=== PATIENT | female | born 1995 | race Hispanic/Latino ===

== ENCOUNTER 2018-01-05 21:54 | Emergency (ER) | payer BC, OTHER ==
--- NOTE | 2018-01-05 23:44 | EDPHYS ---
Physician Documentation [facility] Name: Zacarias Thomson Age: 22 yrs Sex: Female : 1995 Arrival Date: 01/05/2018 Time: 21:58 Bed 14 Private MD: Esequiel Boyd T ED Physician Josesito Woods HPI: 01/05 23:35 This 22 yrs old Female presents to ER via Ambulatory with complaints of snw Headache, Nausea. 23:35 The patient complains of pain to the forehead. The patient describes the headache as snw waxing and waning. Onset: The symptoms/episode began/occurred suddenly. Associated signs and symptoms: Pertinent positives: weakness, nausea. Severity of symptoms: At its worst the pain was moderate. Headache History: Denies prior headaches. It is unknown whether or not the patient has had similar symptoms in the past. The patient has not recently seen a physician. 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 - Social history:: Smoking status: Patient uses tobacco products, smokes one-half pack cigarettes per day, Patient/guardian denies using alcohol, street drugs. ROS: 23:34 Eyes: Negative for injury, pain, redness, and discharge, ENT: Negative for injury, snw pain, and discharge, Neck: Negative for injury, pain, and swelling, Cardiovascular: Negative for chest pain, palpitations, and edema, Respiratory: Negative for shortness of breath, cough, wheezing, and pleuritic chest pain. 23:34 Back: Negative for injury and pain, : Negative for injury, bleeding, discharge, and swelling, MS/Extremity: Negative for injury and deformity, Skin: Negative for injury, rash, and discoloration. 23:34 Constitutional: Positive for body aches, malaise. 23:34 Abdomen/GI: Positive for nausea. 23:34 Neuro: Positive for headache, lightheadedness. Exam: 23:34 Constitutional: This is a well developed, well nourished patient who is awake, alert, snw and in no acute distress. Head/Face: Normocephalic, atraumatic. Eyes: Pupils equal round and reactive to light, extra-ocular motions intact. Lids and lashes normal. Conjunctiva and sclera are non-icteric and not injected. Cornea within normal limits. Periorbital areas with no swelling, redness, or edema. ENT: Nares patent. No nasal discharge, no septal abnormalities noted. Tympanic membranes are normal and external auditory canals are clear. Oropharynx with no redness, swelling, or masses, exudates, or evidence of obstruction, uvula midline. Mucous membranes moist. Neck: Trachea midline, no thyromegaly or masses palpated, and no cervical lymphadenopathy. Supple, full range of motion without nuchal rigidity, or vertebral point tenderness. No Meningismus. Chest/axilla: Normal chest wall appearance and motion. Nontender with no deformity. No lesions are appreciated. Cardiovascular: Regular rate and rhythm with a normal S1 and S2. No gallops, murmurs, or rubs. Normal PMI, no JVD. No pulse deficits. Respiratory: Lungs have equal breath sounds bilaterally, clear to auscultation and percussion. No rales, rhonchi or wheezes noted. No increased work of breathing, no retractions or nasal flaring. Abdomen/GI: Soft, non-tender, with normal bowel sounds. No distension or tympany. No guarding or rebound. No evidence of tenderness throughout. Back: No spinal tenderness. No costovertebral tenderness. Full range of motion. Skin: Warm, dry with normal turgor. Normal color with no rashes, no lesions, and no evidence of cellulitis. MS/ Extremity: Pulses equal, no cyanosis. Neurovascular intact. Full, normal range of motion. Neuro: Awake and alert, GCS 15, oriented to person, place, time, and situation. Cranial nerves II-XII grossly intact. Motor strength 5/5 in all extremities. Sensory grossly intact. Cerebellar exam normal. Normal gait. Psych: Awake, alert, with orientation to person, place and time. Behavior, mood, and affect are within normal limits. Vital Signs: 22:23 BP 112 / 79; Pulse 63; Resp 18; Temp 98.1(O); Pulse Ox 99% on R/A; Weight 111.13 kg fc (R); Height 5 ft. 4 in. (162.56 cm) (R); Pain 3/10; 22:23 Body Mass Index 42.05 (111.13 kg, 162.56 cm) [place] Coma Score: 23:50 Eye Response: spontaneous(4). Verbal Response: oriented(5). Motor Response: obeys snw commands(6). Total: 15. MDM: 22:56 Patient medically screened. [facility] 23:50 Data reviewed: vital signs, nurses notes. Data interpreted: Pulse oximetry: on room air snw is 99 %. Counseling: I had a detailed discussion with the patient and/or guardian regarding: the historical points, exam findings, and any diagnostic results supporting the discharge/admit diagnosis, lab results, the need for outpatient follow up, to return to the emergency department if symptoms worsen or persist or if there are any questions or concerns that arise at home. Special discussion: Based on the history and exam findings, there is no indication for further emergent testing or inpatient evaluation. I discussed with the patient/guardian the need to see the primary care provider for further evaluation of the symptoms. 01/05 23:46 Order name: Urine Dipstick--Ancillary (enter results) [facility] 01/05 23:46 Order name: Urine --Ancillary (enter results) [facility] 01/06 00:04 Order name: Urine Microscopic Only [facility] 01/05 23:34 Order name: Urine Test (obtain specimen); Complete Time: 23:44 snw 01/05 23:34 Order name: Urine Dipstick-Ancillary (obtain specimen); Complete Time: 23:44 snw 01/06 00:06 Order name: Urine Culture EDIL 01/06 00:06 Order name: Group A Streptococcus Rapid Sc EDIL Administered Medications: 01/06 00:00 Drug: Rocephin (cefTRIAXone) 1 grams Route: IM; Site: left gluteus; 00:00 Follow up: Response: No adverse reaction fc Disposition: 09:16 Co-signature as Attending Physician, Josesito Woods MD I agree with the assessment and [facility] plan of care. Disposition: 01/05/18 23:44 Discharged to Home. Impression: Urinary tract infection, site not specified, Headache. - Condition is Stable. - Discharge Instructions: Urinary Tract Infection, Rehydration, Adult. - Prescriptions for Macrobid 100 mg Oral Capsule - take 1 capsule by ORAL route every 12 hours for 10 days; 20 capsule. Diclofenac Sodium 75 mg Oral Tablet Sustained Release - take 1 tablet by ORAL route 2 times per day; 30 tablet. - Work release form, Medication Reconciliation Form, Thank You Letter, Antibiotic Education, Prescription Opioid Use form. - Follow up: Esequiel Boyd MD; When: 2 - 3 days; Reason: Recheck today's complaints, Continuance of care, Re-evaluation by your physician. Follow up: Emergency Department; When: As needed; Reason: Worsening of condition. Signatures: Dispatcher [employer] EDMS Shagufta Rico RN RN mw Anderson, Corey, MD MD cha Therrien, Shelly, SUPERVISOR-C SUPERVISOR-Csnw Leilani Mello, RN RN fc
--- NOTE | 2018-01-05 23:44 | ER ---
Nurse's Notes [facility] Name: Zacarias Thomson Age: 22 yrs Sex: Female : 1995 Arrival Date: 01/05/2018 Time: 21:58 Bed 14 Private MD: Esequiel Boyd T Diagnosis: Urinary tract infection, site not specified;Headache Presentation: 01/05 22:17 Presenting complaint: Patient states: for the past few hrs she has been having fc headache, nausea and felt as if she was going to faint. Transition of care: patient was not received from another setting of care. Onset of symptoms was January 05, 2018 at 19:00. Care prior to arrival: Medication(s) given: Motrin, 600 mg, last at 2100. 22:17 Method Of Arrival: Ambulatory fc 22:17 Acuity: ADALBERTO 3 Triage Assessment: 22:24 Headache History: Denies prior headaches. General: Appears comfortable, Behavior is fc calm, cooperative, appropriate for age. Pain: Complains of pain in head Pain currently is 3 out of 10 on a pain scale. Quality of pain is described as aching, throbbing, Pain began 3 hours ago. Is continuous, Also complains of nausea. EENT: No deficits noted. Neuro: Level of Consciousness is awake, alert, obeys commands, Oriented to person, place, time, situation, Biological Engineer are equal bilaterally Moves all extremities. Full function Gait is steady, Speech is normal, Facial symmetry appears normal, Reports headache in left frontal area. Cardiovascular: No deficits noted. Respiratory: No deficits noted. GI: Reports nausea. : No deficits noted. Derm: Skin is pink, warm \T\ dry. Musculoskeletal: Circulation, motion, and sensation intact. Capillary refill < 3 seconds, Range of motion: intact in all extremities. 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 - Social history:: Smoking status: Patient uses tobacco products, smokes one-half pack cigarettes per day, Patient/guardian denies using alcohol, street drugs. Screenin:45 Abuse screen: Denies threats or abuse. Denies injuries from another. Nutritional aa1 screening: No deficits noted. Tuberculosis screening: No symptoms or risk factors identified. Fall Risk None identified. Assessment: 22:45 General: Appears in no apparent distress. comfortable, Behavior is calm, cooperative, aa1 appropriate for age. Pain: Denies pain. Neuro: Level of Consciousness is awake, alert, obeys commands, Oriented to person, place, time, situation, Moves all extremities. Full function Gait is steady, Speech is normal. Respiratory: Airway is patent Respiratory effort is even, unlabored, Respiratory pattern is regular, symmetrical. GI: Abdomen is non-distended, Abd is soft and non tender X 4 quads. Reports nausea. : No signs and/or symptoms were reported regarding the genitourinary system. EENT: No signs and/or symptoms were reported regarding the EENT system. Derm: Skin is intact, is healthy with good turgor, Skin is pink, warm \T\ dry. Musculoskeletal: Circulation, motion, and sensation intact. Capillary refill < 3 seconds. Vital Signs: 22:23 BP 112 / 79; Pulse 63; Resp 18; Temp 98.1(O); Pulse Ox 99% on R/A; Weight 111.13 kg fc (R); Height 5 ft. 4 in. (162.56 cm) (R); Pain 3/10; 22:23 Body Mass Index 42.05 (111.13 kg, 162.56 cm) fc [place] Coma Score: 23:50 Eye Response: spontaneous(4). Verbal Response: oriented(5). Motor Response: obeys snw commands(6). Total: 15. ED Course: 21:58 Patient arrived in ED. do 21:58 Esequiel Boyd MD is Private Physician. do 22:18 Triage completed. fc 22:19 Arm band placed on Patient placed in waiting room, Patient notified of wait time. fc 22:45 Patient has correct armband on for positive identification. Bed in low position. Call aa1 light in reach. Pulse ox on. NIBP on. 22:55 Cristiana Potter FNP-C is PHCP. snw 22:55 Josesito Woods MD is Attending Physician. snw 23:05 Jenn Rivera RN is Primary Nurse. aa1 23:44 Esequiel Boyd MD is Referral Physician. [facility] 01/06 00:18 No provider procedures requiring assistance completed. Patient did not have IV access mw during this emergency room visit. Administered Medications: 00:00 Drug: Rocephin (cefTRIAXone) 1 grams Route: IM; Site: left gluteus; 00:00 Follow up: Response: No adverse reaction fc Outcome: 01/05 23:44 Discharge ordered by . snw 01/06 00:18 Discharged to home ambulatory. mw Condition: good Discharge instructions given to patient, Instructed on discharge instructions, follow up and referral plans. no drinking with medication, medication usage, Prescriptions given X 2. 00:19 Patient left the ED. mw Addendum: 01/09/2018 16:41 Addendum: Culture Results: Positive urine culture. Phone call Attempt #1 called patient s s at 1627, Left VM. Signatures: Shagufta Rico RN RN Jenn Rivera RN RN aa1 Cristiana Potter, DISTRICT SUPERINTENDENT-C DISTRICT SUPERINTENDENT-Csnw Leilani Mello RN RN Maddie Simpson RN RN Anjana Wilson do
[2018-01-05] MEDS ORDERED: CEFTRIAXONE 1000 MG/VIAL ONE (23:53)
[2018-01-05] MEDS ORDERED: WATER FOR INJ,STERILE 10 ML ONE (23:54)
[2018-01-06 00:46] VITALS: BP 112/79; TEMP 98.1; O2SAT 99
[2018-01-06 00:50] LABS: Urine Blood TRACE (NEG); Urine Glucose NEGATIVE (NEG); Urine Protein NEGATIVE (NEG); Urine Specific Gravity 1.025 (1.005-1.030)
[2018-01-06 01:07] LABS: Urine RBC <5 /HPF (NONE SEEN)
[2018-01-06 01:08] LABS: Urine Bacteria LOADED /HPF (<20); Urine Culture Reflex Order NOT NEEDED
== END 2018-01-06 00:19 | disposition home or self-care (01) ==
LOC: ER 21:54
DX: N39.0 Urinary tract infection, site not specified (principal); F17.210 Nicotine dependence, cigarettes, uncomplicated; Z88.2 Allergy status to sulfonamides
CPT/HCPCS: 81003; 81015; 81025; 87070; 87077; 87081; 87086; 87088; 87186; 96372; 99283

== ENCOUNTER 2018-01-14 18:52 | Emergency (ER) | payer BC, OTHER ==
[2018-01-14] MEDS ORDERED: FAMOTIDINE 20 MG/2 ML VIAL IV ONE (20:47)
[2018-01-14] MEDS ORDERED: ONDANSETRON 4 MG/2 ML VIAL ONE (20:47)
[2018-01-14] MEDS ORDERED: NA CHLORIDE 0.9% 1,000 ML ONE (20:47)
[2018-01-14] MEDS ORDERED: PROMETHAZINE 25 MG/ML VIAL ONE (20:47)
[2018-01-14 21:26] LABS: Absolute Lymphocytes (CBC) 0.6 K/uL (0.7-4.9); Absolute Monocytes 0.5 K/uL (0.1-1.3); Basophils % 0.2 % (0-1.3); Lymphocytes % 3.9 % (15.3-44.8); MCH 27.6 pg (27.0-35.0); MCV 82.6 fL (80-100); MPV 8.6 fL (7.6-11.3); Monocytes % 3.2 % (3.3-12.3); RBC Red Blood Cell Count 5.82 M/uL (3.86-4.86)
--- NOTE | 2018-01-14 21:41 | RAD REPORT ---
EXAM DESCRIPTION: Seth Single View01/14/2018 9:30 pm CLINICAL HISTORY: Abdominal pain COMPARISON: 2014 FINDINGS: The lungs appear clear of acute infiltrate. The heart is normal size IMPRESSION: No acute abnormalities displayed
[2018-01-14 21:46] LABS: Blood Morphology Comment NOT SEEN (NOT SEEN); Platelet Estimate ADEQ; Urine White Blood Cell Casts OK
[2018-01-14 21:47] LABS: Urine Bacteria 20-50 /HPF (<20); Urine Culture Reflex Order REFLEXED; Urine Mucus 2+ /HPF (NONE SEEN); Urine RBC <5 /HPF (NONE SEEN)
[2018-01-14 22:12] LABS: Bicarbonate 27 mEq/L (21-31); Glucose Level 97 mg/dL (65-120); Lipase 15 U/L (22-51); Potassium 3.6 mEq/L (3.6-5.0); Sodium Level 135 mEq/L (135-145)
[2018-01-14 22:19] LABS: ALT/SGPT 14 IU/L (10-60); AST/SGOT 17 IU/L (10-42); Albumin 3.2 g/dL (3.2-5.5); Alkaline Phosphatase 64 IU/L (42-121); Amylase Level 48 U/L (28-100); BUN Blood Urea Nitrogen 11 mg/dL (6-20); Bilirubin Direct 0.2 mg/dL (0-0.2); Protein, Total 7.1 g/dL (6.0-8.3)
[2018-01-14 23:45] LABS: Urine Blood NEGATIVE (NEG); Urine Glucose NEGATIVE (NEG); Urine Protein 1+ (NEG)
[2018-01-15] MEDS ORDERED: ONDANSETRON 4 MG/2 ML VIAL ONE (00:07)
[2018-01-15] MEDS ORDERED: NA CHLORIDE 0.9% 1,000 ML ONE (00:07)
[2018-01-15] MEDS ORDERED: FENTANYL CITR 100 MCG/2 ML ONE (00:07)
--- NOTE | 2018-01-15 01:28 | ER ---
Nurse's Notes [facility] Name: Zacarias Thomson Age: 22 yrs Sex: Female : 1995 Arrival Date: 01/14/2018 Time: 18:53 Bed 20 Private MD: Diagnosis: Gastroenteritis Presentation: 01/14 19:49 Presenting complaint: Patient states: Vomiting x 10 episodes today. Reports vomiting aj undigested subway sandwich this AM, that she ate for dinner last night. Reports she is unable to tolerate food or liquids today. Transition of care: patient was not received from another setting of care. Onset of symptoms was January 14, 2018. Initial Sepsis Screen: Does the patient meet any 2 criteria? No. Patient's initial sepsis screen is negative. Does the patient have a suspected source of infection? No. Patient's initial sepsis screen is negative. Care prior to arrival: None. 19:49 Method Of Arrival: Ambulatory aj 19:49 Acuity: ADALBERTO 3 aj Triage Assessment: 19:51 General: Appears in no apparent distress. comfortable, Behavior is calm, cooperative, aj appropriate for age. Pain: Complains of pain in right upper quadrant and left upper quadrant. Neuro: Level of Consciousness is awake, alert, obeys commands, Oriented to person, place, time, situation, Appropriate for age. Respiratory: Airway is patent Trachea midline Respiratory effort is even, unlabored, Respiratory pattern is regular, symmetrical. GI: Reports upper abdominal pain, nausea, vomiting. Derm: Skin is intact, is healthy with good turgor, Skin is pink, warm \\T\\ dry. normal. 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 - Social history:: Smoking status: Patient/guardian denies using tobacco. Screenin:02 Abuse screen: Denies threats or abuse. Denies injuries from another. Nutritional bs1 screening: No deficits noted. Tuberculosis screening: No symptoms or risk factors identified. Fall Risk None identified. Assessment: 20:03 General: Appears in no apparent distress. uncomfortable, Behavior is calm, cooperative, bs1 appropriate for age. Pain: Complains of pain in left upper quadrant and right upper quadrant Pain does not radiate. Neuro: Level of Consciousness is awake, alert, obeys commands, Oriented to person, place, time, situation, Appropriate for age Log Deck Tender are equal bilaterally Moves all extremities. Gait is steady, Speech is normal. Cardiovascular: Denies chest pain, palpitations, shortness of breath, Heart tones S1 S2 present Capillary refill < 3 seconds Patient's skin is warm and dry. Respiratory: Airway is patent Trachea midline Respiratory effort is even, unlabored, Respiratory pattern is regular, symmetrical, Breath sounds are clear bilaterally. GI: Abdomen is round Bowel sounds present X 4 quads. Abdomen is tender to palpation in right upper quadrant and left upper quadrant Reports upper abdominal pain, diarrhea, intolerance of food, nausea, vomiting. : No deficits noted. No signs and/or symptoms were reported regarding the genitourinary system. EENT: No deficits noted. No signs and/or symptoms were reported regarding the EENT system. Derm: Skin is intact. Musculoskeletal: Circulation, motion, and sensation intact. Capillary refill < 3 seconds, Range of motion: intact in all extremities. 21:03 Reassessment: Patient appears in no apparent distress at this time. No changes from bs1 previously documented assessment. Patient and/or family updated on plan of care and expected duration. Pain level reassessed. Patient is alert, oriented x 3, equal unlabored respirations, skin warm/dry/pink. 22:03 Reassessment: Patient and/or family updated on plan of care and expected duration. Pain bs1 level reassessed. Patient is alert, oriented x 3, equal unlabored respirations, skin warm/dry/pink. Pending lab results. Reassessment: Informed CT that patient finished oral contrast at 2245. Patient states "I am feeling relief from the medication.". 23:30 Reassessment: Patient appears in no apparent distress at this time. No changes from bs1 previously documented assessment. Patient and/or family updated on plan of care and expected duration. Pain level reassessed. Patient is alert, oriented x 3, equal unlabored respirations, skin warm/dry/pink. 01/15 00:10 Reassessment: Patient in CT. bs1 Vital Signs: 01/14 19:51 BP 133 / 71; Pulse 97; Resp 16; Temp 98.8; Pulse Ox 98% on R/A; Weight 111.13 kg; aj Height 5 ft. 4 in. (162.56 cm); 21:00 BP 111 / 66; Pulse 92; Resp 18; Pulse Ox 99% on R/A; oe 22:00 BP 110 / 58; Pulse 90; Resp 16; Pulse Ox 100% on R/A; bs1 23:00 BP 109 / 51; Pulse 85; Resp 17; Pulse Ox 98% on R/A; bs1 01/15 00:42 BP 108 / 51; Pulse 81; Resp 16; Pulse Ox 98% ; Pain 0/10; bs1 01:42 BP 110 / 60; Pulse 85; Resp 18; Temp 98.0; Pulse Ox 100% ; Pain 0/10; bs1 01/14 19:51 Body Mass Index 42.05 (111.13 kg, 162.56 cm) aj ED Course: 01/14 18:53 Patient arrived in ED. al2 19:50 Triage completed. aj 19:51 Arm band placed on left wrist. Patient placed in an exam room. aj 19:53 Josesito Collier PA is PHCP. cp 19:53 Josesito Woods MD is Attending Physician. cp 19:57 Nettie Haynes RN is Primary Nurse. bs1 20:02 Patient has correct armband on for positive identification. Bed in low position. Call bs1 light in reach. Side rails up X 1. Pulse ox on. NIBP on. 21:00 Inserted saline lock: 20 gauge in right antecubital area, using aseptic technique. bs1 Inserted By PILI Choudhary. 21:28 X-ray completed. Portable x-ray completed in exam room. Patient tolerated procedure kp1 well. 21:30 XRAY Chest (1 view) In Process Unspecified. EDMS 23:37 PHCP role handed off by Josesito Collier PA pm1 23:37 Leonardo Ryan NP is PHCP. pm1 01/15 00:35 CT Abd/Pelvis - W/Contrast: give oral contrast In Process Unspecified. EDMS 02:11 No provider procedures requiring assistance completed. IV discontinued, bleeding bs1 controlled, No redness/swelling at site. Pressure dressing applied. Administered Medications: 01/14 21:01 Drug: Phenergan 25 mg Route: IVP; Site: right antecubital; bs1 01/15 00:21 Follow up: Response: No adverse reaction bs1 01/14 21:01 Drug: Pepcid 20 mg Route: IVP; Site: right antecubital; bs1 01/15 00:22 Follow up: Response: No adverse reaction bs1 01/14 21:01 Drug: Zofran 4 mg Route: IVP; Site: right antecubital; bs1 01/15 00:22 Follow up: Response: No adverse reaction bs1 01/14 21:20 Drug: NS 0.9% 1000 ml Route: IV; Rate: 1 bolus; Site: right antecubital; bs1 01/15 02:12 Follow up: IV Status: Completed infusion bs1 Outcome: 01:27 Discharge ordered by . pm1 02:11 Discharged to home ambulatory. bs1 02:11 Condition: stable 02:11 Discharge instructions given to patient, Instructed on discharge instructions, follow up and referral plans. medication usage, Demonstrated understanding of instructions, follow-up care, medications, Prescriptions given X 3. 02:12 Patient left the ED. bs1 Addendum: 01/20/2018 10:09 Addendum: Culture Results: Positive urine culture. Phone call Attempt #1 no answer, s s left VM. Signatures: Dispatcher [employer] EDShelly Barkley RN RN aj Smirch, Shelby, RN RN Josesito Heart PA PA Leonardo Onofre, RECYCLING DIRECTOR RECYCLING DIRECTOR pm1 Blake Ceballos Kathy kp1 Nettie Haynes RN RN bs1 Christine Ponce Corrections: (The following items were deleted from the chart) 01/14 21:48 21:00 Inserted saline lock: 20 gauge in right antecubital area, using aseptic bs1 technique. bs1
--- NOTE | 2018-01-15 01:28 | EDPHYS ---
Physician Documentation [facility] Name: Zacarias Thomson Age: 22 yrs Sex: Female : 1995 Arrival Date: 01/14/2018 Time: 18:53 Bed 20 Private MD: ED Physician Josesito Woods HPI: 01/14 20:20 This 22 yrs old Female presents to ER via Ambulatory with complaints of cp Nausea/Vomiting/Diarrhea, Headache. 20:20 The patient presents to the emergency department with nausea, with "dry heaves", cp vomiting, that is continuous, 10 times today, diarrhea, 2 times today, abdominal pain, of the epigastric area. Onset: The symptoms/episode began/occurred this morning. Possible causes: unknown. Associated signs and symptoms: Pertinent negatives: constipation, dysuria, fever, GI bleeding. Severity of symptoms: in the emergency department the symptoms are unchanged despite home interventions, took 2 tablets of Zofran w/o relief today. 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 - Social history:: Smoking status: Patient/guardian denies using tobacco. ROS: 20:25 Constitutional: Positive for poor PO intake, Negative for body aches, chills, fever. cp 20:25 Eyes: Negative for injury, pain, redness, and discharge. cp 20:25 ENT: Negative for drainage from ear(s), ear pain, sore throat, difficulty swallowing, difficulty handling secretions. 20:25 Cardiovascular: Negative for chest pain, edema, palpitations. 20:25 Respiratory: Negative for cough, shortness of breath, wheezing. 20:25 Abdomen/GI: Positive for abdominal pain, nausea, vomiting, diarrhea, Negative for constipation, hematemesis, black/tarry stool, rectal bleeding. 20:25 Back: Negative for pain at rest, pain with movement, radiated pain. 20:25 : Negative for urinary symptoms. 20:25 Skin: Negative for cellulitis, rash. 20:25 Neuro: Negative for altered mental status, dizziness, headache, syncope, near syncope, weakness. 20:25 All other systems are negative. Exam: 20:30 Constitutional: The patient appears in no acute distress, alert, awake, non-toxic, well cp developed, well nourished, obese. 20:30 Head/Face: Normocephalic, atraumatic. Eyes: Pupils equal round and reactive to light, cp extra-ocular motions intact. Lids and lashes normal. Conjunctiva and sclera are non-icteric and not injected. Cornea within normal limits. Periorbital areas with no swelling, redness, or edema. ENT: Nares patent. No nasal discharge, no septal abnormalities noted. Tympanic membranes are normal and external auditory canals are clear. Oropharynx with no redness, swelling, or masses, exudates, or evidence of obstruction, uvula midline. Mucous membranes moist. Neck: Trachea midline, no thyromegaly or masses palpated, and no cervical lymphadenopathy. Supple, full range of motion without nuchal rigidity, or vertebral point tenderness. No Meningismus. Chest/axilla: Normal chest wall appearance and motion. Nontender with no deformity. No lesions are appreciated. 20:30 Cardiovascular: Rate: normal, Rhythm: regular, Edema: is not appreciated, JVD: is not appreciated. 20:30 Respiratory: the patient does not display signs of respiratory distress, Respirations: normal, no use of accessory muscles, no retractions, no splinting, no tachypnea, labored breathing, is not present, Breath sounds: are clear throughout, no decreased breath sounds, no stridor, no wheezing. 20:30 Abdomen/GI: Inspection: obese Bowel sounds: active, all quadrants, Palpation: soft, in all quadrants, moderate abdominal tenderness, in the epigastric area, rebound tenderness, is not appreciated, voluntary guarding, is elicited in the epigastric area, involuntary guarding, is not appreciated. 20:30 Back: pain, is absent, ROM is normal, CVA tenderness, is absent. 20:30 Skin: cellulitis, is not appreciated, no rash present. 20:30 Neuro: Orientation: to person, place \\T\\ time. Mentation: is normal, Cerebellar function: is grossly normal, Motor: moves all fours, strength is normal, Sensation: no obvious gross deficits. Vital Signs: 19:51 BP 133 / 71; Pulse 97; Resp 16; Temp 98.8; Pulse Ox 98% on R/A; Weight 111.13 kg; aj Height 5 ft. 4 in. (162.56 cm); 21:00 BP 111 / 66; Pulse 92; Resp 18; Pulse Ox 99% on R/A; oe 22:00 BP 110 / 58; Pulse 90; Resp 16; Pulse Ox 100% on R/A; bs1 23:00 BP 109 / 51; Pulse 85; Resp 17; Pulse Ox 98% on R/A; bs1 01/15 00:42 BP 108 / 51; Pulse 81; Resp 16; Pulse Ox 98% ; Pain 0/10; bs1 01:42 BP 110 / 60; Pulse 85; Resp 18; Temp 98.0; Pulse Ox 100% ; Pain 0/10; bs1 01/14 19:51 Body Mass Index 42.05 (111.13 kg, 162.56 cm) aj MDM: 01/14 19:53 Patient medically screened. cp 21:00 Differential diagnosis: gastritis, pancreatitis, appendicitis, diverticulitis, viral cp gastroenteritis, gastroenteritis. 01/15 01:24 Data reviewed: vital signs. Data interpreted: Pulse oximetry: on room air is 98 %. pm1 Interpretation: normal. Counseling: I had a detailed discussion with the patient and/or guardian regarding: the historical points, exam findings, and any diagnostic results supporting the discharge/admit diagnosis, lab results, radiology results, the need for outpatient follow up, to return to the emergency department if symptoms worsen or persist or if there are any questions or concerns that arise at home. 01/14 20:24 Order name: Amylase, Serum; Complete Time: 23:11 cp 01/14 20:24 Order name: Basic Metabolic Panel; Complete Time: 23:11 cp 01/14 23:11 Interpretation: Reviewed. cp 01/14 20:24 Order name: CBC with Diff; Complete Time: 22:12 cp 01/14 23:11 Interpretation: Normal except: WBC 16.2; RBC 5.82; HGB 16.1; HCT 48.0; KYARA% 92.7; LYM% cp 3.9; MN% 3.2; NEUT A 15.0; LYMA 0.6. 01/14 20:24 Order name: Creatinine for Radiology; Complete Time: 23:11 cp 01/14 23:12 Interpretation: Reviewed. cp 01/14 20:24 Order name: Hepatic Function; Complete Time: 23:11 cp 01/14 23:11 Interpretation: Normal except: GLOB 3.9; A/G 0.8. cp 01/14 20:24 Order name: Lipase; Complete Time: 23:11 cp 01/14 23:11 Interpretation: Reviewed. cp 01/14 20:24 Order name: Urine Microscopic Only; Complete Time: 22:12 cp 01/14 23:12 Interpretation: Normal except: UBACT 20-50; SQEPI 10-20. cp 01/14 21:04 Order name: Urine Dipstick--Ancillary (enter results); Complete Time: 01:20 em1 01/14 21:04 Order name: Urine --Ancillary (enter results); Complete Time: 01:20 em1 01/14 21:20 Order name: XRAY Chest (1 view); Complete Time: 22:12 cp 01/14 21:28 Order name: CBC Smear Scan; Complete Time: 22:12 EDMS 01/14 21:48 Order name: Urine Culture EDMA 01/14 22:13 Order name: CT Abd/Pelvis - W/Contrast: give oral contrast; Complete Time: 22:44 cp 01/14 20:16 Order name: PO challenge; Complete Time: 22:23 cp 01/14 20:24 Order name: Urine Test (obtain specimen); Complete Time: 21:02 cp 01/14 20:24 Order name: IV Saline Lock; Complete Time: 21:21 cp 01/14 20:24 Order name: Labs collected and sent; Complete Time: 21:21 cp 01/14 20:24 Order name: Urine Dipstick-Ancillary (obtain specimen); Complete Time: 21:02 cp Administered Medications: 01/14 21:01 Drug: Phenergan 25 mg Route: IVP; Site: right antecubital; bs1 01/15 00:21 Follow up: Response: No adverse reaction bs1 01/14 21:01 Drug: Pepcid 20 mg Route: IVP; Site: right antecubital; bs1 01/15 00:22 Follow up: Response: No adverse reaction bs1 01/14 21:01 Drug: Zofran 4 mg Route: IVP; Site: right antecubital; bs1 01/15 00:22 Follow up: Response: No adverse reaction bs1 01/14 21:20 Drug: NS 0.9% 1000 ml Route: IV; Rate: 1 bolus; Site: right antecubital; bs1 01/15 02:12 Follow up: IV Status: Completed infusion bs1 Disposition: 01/15/18 01:27 Discharged to Home. Impression: Gastroenteritis . - Condition is Stable. - Discharge Instructions: Diarrhea, Nausea and Vomiting. - Prescriptions for Flagyl 500 mg Oral Tablet - take 1 tablet by ORAL route every 8 hours for 7 days; 21 tablet. Cipro 500 mg Oral Tablet - take 1 tablet by ORAL route every 12 hours for 7 days; 14 tablet. promethazine 25 mg Oral Tablet - take 1 tablet by ORAL route every 6 hours As needed; 20 tablet. - Medication Reconciliation Form, Thank You Letter, Antibiotic Education, Prescription Opioid Use, Work release form form. - Follow up: Emergency Department; When: As needed; Reason: Worsening of condition. Follow up: Private Physician; When: 2 - 3 days; Reason: Recheck today's complaints, Continuance of care, Re-evaluation by your physician. - Problem is new. - Symptoms have improved. Addendum: 01/16/2018 07:27 Co-signature as Attending Physician, Josesito Woods MD I agree with the assessment and c reddy plan of care. Signatures: Dispatcher [employer] Shelly Daniel, RN Josesito De Santiago MD MD cha Page, Corey, PA PA cp Marinas, Patrick, SIMRAN CALCULUS TEACHER pm1 Nettie Haynes RN RN bs1
[2018-01-15 02:41] VITALS: BP 110/60; TEMP 98; O2SAT 100
--- NOTE | 2018-01-15 10:26 | RAD REPORT ---
EXAM DESCRIPTION: CT - Abdomen Pelvis W Contrast - 01/15/2018 9:01 am CLINICAL HISTORY: Abdominal pain. Epigastric pain COMPARISON: 2014 TECHNIQUE: Computed axial tomography of the abdomen and pelvis was obtained. 100 cc Isovue-300 is ad ministered intravenously. Oral contrast was given. All CT scans are performed using dose optimization technique as appropriate and may include automated exposure control or mA/KV adjustment according to patient size. FINDINGS: The gallbladder has been removed. A tiny umbilical hernia is present. The liver, spleen, pancreas, adrenals and kidneys appear unremarkable. The appendix is normal caliber. There is no evidence of diverticulitis An IUD lies within uterine body. Mucosal folds of several loops of jejunum appear mildly thickened IMPRESSION: An IUD lies within the uterine body Mild thickening of the mucosal folds of several loops of jejunum may indicate an enteritis hernia
== END 2018-01-15 02:12 | disposition home or self-care (01) ==
LOC: ER 18:52
DX: K52.9 Noninfective gastroenteritis and colitis, unspecified (principal); Z88.2 Allergy status to sulfonamides
CPT/HCPCS: 36415; 71045; 74177; 80048; 80076; 81003; 81015; 81025; 82150; 83690; 85025; 87077; 87086; 87088; 87186; 96361; 96374; 96375; 99284; J2405; J2550; J3010; J7030; Q9967

== ENCOUNTER 2019-03-05 22:52 | Emergency (ER) | payer BC, OTHER ==
--- OUTSIDE RECORDS SUMMARY | 2019-03-05 22:55 | XMS REPORT ---
:1995 Author Organization [facility] Address [address] [place] [address] Dr. Jimenez [address] [place] [id number] Care Team Providers Name Role Phone Unavailable Unavailable Unavailable Problems This patient has no known problems. Allergies, Adverse Reactions, Alerts This patient has no known allergies or adverse reactions. Medications This patient has no known medications.
--- NOTE | 2019-03-05 23:24 | ER ---
Nurse's Notes [facility] Name: Zacarias Thomson Age: 23 yrs Sex: Female : 1995 Arrival Date: 03/05/2019 Time: 22:56 Bed 5 Private MD: Diagnosis: Nausea with vomiting, unspecified;Diarrhea, unspecified;Upper abdominal pain, unspecified;Urinary tract infection, site not specified Presentation: 03/05 23:07 Presenting complaint: Patient states: N/V/D x 3 days. Transition of care: patient was aa1 not received from another setting of care. Onset of symptoms was March 03, 2019. Risk Assessment: Do you want to hurt yourself or someone else? Patient reports no desire to harm self or others. Initial Sepsis Screen: Does the patient meet any 2 criteria? No. Patient's initial sepsis screen is negative. Does the patient have a suspected source of infection? No. Patient's initial sepsis screen is negative. Care prior to arrival: None. 23:07 Method Of Arrival: Ambulatory aa1 23:07 Acuity: ADALBERTO 3 aa1 Triage Assessment: 23:08 General: Appears in no apparent distress. comfortable, Behavior is calm, cooperative, aa1 appropriate for age. 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 - Social history:: Smoking status: Patient uses tobacco products, denies chronic smoking, but will smoke occasionally. - Ebola Screening: : No symptoms or risks identified at this time. Screenin:15 Abuse screen: Denies threats or abuse. Nutritional screening: No deficits noted. ea Tuberculosis screening: No symptoms or risk factors identified. Fall Risk None identified. Assessment: 23:15 General: Appears uncomfortable, Behavior is calm, cooperative, appropriate for age. ea Pain: Complains of pain in epigastric area. Neuro: Level of Consciousness is awake, alert, obeys commands, Oriented to person, place, time, situation. Cardiovascular: Patient's skin is warm and dry. Respiratory: Airway is patent Respiratory effort is even, unlabored, Respiratory pattern is regular, symmetrical. GI: Abdomen is non-distended, obese. Derm: Skin is pink, warm \T\ dry. 03/06 00:01 Reassessment: Patient and/or family updated on plan of care and expected duration. Pain ea level reassessed. Patient is alert, oriented x 3, equal unlabored respirations, skin warm/dry/pink. Discharge instruction given to patient verbalized the understanding of instruction. Pt left ED ambulatory tolerating well. Vital Signs: 03/05 23:08 BP 124 / 79; Pulse 90; Resp 18; Temp 99.8(O); Pulse Ox 100% on R/A; Weight 111.13 kg; aa1 Height 5 ft. 4 in. (162.56 cm); Pain 9/10; 03/06 00:00 BP 107 / 64; Pulse 80; Resp 18; Temp 98; Pulse Ox 100% ; ea 03/05 23:08 Body Mass Index 42.05 (111.13 kg, 162.56 cm) aa1 ED Course: 03/05 22:56 Patient arrived in ED. ag3 23:02 Cristiana Potter FNP-C [facility]. snw 23:02 Fortunato Cat MD is Attending Physician. snw 23:07 Funmi Mane, PILI is Primary Nurse. ea 23:08 Triage completed. aa1 23:08 Arm band placed on right wrist. Patient placed in an exam room, on a stretcher. aa1 23:15 Patient has correct armband on for positive identification. Bed in low position. Call ea light in reach. 23:59 No provider procedures requiring assistance completed. Patient did not have IV access ea during this emergency room visit. Administered Medications: 23:28 Drug: Zofran 4 mg Route: PO; ea 23:58 Follow up: Response: No adverse reaction ea 23:35 Drug: Rocephin (cefTRIAXone) 1 grams Route: IM; Site: right gluteus; ea 23:58 Follow up: Response: No adverse reaction ea 23:56 Drug: CarafATE 1 grams Route: PO; ea 23:58 Follow up: Response: Medication administered at discharge. ea 23:56 Drug: Phenergan 25 mg Route: IM; Site: right deltoid; ea 23:58 Follow up: Response: Medication administered at discharge. bladimir Outcome: 23:24 Discharge ordered by MD. calderon 03/06 00:04 Discharged to home ambulatory. bladimir Condition: improved Discharge instructions given to patient, Instructed on discharge instructions, follow up and referral plans. medication usage, Demonstrated understanding of instructions, follow-up care, medications, Prescriptions given X 2. 00:04 Patient left the ED. ea Addendum: 03/09/2019 09:49 Addendum: Culture Results: Positive urine culture. No further action required. Bacteria s s sensitive to prescribed antibiotic. Signatures: Jenn Veliz, RN RN aa1 Cristiana Potter, RHIT-C RHIT-Csnw Maddie Simpson RN RN ss Antunez, Elena, RN Glroia Mack ea3
--- NOTE | 2019-03-05 23:24 | EDPHYS ---
Physician Documentation [facility] Name: Zacarias Thomson Age: 23 yrs Sex: Female : 1995 Arrival Date: 03/05/2019 Time: 22:56 Bed 5 Private MD: ED Physician Fortunato Cat HPI: 03/05 23:07 This 23 yrs old Female presents to ER via Unassigned with complaints of snw Vomiting. 23:07 The patient presents to the emergency department with nausea, vomiting, diarrhea, snw abdominal pain, of the epigastric area, described as burning. Onset: The symptoms/episode began/occurred suddenly, today. Associated signs and symptoms: Pertinent positives: abdominal pain, diarrhea, nausea, vomiting. Severity of symptoms: At their worst the symptoms were moderate. The patient has experienced similar episodes in the past. It is unknown whether or not the patient has recently seen a physician. 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 - Social history:: Smoking status: Patient uses tobacco products, denies chronic smoking, but will smoke occasionally. - Ebola Screening: : No symptoms or risks identified at this time. ROS: 23:06 Constitutional: Negative for fever, chills, and weight loss, Eyes: Negative for injury, snw pain, redness, and discharge, ENT: Negative for injury, pain, and discharge, Neck: Negative for injury, pain, and swelling, Cardiovascular: Negative for chest pain, palpitations, and edema, Respiratory: Negative for shortness of breath, cough, wheezing, and pleuritic chest pain, Back: Negative for injury and pain, : Negative for injury, bleeding, discharge, and swelling, MS/Extremity: Negative for injury and deformity, Skin: Negative for injury, rash, and discoloration, Neuro: Negative for headache, weakness, numbness, tingling, and seizure. 23:06 Abdomen/GI: Positive for abdominal pain, nausea, vomiting, and diarrhea, of the epigastric area. Exam: 23:06 Constitutional: This is a well developed, well nourished patient who is awake, alert, snw and in no acute distress. Head/Face: Normocephalic, atraumatic. Eyes: Pupils equal round and reactive to light, extra-ocular motions intact. Lids and lashes normal. Conjunctiva and sclera are non-icteric and not injected. Cornea within normal limits. Periorbital areas with no swelling, redness, or edema. ENT: Nares patent. No nasal discharge, no septal abnormalities noted. Tympanic membranes are normal and external auditory canals are clear. Oropharynx with no redness, swelling, or masses, exudates, or evidence of obstruction, uvula midline. Mucous membranes moist. Neck: Trachea midline, no thyromegaly or masses palpated, and no cervical lymphadenopathy. Supple, full range of motion without nuchal rigidity, or vertebral point tenderness. No Meningismus. Chest/axilla: Normal chest wall appearance and motion. Nontender with no deformity. No lesions are appreciated. Cardiovascular: Regular rate and rhythm with a normal S1 and S2. No gallops, murmurs, or rubs. Normal PMI, no JVD. No pulse deficits. Respiratory: Lungs have equal breath sounds bilaterally, clear to auscultation and percussion. No rales, rhonchi or wheezes noted. No increased work of breathing, no retractions or nasal flaring. Abdomen/GI: Soft, non-tender, with normal bowel sounds. No distension or tympany. No guarding or rebound. No evidence of tenderness throughout. Back: No spinal tenderness. No costovertebral tenderness. Full range of motion. Skin: Warm, dry with normal turgor. Normal color with no rashes, no lesions, and no evidence of cellulitis. MS/ Extremity: Pulses equal, no cyanosis. Neurovascular intact. Full, normal range of motion. Neuro: Awake and alert, GCS 15, oriented to person, place, time, and situation. Cranial nerves II-XII grossly intact. Motor strength 5/5 in all extremities. Sensory grossly intact. Cerebellar exam normal. Normal gait. Psych: Awake, alert, with orientation to person, place and time. Behavior, mood, and affect are within normal limits. Vital Signs: 23:08 BP 124 / 79; Pulse 90; Resp 18; Temp 99.8(O); Pulse Ox 100% on R/A; Weight 111.13 kg; aa1 Height 5 ft. 4 in. (162.56 cm); Pain 9/10; 03/06 00:00 BP 107 / 64; Pulse 80; Resp 18; Temp 98; Pulse Ox 100% ; ea 03/05 23:08 Body Mass Index 42.05 (111.13 kg, 162.56 cm) aa1 MDM: 03/05 23:08 Patient medically screened. snw 23:25 Data reviewed: vital signs, nurses notes. Data interpreted: Pulse oximetry: on room air snw is 100 %. Interpretation: normal. Counseling: I had a detailed discussion with the patient and/or guardian regarding: the historical points, exam findings, and any diagnostic results supporting the discharge/admit diagnosis, lab results, the need for outpatient follow up, to return to the emergency department if symptoms worsen or persist or if there are any questions or concerns that arise at home. Special discussion: Based on the history and exam findings, there is no indication for further emergent testing or inpatient evaluation. I discussed with the patient/guardian the need to see the primary care provider for further evaluation of the symptoms. 03/05 22:57 Order name: Urine Microscopic Only; Complete Time: 23:50 snw 03/05 23:22 Order name: Urine Dipstick--Ancillary (enter results); Complete Time: 23:50 cm6 03/05 23:22 Order name: Urine --Ancillary (enter results); Complete Time: 23:50 cm6 03/05 23:23 Order name: Urine Culture [facility] 03/05 22:57 Order name: Urine Test (obtain specimen); Complete Time: 23:35 snw 03/05 22:57 Order name: Urine Dipstick-Ancillary (obtain specimen); Complete Time: 23:35 snw Administered Medications: 23:28 Drug: Zofran 4 mg Route: PO; ea 23:58 Follow up: Response: No adverse reaction ea 23:35 Drug: Rocephin (cefTRIAXone) 1 grams Route: IM; Site: right gluteus; ea 23:58 Follow up: Response: No adverse reaction ea 23:56 Drug: CarafATE 1 grams Route: PO; ea 23:58 Follow up: Response: Medication administered at discharge. ea 23:56 Drug: Phenergan 25 mg Route: IM; Site: right deltoid; ea 23:58 Follow up: Response: Medication administered at discharge. ea Disposition: 03/05/19 23:24 Discharged to Home. Impression: Nausea with vomiting, unspecified, Diarrhea, unspecified, Upper abdominal pain, unspecified, Urinary tract infection, site not specified. - Condition is Stable. - Discharge Instructions: Abdominal Pain, Adult, Food Choices to Help Relieve Diarrhea, Adult, Diarrhea, Adult, Nausea and Vomiting, Adult, Urinary Tract Infection, Adult, Rehydration, Adult. - Prescriptions for Bentyl 20 mg Oral Tablet - take 1 tablet by ORAL route every 6 hours As needed; 20 tablet. Macrobid 100 mg Oral Capsule - take 1 capsule by ORAL route every 12 hours for 10 days; 20 capsule. - Work release form, Medication Reconciliation Form, Thank You Letter, Antibiotic Education, Prescription Opioid Use form. - Follow up: Private Physician; When: 1 - 2 days; Reason: Recheck today's complaints, Continuance of care, Re-evaluation by your physician. Follow up: Emergency Department; When: As needed; Reason: Worsening of condition. Signatures: Dispatcher [employer] EDJenn Whittaker RN RN aa1 Cristiana Potter, NITROGLYCERIN NITRATOR OPERATOR BATCH-C NITROGLYCERIN NITRATOR OPERATOR BATCH-Csnw Funmi aMne RN RN ea Corrections: (The following items were deleted from the chart) 03/06 00:04 03/05 23:24 03/05/2019 23:24 Discharged to Home. Impression: Nausea with vomiting, ea unspecified; Diarrhea, unspecified; Upper abdominal pain, unspecified; Urinary tract infection, site not specified. Condition is Stable. Forms are Medication Reconciliation Form, Thank You Letter, Antibiotic Education, Prescription Opioid Use. Follow up: Private Physician; When: 1 - 2 days; Reason: Recheck today's complaints, Continuance of care, Re-evaluation by your physician. Follow up: Emergency Department; When: As needed; Reason: Worsening of condition. snw
[2019-03-05] MEDS ORDERED: ONDANSETRON 4 MG (ODT) TAB ONE (23:29)
[2019-03-05] MEDS ORDERED: SUCRALFATE 1 GM TABLET ONE (23:29)
[2019-03-05 23:34] LABS: Urine Blood 3+ (NEG); Urine Glucose NEGATIVE (NEG); Urine Protein NEGATIVE (NEG)
[2019-03-05 23:35] LABS: Urine Bacteria LOADED /HPF (<20)
[2019-03-05 23:36] LABS: Urine Culture Reflex Order REFLEXED; Urine RBC <5 /HPF (NONE SEEN)
[2019-03-05] MEDS ORDERED: CEFTRIAXONE 1000 MG/VIAL ONE (23:46)
[2019-03-06] MEDS ORDERED: PROMETHAZINE 25 MG/ML VIAL ONE (00:07)
[2019-03-06 00:48] VITALS: O2SAT 100
[2019-03-06 00:56] VITALS: BP 107/64; TEMP 98
== END 2019-03-06 00:04 | disposition home or self-care (01) ==
LOC: ER 22:52
DX: N39.0 Urinary tract infection, site not specified (principal); R19.7 Diarrhea, unspecified; R10.10 Upper abdominal pain, unspecified; Z88.2 Allergy status to sulfonamides
CPT/HCPCS: 81003; 81015; 81025; 87077; 87086; 87088; 87186; 96372; 99283; J2550

== ENCOUNTER 2020-11-30 18:50 | Inpatient (IN) | payer BC, OTHER, SELFPAY ==
--- OUTSIDE RECORDS SUMMARY | 2020-11-30 18:51 | XMS REPORT | Continuity of Care Document ---
:1995 Author Organization [facility] t Address [address] [place] [address] Care Team Providers Name Role Phone Singer LANDRY Attending Clinician Doctor Unassigned, Name Attending Clinician Unavailable Braden DOUGLAS Attending Clinician Carmelo SOUZA Attending Clinician April DOUGLAS, L Attending Clinician Manolo DOUGLAS, Bridger Attending Clinician Bridger French MD Admitting Clinician Problems This patient has no known problems. Allergies, Adverse Reactions, Alerts This patient has no known allergies or adverse reactions. Medications This patient has no known medications. Procedures This patient has no known procedures. Encounters Start End Encounter Admission Attending Care Care Encounter Source Date/Time Date/Time Type Type Clinicians Facility Department ID 2020-11-28 2020-11-28 Emergency MITZY Gunderson [id number] 11:52:00 14:05:00 Jozef Grigsby [id number] [place] [id number] [place] [id number] 2020-11-28 2020-11-28 Orders Doctor CHRISTENSEN [id number] 00:00:00 00:00:00 Only Unassigned, MARIAH [id number] [facility] [id number] 2020-08-06 2020-08-06 Emergency [facility] [id number] 21:07:00 22:02:00 Dread Grigsby [id number] [place] [id number] [place] [id number] 2020-08-06 2020-08-06 Orders Doctor FERMIN [id number] 00:00:00 00:00:00 Only Unassigned, MARIAH [id number] [facility] .[id number] 2019-12-27 2019-12-27 Telemedici Carmelo [facility] [id number] 08:34:05 08:49:05 ne Visit Rimma Grigsby [id number] [place] [id number] [facility] [id number] [facility] 134 Building 2019-11-28 2019-11-29 Hospital Vanessa Chen [facility] [id number] 07:13:02 16:05:00 Encounter Johanna French [id number] [place] [id number] [place] [id number] 2019-11-22 2019-11-22 Routine Carmelo [facility] [id number] 12:56:24 16:32:07 Rimma Grigsby [id number] Visit [place] [id number] [facility] [id number] [facility] 134 [facility] Results This patient has no known results.
[2020-11-30 19:52] LABS: Basophils % 0.1 % (0-1.3); Hematocrit 40.7 % (36.0-45.0); Lymphocytes % 11.3 % (15.3-44.8); MPV 9.3 fL (7.6-11.3); RBC Red Blood Cell Count 5.46 M/uL (3.86-4.86)
[2020-11-30] MEDS ORDERED: ACETAMINOPHEN 500 MG TAB ONE (20:11)
[2020-11-30] MEDS ORDERED: METHYLPREDNISOLONE 125 MG INJ ONE (20:11)
[2020-11-30] MEDS ORDERED: ONDANSETRON 4 MG/2 ML VIAL ONE (20:11)
[2020-11-30 20:22] LABS: ALT/SGPT 46 U/L (12-78); AST/SGOT 40 U/L (15-37); Albumin 3.1 g/dL (3.4-5.0); Alkaline Phosphatase 73 U/L (45-117); BUN Blood Urea Nitrogen 9 mg/dL (7-18); Bicarbonate 24 mmol/L (21-32); Bilirubin Direct 0.1 mg/dL (0-0.2); Bilirubin Total 0.4 mg/dL (0.2-1.0); Glucose Level 97 mg/dL (74-106); Lipase 158 U/L (73-393); Potassium 3.6 mmol/L (3.5-5.1); Protein, Total 7.7 g/dL (6.4-8.2); Sodium Level 140 mmol/L (136-145); Troponin (Emerg Dept Use Only) < 0.02 ng/mL (0.0-0.045)
--- NOTE | 2020-11-30 20:29 | RAD REPORT ---
EXAM DESCRIPTION: RAD - Chest Single View - 11/30/2020 7:58 pm CLINICAL HISTORY: DYSPNEA, COVID positive COMPARISON: Portable December 2017 TECHNIQUE: AP portable chest image was obtained 11/30/2020 7:58 pm . FINDINGS: Lung volumes are very low. Bilateral lung base opacification is present with right upper l obe focal opacification present. Lung parenchymal pattern is nonspecific but likely bilateral COVID p neumonia given the clinical history. Influenza pneumonia and organizing pneumonia can have this appea cedric. Heart and vasculature are normal. No measurable pleural effusion and no pneumothorax. No acute bony a bnormality seen. No acute aortic findings suspected. IMPRESSION: Limited portable study showing bilateral pneumonia findings most likely COVID-19 pneumon ia.
--- NOTE | 2020-11-30 20:31 | ER ---
Nurse's Notes [facility] Name: Zacarias Thomson Age: 25 yrs Sex: Female : 1995 Arrival Date: 11/30/2020 Time: 18:55 Bed 26 Private MD: Diagnosis: Coronavirus infection, unspecified;Viral pneumonia, unspecified;Hypoxia Presentation: 11/30 18:56 Chief complaint: EMS states: COVID+ 11/26/2020, S/S 11/22/2020, Covid Pneumonia 11/29/2020. ca1 C/O SOB today, O2 sats at 93-94% RA but goes down to 70% for a minute then goes back up. O2 2LPM via NC given sats at 95%. Coronavirus screen: Client denies travel out of the [place] in the last 14 days. Client reports previous positive COVID test result. Date of collection: November 26, 2020 Staff notified of need for isolation. Ebola Screen: Patient negative for fever greater than or equal to 101.5 degrees Fahrenheit, and additional compatible Ebola Virus Disease symptoms Patient denies exposure to infectious person. Patient denies travel to an Ebola-affected area in the 21 days before illness onset. No symptoms or risks identified at this time. Initial Sepsis Screen: Does the patient meet any 2 criteria? RR > 20 per min. Temp <36.0*C (96.8*F)) or > 38.3*C (100.9*F). HR > 90 bpm. Yes Does the patient have a suspected source of infection? Yes: Productive cough/pneumonia. Risk Assessment: Do you want to hurt yourself or someone else? Patient reports no desire to harm self or others. Onset of symptoms was November 30, 2020. 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 - Social history:: Smoking status: Patient/guardian denies using tobacco, the patient reports quitting approximately 2 years ago. Screenin:10 Abuse screen: Denies threats or abuse. Denies injuries from another. Nutritional iw screening: No deficits noted. Tuberculosis screening: Never had TB. Possible symptoms: recent fever, Risk factors: None. Fall Risk None identified. No fall in past 12 months (0 pts). No secondary diagnosis (0 pts). IV access (20 points). Ambulatory Aid- None/Bed Rest/Nurse Assist (0 pts). Gait- Normal/Bed Rest/Wheelchair (0 pts) Mental Status- Oriented to own ability (0 pts). Total Prabhakar Fall Scale indicates No Risk (0-24 pts). Assessment: 19:10 General: Appears ill, obese, Behavior is calm, cooperative, appropriate for age, iw Reports fever for feeling ill for fatigue for. Pain: Denies pain. Neuro: No deficits noted. Level of Consciousness is awake, alert, Oriented to person, place, time, situation, Appropriate for age. Cardiovascular: Reports shortness of breath, Denies chest pain, Patient's skin is warm and dry. Rhythm is sinus tachycardia. Respiratory: Reports shortness of breath cough that is labored breathing Airway is patent Respiratory effort is even, unlabored, Respiratory pattern is symmetrical, Breath sounds are diminished Denies pain with respiration, pain with cough, pain with movement. GI: Reports nausea. : No signs and/or symptoms were reported regarding the genitourinary system. 20:14 Reassessment: Lab reports Lactate 3.4. sf 20:33 Reassessment: D dimer 1108 candy from laboratory called, ED provider aware. rr5 Vital Signs: 18:56 BP 127 / 56; Pulse 123; Resp 22; Temp 102.9(O); Pulse Ox 93% on R/A; Weight 154.22 kg ca1 (R); Height 5 ft. 4 in. (162.56 cm) (R); Pain 8/10; 19:00 BP 128 / 76; Pulse 118; Resp 20; Pulse Ox 95% on 2 lpm NC; sf 19:45 BP 123 / 73; Pulse 102; Resp 20; Pulse Ox 99% ; sf 20:00 BP 96 / 62; Pulse 91; Resp 20; Pulse Ox 97% ; sf 20:30 BP 122 / 82; Pulse 102; Resp 18; Pulse Ox 97% ; sf 21:00 BP 105 / 52; Pulse 89; Resp 18; Pulse Ox 93% ; sf 21:14 Temp 101.4(O); sf 21:39 BP 101 / 56; Pulse 104; Resp 16; Pulse Ox 90% ; sf 22:00 BP 100 / 44; Pulse 81; Resp 18; Pulse Ox 93% ; sf 22:30 BP 99 / 50; Pulse 81; Resp 18; Pulse Ox 93% ; sf 23:00 Temp 99.2(O); sf 23:00 BP 96 / 50; Pulse 77; Resp 18; Pulse Ox 92% ; sf 18:56 Body Mass Index 58.36 (154.22 kg, 162.56 cm) ca1 Vitals: 20:30 Cardiac Rhythm Assessment Sinus rhythm. sf ED Course: 18:55 Patient arrived in ED. ca1 18:58 Winifred Olivares FNP-C is [facility]. kb 18:58 Wilfrid Hall MD is Attending Physician. kb 19:02 Triage completed. ca1 19:02 Arm band placed on right wrist. ca1 19:10 Patient has correct armband on for positive identification. Placed in gown. Bed in low iw position. Call light in reach. Side rails up X2. clinical research monitor on. Pulse ox on. NIBP on. Door closed. Noise minimized. Visitors limited. Verbal reassurance given. 19:15 Initial lab(s) drawn, by me, sent to lab. First set of blood cultures drawn by me. iw Inserted saline lock: 20 gauge in right antecubital area, using aseptic technique. Blood collected. 19:21 Dilia Snowden, RN is Primary Nurse. iw 19:50 CXR XRAY Sent. iw 19:58 CXR XRAY In Process Unspecified. EDMS 20:03 EKG done, by ED staff, reviewed by Winifred BOWEN. sf 20:29 Luis Alberto Crawford DO is Hospitalizing Provider. kb 21:26 CT Chest For PE Angio Sent. sf 22:54 Primary Nurse role handed off by Dilia Snowden RN sf 22:54 Aden Bentley, RN is Primary Nurse. sf 23:00 Repeat lab(s) drawn. by me, sent to lab. Second set of blood cultures drawn by me. sf 23:26 No provider procedures requiring assistance completed. Patient admitted, IV remains in sf place. Administered Medications: 19:53 Drug: Zofran (Ondansetron) 4 mg Route: IVP; Site: right antecubital; sf 21:09 Follow up: Response: No adverse reaction; Nausea is decreased sf 19:55 Drug: SOLU-Medrol 125 mg Route: IVP; Site: right antecubital; sf 21:10 Follow up: Response: No adverse reaction sf 20:04 Drug: Tylenol 1000 mg Route: PO; sf 21:09 Follow up: Response: No adverse reaction sf 21:00 Drug: NS 0.9% 1000 ml Route: IV; Rate: 1000 ml; Site: right antecubital; sf 22:54 Follow up: IV Status: Completed infusion; IV Intake: 1000ml sf 21:02 Drug: Lovenox 1 mg/kg {Note: 150 mg.} Route: Sub-Q; Site: left upper abdomen; sf 22:54 Follow up: Response: No adverse reaction sf Intake: 22:54 IV: 1000ml; Total: 1000ml. sf Outcome: 20:30 Decision to Hospitalize by Provider. kb 23:25 Admitted to Tele accompanied by tech, via wheelchair, room 407, with oxygen, Report sf called to PILI Asher 23:25 Condition: stable 23:25 Instructed on the need for admit. 23:51 Patient left the ED. sg Signatures: Dispatcher [employer] EDMS Winifred Olivares, RADHA-Shoshana GARCIA-Aden Goetz RN RN Dilia Snowden, PILI ALEJANDRE Arden Carmen RN RN rr5 Stefani Zaidi RN RN [facility] Aden Bentley, PILI RN sf Corrections: (The following items were deleted from the chart) 21:26 21:00 BP 105 / 52; Pulse 18bpm; Resp 89bpm; Pulse Ox 93%; sf sf
--- NOTE | 2020-11-30 20:31 | EDPHYS ---
Physician Documentation [facility] Name: Zacarias Thomson Age: 25 yrs Sex: Female : 1995 Arrival Date: 11/30/2020 Time: 18:55 Bed 26 Private MD: ED Physician Wilfrid Hall HPI: 11/30 20:25 This 25 yrs old Female presents to ER via EMS with complaints of Shortness Of kb Breath. 20:25 The patient has shortness of breath at rest. Onset: The symptoms/episode began/occurred kb 8 day(s) ago, and became worse today. Duration: The symptoms are continuous. The patient's shortness of breath is aggravated by coughing, exertion, light activity, talking, walking. Associated signs and symptoms: Pertinent positives: non-productive cough, fever. Severity of symptoms: At their worst the symptoms were moderate in the emergency department the symptoms have improved mildly. The patient has not experienced similar symptoms in the past. The patient has been recently seen by a physician:. Pt reports she started having flu like symptoms approx 8 days ago, then lost her taste a few days later so she went to [email or web address] for a COVID test. Came back positive. Went to [place] last night and was given medications. was told to come here if symptoms worsened. Today shortness of breath was so bad she couldn't stand without becoming winded. States she couldn't make it to the car so her mom called 911. EMS reports o2 sat 70 on room air.. 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 - Social history:: Smoking status: Patient/guardian denies using tobacco, the patient reports quitting approximately 2 years ago. ROS: 20:23 Cardiovascular: Negative for chest pain, palpitations, and edema, Abdomen/GI: Negative kb for abdominal pain, nausea, vomiting, diarrhea, and constipation, Back: Negative for injury and pain, MS/Extremity: Negative for injury and deformity, Skin: Negative for injury, rash, and discoloration, Neuro: Negative for headache, weakness, numbness, tingling, and seizure. 20:23 Constitutional: Positive for body aches, chills, fever, malaise. kb 20:23 Respiratory: Positive for cough, dyspnea on exertion, shortness of breath. Exam: 20:20 ECG was reviewed by the Attending Physician. kb 20:23 Constitutional: This is a well developed, well nourished patient who is awake, alert, kb and in no acute distress. Head/Face: Normocephalic, atraumatic. Cardiovascular: Regular rate and rhythm with a normal S1 and S2. No gallops, murmurs, or rubs. No pulse deficits. Skin: Warm, dry with normal turgor. Normal color with no rashes, no lesions, and no evidence of cellulitis. MS/ Extremity: Pulses equal, no cyanosis. Neurovascular intact. Full, normal range of motion. Neuro: Awake and alert, GCS 15, oriented to person, place, time, and situation. Cranial nerves II-XII grossly intact. Moves all extremities. Sensory grossly intact. Cerebellar exam normal. Normal gait. 20:23 Respiratory: mild respiratory distress is noted, Respirations: labored breathing, that is mild. Vital Signs: 18:56 BP 127 / 56; Pulse 123; Resp 22; Temp 102.9(O); Pulse Ox 93% on R/A; Weight 154.22 kg ca1 (R); Height 5 ft. 4 in. (162.56 cm) (R); Pain 8/10; 19:00 BP 128 / 76; Pulse 118; Resp 20; Pulse Ox 95% on 2 lpm NC; sf 19:45 BP 123 / 73; Pulse 102; Resp 20; Pulse Ox 99% ; sf 20:00 BP 96 / 62; Pulse 91; Resp 20; Pulse Ox 97% ; sf 20:30 BP 122 / 82; Pulse 102; Resp 18; Pulse Ox 97% ; sf 21:00 BP 105 / 52; Pulse 89; Resp 18; Pulse Ox 93% ; sf 21:14 Temp 101.4(O); sf 21:39 BP 101 / 56; Pulse 104; Resp 16; Pulse Ox 90% ; sf 22:00 BP 100 / 44; Pulse 81; Resp 18; Pulse Ox 93% ; sf 22:30 BP 99 / 50; Pulse 81; Resp 18; Pulse Ox 93% ; sf 23:00 Temp 99.2(O); sf 23:00 BP 96 / 50; Pulse 77; Resp 18; Pulse Ox 92% ; sf 18:56 Body Mass Index 58.36 (154.22 kg, 162.56 cm) ca1 MDM: 18:58 Patient medically screened. kb 20:11 Data reviewed: vital signs, nurses notes. kb 20:14 Data interpreted: Pulse oximetry: on 2L(s) per nasal canula, is 95 %. Interpretation: kb acceptable. 20:24 Counseling: I had a detailed discussion with the patient and/or guardian regarding: the kb historical points, exam findings, and any diagnostic results supporting the discharge/admit diagnosis, lab results, radiology results, the need for further work-up and treatment in the hospital. Physician consultation: Abdi BOWEN was contacted at 20:24, regarding admission, to the medical/surgical unit. patient's condition, and will see patient. 11/30 19:06 Order name: Blood Culture Adult (2) kb 11/30 19:06 Order name: BMP; Complete Time: 20:22 kb 11/30 19:06 Order name: C-Reactive Protein; Complete Time: 20:23 kb 11/30 19:06 Order name: CBC with Diff; Complete Time: 20:03 kb 11/30 19:06 Order name: D-Dimer; Complete Time: 20:36 kb 11/30 19:06 Order name: Ferritin; Complete Time: 20:23 kb 11/30 19:06 Order name: Lactate; Complete Time: 20:16 kb 11/30 19:06 Order name: LFT's; Complete Time: 20:22 kb 11/30 19:06 Order name: Lipase; Complete Time: 20:23 kb 11/30 19:06 Order name: Procalcitonin; Complete Time: 20:21 kb 11/30 19:06 Order name: PT-INR; Complete Time: 20:36 kb 11/30 19:06 Order name: Ptt, Activated; Complete Time: 20:36 kb 11/30 19:06 Order name: Troponin (emerg Dept Use Only); Complete Time: 20:23 kb 11/30 20:32 Order name: COVID-19 : Document "Date of Symptom Onset" if Symptomatic. kb 03 19:06 Order name: CXR XRAY; Complete Time: 20:30 kb 11/30 19:06 Order name: EKG; Complete Time: 19:08 kb 11/30 19:06 Order name: Cardiac monitoring; Complete Time: 19:27 kb 11/30 19:06 Order name: Droplet/Contact Precautions; Complete Time: 19:27 kb 11/30 19:06 Order name: EKG - Nurse/Tech; Complete Time: 20:13 kb 11/30 19:06 Order name: IV Start; Complete Time: 19:27 kb 11/30 19:06 Order name: Labs collected and sent; Complete Time: 19:27 kb 11/30 19:06 Order name: O2 Per Protocol; Complete Time: 19:27 kb 11/30 19:06 Order name: O2 Sat Monitoring; Complete Time: 19:27 kb 11/30 20:35 Order name: CT Chest For PE Angio; Complete Time: 21:46 kb 11/30 23:00 Order name: SARS-COV-2 RT PCR; Complete Time: 23:13 EDMS EC:20 Rate is 100 beats/min. Rhythm is regular. QRS [place] is Normal. MD interval is normal at kb 140 msec. QRS interval is normal at 84 msec. QT interval is normal at 324 msec. Administered Medications: 19:53 Drug: Zofran (Ondansetron) 4 mg Route: IVP; Site: right antecubital; sf 21:09 Follow up: Response: No adverse reaction; Nausea is decreased sf 19:55 Drug: SOLU-Medrol 125 mg Route: IVP; Site: right antecubital; sf 21:10 Follow up: Response: No adverse reaction sf 20:04 Drug: Tylenol 1000 mg Route: PO; sf 21:09 Follow up: Response: No adverse reaction sf 21:00 Drug: NS 0.9% 1000 ml Route: IV; Rate: 1000 ml; Site: right antecubital; sf 22:54 Follow up: IV Status: Completed infusion; IV Intake: 1000ml sf 21:02 Drug: Lovenox 1 mg/kg {Note: 150 mg.} Route: Sub-Q; Site: left upper abdomen; sf 22:54 Follow up: Response: No adverse reaction Disposition: 12/01 20:10 Co-signature as Attending Physician, Wilfrid Hall MD. [email or web address] Disposition: 11/30/20 20:30 Hospitalization ordered by Luis Alberto Crawford for Inpatient Admission. Preliminary diagnosis are Coronavirus infection, unspecified, Viral pneumonia, unspecified, Hypoxia. - Bed requested for Telemetry/MedSurg (Inpatient). - Status is Inpatient Admission. sg - Condition is Fair. - Problem is new. - Symptoms are unchanged. Signatures: Dispatcher [employer] EDMS Winifred Olivares, RADHA-C INTAKE MANAGER-Aden Goetz RN RN sg Garcia, Cindy, RN RN Stefani Zaidi RN RN [facility] Wilfrid Hall MD MD [facility] Aden Bentley RN RN Corrections: (The following items were deleted from the chart) 11/30 20:14 20:14 Data interpreted: Pulse oximetry: on room air is 70 %. Interpretation: hypoxia. kb Plan: O2 by [place] applied. kb 20:24 20:23 Constitutional: Negative for fever, chills, and weight loss, Cardiovascular: kb Negative for chest pain, palpitations, and edema, Abdomen/GI: Negative for abdominal pain, nausea, vomiting, diarrhea, and constipation, Back: Negative for injury and pain, kb 22:59 20:30 Hospitalization Ordered by Luis Alberto Crawford DO for Inpatient Admission. Preliminary cg diagnosis is Coronavirus infection, unspecified; Viral pneumonia, unspecified; Hypoxia. Bed requested for Telemetry/MedSurg (Inpatient). Status is Inpatient Admission. Condition is Fair. Problem is new. Symptoms are unchanged. kb 23:51 22:59 11/30/2020 20:30 Hospitalization Ordered by Luis Alberto Crawford DO for Inpatient sg Admission. Preliminary diagnosis is Coronavirus infection, unspecified; Viral pneumonia, unspecified; Hypoxia. Bed requested for Telemetry/MedSurg (Inpatient). Status is Inpatient Admission. Condition is Fair. Problem is new. Symptoms are unchanged. cg
[2020-11-30] MEDS ORDERED: ENOXAPARIN 60 MG/0.6 ML SQ ONE (21:17)
[2020-11-30] MEDS ORDERED: NA CHLORIDE 0.9% 1,000 ML ONE (21:17)
[2020-11-30] MEDS ORDERED: ENOXAPARIN 100 MG/ML SYR SQ ONE (21:17)
--- NOTE | 2020-11-30 22:48 | P.HP ---
Certification for Inpatient Patient admitted to: Inpatient With expected LOS: >2 Midnights Patient will require the following post-hospital care: None Practitioner: I am a practitioner with admitting privileges, knowledge of patient current condition, hospital course, and medical plan of care. Services: Services provided to patient in accordance with Admission requirements found in Title 42 Section 412.3 of the Code of Federal Regulations Patient History Date of Service: 11/30/20 Primary Care Provider: none Reason for admission: COVID-19 pneumonia History of Present Illness: 25-year-old otherwise healthy female presents emergency department for shortness of breath. Patient was diagnosed with magana virus on 11/28/2020 has had progressive shortness of breath since then. Patient was found to be setting in the 70s at home on room air, requiring nasal cannula at 4 L in the emergency department. Labs significant for elevated D-dimer 1108 C-reactive protein 33.[address] PE protocol pending. As patient having oxygen requirement ED provider wishes to admit for further evaluation and management. 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 moist/pink Neck: Supple, 2+ carotid pulse no bruit, No LAD Respiratory: Normal air movement, Diminished (Bilaterally) Cardiovascular: Regular rate/rhythm, Normal S1 S2 Gastrointestinal: Normal bowel sounds, No tenderness Musculoskeletal: No tenderness Integumentary: No rashes Neurological: Normal speech, Normal strength at 5/5 x4 extr, Normal tone, Normal affect - Studies Laboratory Data (last 24 hrs) 11/30/20 19:15: PT 11.5, INR 1.00, APTT 23.5 L 11/30/20 19:15: WBC 9.10, Hgb 13.7, Hct 40.7, Plt Count 101 L 11/30/20 19:15: Sodium 140, Potassium 3.6, BUN 9, Creatinine 0.90, Glucose 97, Total Bilirubin 0.4, AST 40 H, ALT 46, Alkaline Phosphatase 73, Lipase 158 Assessment and Plan - Plan Assessment Hypoxia secondary to COVID-19 pneumonia Plan Hypoxia secondary to COVID-19 pneumonia: Trend CRP, throat levels, continue with IV steroids, oral supplementation. Daily room air saturations on room air saturations for home oxygen. The patient continues to do well could possibly go home with home oxygen tomorrow this can be obtained. DVT prophylaxis Lovenox 40 mg subcutaneous once daily. Pulmonology consult in place. Discharge Plan: Home Plan to discharge in: 24 Hours - Advance Directives Does patient have a Living Will: No Does patient have a Durable POA for Healthcare: No - Code Status/Comfort Care Code Status Assessed: Yes (Full code) Critical Care: No Time Spent Managing Pts Care (In Minutes): 55
[2020-12-01 00:48] VITALS: BMI 57.5
[2020-12-01 05:04] LABS: Absolute Lymphocytes (CBC) 1.2 K/uL (0.7-4.9); Basophils % 0.1 % (0-1.3); Hematocrit 40.3 % (36.0-45.0); Lymphocytes % 21.3 % (15.3-44.8); MPV 10.1 fL (7.6-11.3)
[2020-12-01 05:50] LABS: ALT/SGPT 42 U/L (12-78); AST/SGOT 29 U/L (15-37); Albumin 2.8 g/dL (3.4-5.0); Alkaline Phosphatase 66 U/L (45-117); BUN Blood Urea Nitrogen 9 mg/dL (7-18); Bicarbonate 25 mmol/L (21-32); Bilirubin Total 0.3 mg/dL (0.2-1.0); Glucose Level 163 mg/dL (74-106); HDL Cholesterol 34 mg/dL (40-60); LDL Cholesterol, Calculated 80 (<130); Magnesium 2.1 mg/dL (1.8-2.4); Sodium Level 142 mmol/L (136-145); Thyroid Stimulating Hormone 0.849 uIU/mL (0.360-3.740)
[2020-12-01] MEDS: VITAMIN D 1000 UNIT TAB PO SCH (08:01)
[2020-12-01] MEDS: ASCORBIC ACID 500 MG TABLET PO SCH ×4 (08:02→21:00)
[2020-12-01] MEDS: ASPIRIN EC 81 MG TAB PO SCH (08:02)
[2020-12-01] MEDS: THIAMINE HCL 100 MG TABLET PO SCH (08:02)
[2020-12-01] MEDS: ZINC SULFATE 220 MG CAP PO SCH (08:03)
[2020-12-01] MEDS ORDERED: ENOXAPARIN 40 MG/0.4 ML SQ SCH (09:00)
[2020-12-01] MEDS ORDERED: METHYLPREDNISOLONE 40 MG INJ IV SCH (09:00)
[2020-12-01] MEDS: ONDANSETRON 4 MG/2 ML VIAL IV PRN (12:03)
[2020-12-01] MEDS ORDERED: Remdesivir 200 MG in NA CHLORIDE 0.9% 250 ML IV ONE (12:44)
--- NOTE | 2020-12-01 12:52 | P.PN ---
Subjective Date of Service: 12/01/20 Primary Care Provider: none Chief Complaint: COVID-19 pneumonia Subjective: Other (Slow improvment noted. Still with fatigue, some cough.) Physical Examination - Vital Signs Temperature: 97.8 F Blood Pressure: 107/59 Pulse: 79 Respirations: 18 Pulse Ox (%): 92 - Studies Laboratory Data (last 24 hrs) 11/30/20 19:15: PT 11.5, INR 1.00, APTT 23.5 L 11/30/20 19:15: WBC 9.10, Hgb 13.7, Hct 40.7, Plt Count 101 L 11/30/20 19:15: Sodium 140, Potassium 3.6, BUN 9, Creatinine 0.90, Glucose 97, Total Bilirubin 0.4, AST 40 H, ALT 46, Alkaline Phosphatase 73, Lipase 158 Assessment & Plan Discharge Plan: Home Plan to discharge in: 48 Hours Physician Review Additional Text: Initial chief complaint: Shortness of breath, positive COVID 19 Physical exam: Patient alert, cooperative. Some fatigue noted. Patient requiring more oxygen from this morning. At 4 L per nasal cannula. Heart: Regular rate and rhythm Lungs: More oxygen requirement noted at 4 L. no significant distress noted. Nurses report some tachypnea with ambulation. GI: Soft nontender nondistended Extremities: Good range of motion. No focal deficits. Impression: Dyspnea with hypoxia secondary to bilateral COVID-19 pneumonia Thrombocytopenia likely related to above Hyperglycemia suspect pre diabetes Obesity, BMI 57.6 Plan: Dyspnea with hypoxia secondary to bilateral COVID-19 pneumonia: Plan was to discharge patient today but patient required more oxygen. Previously on 2 L per nasal cannula. Now up to 4 L. Still short of breath with exertion. Will keep the patient in the hospital until her condition improves. Continue with IV supplementation, ivermectin and oral supplementation. Encourage incentive spirometer. Encourage protein. Encourage ambulation. Will provide medication for cough, congestion. Continue DVT prophylaxis-Lovenox. May need to hold if platelet count less than 100. Anticipate improvement over the next 24-48 hr. Anticipate discharge once able the tolerate 4 L per less. Patient will require oxygen at discharge. Will discuss with health social work professor to help arrange. I will turn the service over to the hospitalist team tomorrow. I will go plan of care with him. Obesity, BMI 57.6: Address lifestyle modification education. Thrombocytopenia likely related to above: Continue to monitor closely. Hold Lovenox if less than 100. Hyperglycemia suspect pre diabetes: Will check A1c tomorrow. Will monitor this closely. Time Spent Managing Pts Care (In Minutes): 55
[2020-12-01] MEDS: METHYLPREDNISOLONE 40 MG INJ IV SCH ×2 (14:15→21:05)
[2020-12-01] MEDS ORDERED: IVERMECTIN 3 MG TABLET PO SCH (15:00)
[2020-12-01] MEDS: ENOXAPARIN 40 MG/0.4 ML SQ SCH (16:33)
[2020-12-01] MEDS: BENZONATATE 100 MG CAP PO PRN (16:40)
[2020-12-01] MEDS: ACETAMINOPHEN 500 MG TAB PO PRN (21:02)
[2020-12-01] MEDS: HYDROCODONE/CHLORPHEN 5 ML/OSYR PO PRN (21:36)
[2020-12-01] MEDS: MELATONIN 5 MG TABLET PO PRN (22:48)
[2020-12-02] MEDS: BENZONATATE 100 MG CAP PO PRN ×2 (03:00→10:43)
[2020-12-02 04:18] LABS: Absolute Lymphocytes (CBC) 1.3 K/uL (0.7-4.9); Basophils % 0.1 % (0-1.3); Hematocrit 38.6 % (36.0-45.0); Lymphocytes % 14.2 % (15.3-44.8); MPV 9.3 fL (7.6-11.3); RBC Red Blood Cell Count 5.17 M/uL (3.86-4.86)
[2020-12-02] MEDS: ACETAMINOPHEN 500 MG TAB PO PRN ×3 (04:30→21:21)
[2020-12-02 04:50] LABS: ALT/SGPT 34 U/L (12-78); AST/SGOT 22 U/L (15-37); Albumin 2.8 g/dL (3.4-5.0); Alkaline Phosphatase 60 U/L (45-117); BUN Blood Urea Nitrogen 11 mg/dL (7-18); Bicarbonate 28 mmol/L (21-32); Bilirubin Total 0.4 mg/dL (0.2-1.0); Ferritin 85.4 ng/mL (8-388); Glucose Level 128 mg/dL (74-106); Magnesium 2.5 mg/dL (1.8-2.4); Potassium 4.1 mmol/L (3.5-5.1); Protein, Total 7.4 g/dL (6.4-8.2); Sodium Level 142 mmol/L (136-145)
[2020-12-02] MEDS: ZINC SULFATE 220 MG CAP PO SCH (07:26)
[2020-12-02] MEDS: ASPIRIN EC 81 MG TAB PO SCH (07:26)
[2020-12-02] MEDS: THIAMINE HCL 100 MG TABLET PO SCH (07:26)
[2020-12-02] MEDS: METHYLPREDNISOLONE 40 MG INJ IV SCH ×3 (07:26→21:19)
[2020-12-02] MEDS: VITAMIN D 1000 UNIT TAB PO SCH (07:26)
[2020-12-02] MEDS: ASCORBIC ACID 500 MG TABLET PO SCH ×4 (07:26→21:19)
[2020-12-02] MEDS: HYDROCODONE/CHLORPHEN 5 ML/OSYR PO PRN ×2 (07:38→21:18)
[2020-12-02] MEDS: ONDANSETRON 4 MG/2 ML VIAL IV PRN (08:50)
[2020-12-02] MEDS: ENOXAPARIN 40 MG/0.4 ML SQ SCH (16:59)
--- NOTE | 2020-12-02 18:15 | RAD REPORT ---
EXAM DESCRIPTION: Chest For Pe Angio CLINICAL HISTORY: 25 years Female DYSPNEA COMPARISON: 11/29/2020. TECHNIQUE: Contiguous axial images obtained through the chest during the infusion of IV contrast. Re formatted images obtained. MIP reformatted images obtained. This exam was performed according to our department optimization program which includes automated exp osure control, adjustment of the mA and/or kv according to patient size and/or use of iterative recon struction technique. FINDINGS: The visualized upper abdominal organs appear unremarkable. No pericardial effusion. The mediastinum appears unremarkable. No evidence for thoracic aortic dissection. No pulmonary emboli are identified. There are bilateral patchy areas of consolidation which have increased in severity compared to the pr evious study. The findings are consistent with multifocal pneumonia. Changes from covid pneumonia not completely excluded. No pleural effusions. No pneumothorax. IMPRESSION: No pulmonary emboli are identified. There are bilateral patchy areas of consolidation which have increased in severity compared to the pr evious study. The findings are consistent with multifocal pneumonia. Changes from covid pneumonia not completely excluded. Electronically signed by: Blake Buck MD 11/30/2020 10:18 PM [employer] Due to temporary technical issues with the PACS/Fluency reporting system, reports are being signed by the in house radiologists without review as a courtesy to insure prompt reporting. The interpreting radiologist is fully responsible for the content of the report.
[2020-12-03] MEDS: BENZONATATE 100 MG CAP PO PRN ×2 (04:23→20:12)
[2020-12-03 05:27] LABS: C-Reactive Protein 13.7 mg/L (<3.00); Ferritin 75.3 ng/mL (8-388)
[2020-12-03] MEDS: ZINC SULFATE 220 MG CAP PO SCH (08:37)
[2020-12-03] MEDS: ASPIRIN EC 81 MG TAB PO SCH (08:37)
[2020-12-03] MEDS: VITAMIN D 1000 UNIT TAB PO SCH (08:37)
[2020-12-03] MEDS: ACETAMINOPHEN 500 MG TAB PO PRN ×3 (08:38→18:04)
[2020-12-03] MEDS: THIAMINE HCL 100 MG TABLET PO SCH (08:38)
[2020-12-03] MEDS: ASCORBIC ACID 500 MG TABLET PO SCH ×4 (08:38→20:12)
[2020-12-03] MEDS: METHYLPREDNISOLONE 40 MG INJ IV SCH ×3 (09:00→20:12)
--- NOTE | 2020-12-03 09:29 | P.PN ---
Subjective Date of Service: 12/02/20 Subjective: No new changes, No C/O voiced, Improving Patient's respiratory status is worsening. Patient is tachypneic. Patient with persistent coughing & congestion. Review of Systems 10-point ROS is otherwise unremarkable Physical Examination - Vital Signs Temperature: 97.5 F Blood Pressure: 141/74 Pulse: 65 Respirations: 30 Pulse Ox (%): 89 - Physical Exam General: Alert, In no apparent distress, Oriented x3 Respiratory: Diminished, Expiratory wheezes Cardiovascular: Regular rate/rhythm, Normal S1 S2, No murmurs Gastrointestinal: Normal bowel sounds, Soft and benign, Non-distended, No tenderness Musculoskeletal: No clubbing, No swelling, No tenderness Neurological: Normal strength at 5/5 x4 extr, Sensation intact, Cranial nerves 3-12 intact - Studies Medications List Reviewed: Yes Assessment & Plan - Problems (Diagnosis) (1) Pneumonia due to COVID-19 virus Current Visit: Yes Status: Acute - Plan 1. Continue with IV steroids 2. Albuterol inhaler therapy 3. Repeat chest x-ray is symptoms are progressively worsening 4. BiPAP support 5. Pulmonary consultation appreciated 6. Repeat labs including ferritin, CRP 7. GI and DVT prophylaxis Discharge Plan: Home Plan to discharge in: Greater than 2 days - Advance Directives Does patient have a Living Will: No Does patient have a Durable POA for Healthcare: No - Code Status/Comfort Care Code Status Assessed: Yes Code Status: Full Code Critical Care: No Time Spent Managing PTS Care (In Minutes): 35
--- NOTE | 2020-12-03 09:30 | P.PN ---
Subjective Date of Service: 12/03/20 Patient's respiratory status is still not improved. Still hypoxic. Oxygenation has not improved. Review of Systems 10-point ROS is otherwise unremarkable Physical Examination - Vital Signs Temperature: 97.5 F Blood Pressure: 141/74 Pulse: 65 Respirations: 30 Pulse Ox (%): 89 - Physical Exam General: Alert, In no apparent distress, Oriented x3 Respiratory: Diminished, Expiratory wheezes Cardiovascular: Regular rate/rhythm, Normal S1 S2, No murmurs Gastrointestinal: Normal bowel sounds, Soft and benign, Non-distended, No tenderness Musculoskeletal: No clubbing, No swelling, No tenderness Neurological: Sensation intact, Cranial nerves 3-12 intact - Studies Medications List Reviewed: Yes Assessment & Plan - Problems (Diagnosis) (1) Pneumonia due to COVID-19 virus Current Visit: Yes Status: Acute - Plan Continue with plan of care as mentioned below 1. Continue with IV steroids 2. Albuterol inhaler therapy 3. Repeat chest x-ray is symptoms are progressively worsening 4. BiPAP support 5. Pulmonary consultation appreciated 6. Repeat labs including ferritin, CRP 7. GI and DVT prophylaxis - Advance Directives Does patient have a Living Will: No Does patient have a Durable POA for Healthcare: No - Code Status/Comfort Care Code Status: Full Code Critical Care: No Time Spent Managing PTS Care (In Minutes): 30
[2020-12-03] MEDS: HYDROCODONE/CHLORPHEN 5 ML/OSYR PO PRN (13:00)
[2020-12-03] MEDS: ENOXAPARIN 40 MG/0.4 ML SQ SCH (18:04)
[2020-12-03] MEDS: MELATONIN 5 MG TABLET PO PRN (20:12)
[2020-12-03] MEDS ORDERED: NAPROXEN 250 MG TAB PO ONE (20:15)
[2020-12-04 04:24] LABS: Absolute Lymphocytes (CBC) 1.4 K/uL (0.7-4.9); Basophils % 0.1 % (0-1.3); Hematocrit 37.9 % (36.0-45.0); Lymphocytes % 18.3 % (15.3-44.8); MPV 8.8 fL (7.6-11.3); RBC Red Blood Cell Count 5.06 M/uL (3.86-4.86)
[2020-12-04 04:42] LABS: BUN Blood Urea Nitrogen 22 mg/dL (7-18); Bicarbonate 29 mmol/L (21-32); Ferritin 61.2 ng/mL (8-388); Glucose Level 135 mg/dL (74-106); Potassium 4.4 mmol/L (3.5-5.1); Sodium Level 143 mmol/L (136-145)
[2020-12-04] MEDS: HYDROCODONE/CHLORPHEN 5 ML/OSYR PO PRN ×2 (05:24→19:42)
[2020-12-04 05:25] LABS: Blood Morphology Comment NOT SEEN (NOT SEEN); Platelet Estimate ADEQ
[2020-12-04] MEDS ORDERED: NAPROXEN 250 MG TAB PO ONE (06:00)
[2020-12-04] MEDS: THIAMINE HCL 100 MG TABLET PO SCH (08:08)
[2020-12-04] MEDS: ASCORBIC ACID 500 MG TABLET PO SCH ×4 (08:09→19:42)
[2020-12-04] MEDS: ASPIRIN EC 81 MG TAB PO SCH (08:09)
[2020-12-04] MEDS: VITAMIN D 1000 UNIT TAB PO SCH (08:09)
[2020-12-04] MEDS: ZINC SULFATE 220 MG CAP PO SCH (08:12)
[2020-12-04] MEDS: ACETAMINOPHEN 500 MG TAB PO PRN (09:29)
[2020-12-04] MEDS: METHYLPREDNISOLONE 40 MG INJ IV SCH ×3 (10:02→19:42)
[2020-12-04] MEDS: ENOXAPARIN 40 MG/0.4 ML SQ SCH (16:14)
[2020-12-04] MEDS: MELATONIN 5 MG TABLET PO PRN (19:42)
[2020-12-05 05:24] LABS: Absolute Lymphocytes (CBC) 1.9 K/uL (0.7-4.9); Basophils % 0.4 % (0-1.3); MPV 8.9 fL (7.6-11.3); RBC Red Blood Cell Count 5.16 M/uL (3.86-4.86)
[2020-12-05 05:40] LABS: BUN Blood Urea Nitrogen 18 mg/dL (7-18); Bicarbonate 26 mmol/L (21-32); Glucose Level 124 mg/dL (74-106); Potassium 4.6 mmol/L (3.5-5.1); Sodium Level 141 mmol/L (136-145)
[2020-12-05] MEDS: HYDROCODONE/CHLORPHEN 5 ML/OSYR PO PRN (05:45)
[2020-12-05] MEDS: ONDANSETRON 4 MG/2 ML VIAL IV PRN (06:00)
[2020-12-05] MEDS: ACETAMINOPHEN 500 MG TAB PO PRN ×3 (06:01→23:35)
--- NOTE | 2020-12-05 07:58 | P.PN ---
Date of Service: 12/04/20 Subjective Patient states whenever she moves around she gets more short of breath. Her has not been any significant changes or improvement in her clinical condition. She still feels like she is doing very poorly. I did try to encourage her entire that she was only on 10 L of oxygen. However, she is still very nervous about her clinical status and wants to go home and be with her child. Her child was recently tested positive for COVID-19. Review of Systems 10-point ROS is otherwise unremarkable Physical Examination - Vital Signs reviewed - Physical Exam General: Alert, In no apparent distress, Oriented x3 Respiratory: Diminished, Expiratory wheezes Cardiovascular: Regular rate/rhythm, Normal S1 S2, No murmurs Gastrointestinal: Normal bowel sounds, Soft and benign, Non-distended, No tenderness Musculoskeletal: No clubbing, No swelling, No tenderness Assessment & Plan - Problems (Diagnosis) (1) Pneumonia due to COVID-19 virus Current Visit: Yes Status: Acute - Plan Continue with plan of care as mentioned below 1. Continue with IV steroids 2. Albuterol inhaler therapy; cough suppressants as needed 3. Out of bed and ambulate as tolerated and she needs to try to get out of bed and into a chair as much as possible 4. BiPAP support during sleep alternating with wall oxygen 5. Pulmonary consultation appreciated 6. Repeat labs including ferritin, CRP 7. GI and DVT prophylaxis - Advance Directives Does patient have a Living Will: No Does patient have a Durable POA for Healthcare: No - Code Status/Comfort Care Code Status: Full Code Critical Care: No Time Spent Managing PTS Care (In Minutes): 30
--- NOTE | 2020-12-05 08:01 | P.PN ---
Date of Service: 12/05/20 Subjective Patient continues to gradually improve. She still is getting short of breath on ambulating. I have encouraged her to get out of bed and walk in place as much as possible. Review of Systems 10-point ROS is otherwise unremarkable Physical Examination - Vital Signs reviewed - Physical Exam General: Alert, In no apparent distress, Oriented x3; patient morbidly obese Respiratory: Diminished, Expiratory wheezes Cardiovascular: Regular rate/rhythm, Normal S1 S2, No murmurs Gastrointestinal: Normal bowel sounds, Soft and benign, Non-distended, No tenderness Musculoskeletal: No clubbing, No swelling, No tenderness Assessment & Plan - Problems (Diagnosis) (1) Pneumonia due to COVID-19 virus Current Visit: Yes Status: Acute - Plan No change in the plan of care as will continue with current treatment plan as mentioned below: 1. Continue with IV steroids along with neb treatments 2. Albuterol inhaler therapy; cough suppressants as needed 3. Out of bed and ambulate as tolerated and she needs to try to get out of bed and into a chair as much as possible 4. BiPAP support during sleep alternating with wall oxygen 5. Pulmonary consultation appreciated 6. Repeat labs including ferritin, CRP 7. GI and DVT prophylaxis - Advance Directives Does patient have a Living Will: No Does patient have a Durable POA for Healthcare: No - Code Status/Comfort Care Code Status: Full Code Critical Care: No Time Spent Managing PTS Care (In Minutes): 30
[2020-12-05] MEDS: ASCORBIC ACID 500 MG TABLET PO SCH ×4 (08:24→20:28)
[2020-12-05] MEDS: ZINC SULFATE 220 MG CAP PO SCH (08:25)
[2020-12-05] MEDS: VITAMIN D 1000 UNIT TAB PO SCH (08:25)
[2020-12-05] MEDS: THIAMINE HCL 100 MG TABLET PO SCH (08:25)
[2020-12-05] MEDS: ASPIRIN EC 81 MG TAB PO SCH (08:25)
[2020-12-05] MEDS: METHYLPREDNISOLONE 40 MG INJ IV SCH (08:26)
[2020-12-05] MEDS: METHYLPREDNISOLONE 125 MG INJ IV SCH ×2 (13:01→20:27)
[2020-12-05] MEDS: BENZONATATE 100 MG CAP PO PRN (16:03)
[2020-12-05] MEDS: ENOXAPARIN 40 MG/0.4 ML SQ SCH (16:04)
[2020-12-05] MEDS: BENZONATATE 100 MG CAP PO SCH (20:28)
[2020-12-06 07:03] LABS: Absolute Lymphocytes (CBC) 2.6 K/uL (0.7-4.9); Basophils % 0.5 % (0-1.3); Hematocrit 38.8 % (36.0-45.0); Lymphocytes % 18.5 % (15.3-44.8); MPV 8.4 fL (7.6-11.3); RBC Red Blood Cell Count 5.26 M/uL (3.86-4.86)
[2020-12-06 07:58] LABS: BUN Blood Urea Nitrogen 21 mg/dL (7-18); Bicarbonate 28 mmol/L (21-32); Glucose Level 122 mg/dL (74-106); Potassium 4.7 mmol/L (3.5-5.1); Sodium Level 140 mmol/L (136-145)
[2020-12-06] MEDS: ONDANSETRON 4 MG/2 ML VIAL IV PRN (08:02)
[2020-12-06] MEDS: VITAMIN D 1000 UNIT TAB PO SCH (08:26)
[2020-12-06] MEDS: ASPIRIN EC 81 MG TAB PO SCH (08:26)
[2020-12-06] MEDS: BENZONATATE 100 MG CAP PO SCH ×3 (08:26→20:13)
[2020-12-06] MEDS: ZINC SULFATE 220 MG CAP PO SCH (08:27)
[2020-12-06] MEDS: THIAMINE HCL 100 MG TABLET PO SCH (08:27)
[2020-12-06] MEDS: ASCORBIC ACID 500 MG TABLET PO SCH ×4 (08:27→20:13)
[2020-12-06] MEDS: METHYLPREDNISOLONE 125 MG INJ IV SCH ×3 (08:27→20:13)
[2020-12-06 09:24] LABS: Blood Morphology Comment NOT SEEN (NOT SEEN); Platelet Estimate ADEQ; White Blood Cell Scan OK (OK)
[2020-12-06] MEDS: ACETAMINOPHEN 500 MG TAB PO PRN ×2 (10:08→20:13)
[2020-12-07] MEDS: VITAMIN D 1000 UNIT TAB PO SCH (08:24)
[2020-12-07] MEDS: BENZONATATE 100 MG CAP PO SCH ×3 (08:25→21:00)
[2020-12-07] MEDS: ZINC SULFATE 220 MG CAP PO SCH (08:25)
[2020-12-07] MEDS: THIAMINE HCL 100 MG TABLET PO SCH (08:25)
[2020-12-07] MEDS: ASCORBIC ACID 500 MG TABLET PO SCH ×4 (08:25→21:00)
[2020-12-07] MEDS: ASPIRIN EC 81 MG TAB PO SCH (08:25)
[2020-12-07] MEDS: METHYLPREDNISOLONE 125 MG INJ IV SCH ×3 (08:25→21:00)
--- NOTE | 2020-12-07 11:35 | P.PN ---
Date of Service: 12/07/20 Subjective Oxygenation continues to improve quickly. O2 sats down to 4 L. Anticipate discharge home over the next 24 hr. Review of Systems 10-point ROS is otherwise unremarkable Physical Examination - Vital Signs reviewed - Physical Exam General: Alert, In no apparent distress, Oriented x3; patient morbidly obese Respiratory: Diminished, Expiratory wheezes Cardiovascular: Regular rate/rhythm, Normal S1 S2, No murmurs Gastrointestinal: Normal bowel sounds, Soft and benign, Non-distended, No tenderness Musculoskeletal: No clubbing, No swelling, No tenderness Assessment & Plan - Problems (Diagnosis) (1) Pneumonia due to COVID-19 virus Current Visit: Yes Status: Acute (2) Hypoxemia Current Visit: Yes Status: Acute - Plan No change in the plan of care as will continue with current treatment plan as mentioned below: 1. Continue with IV steroids along with neb treatments; can wean down the steroids 2. Albuterol inhaler therapy; cough suppressants as needed 3. Encourage ambulation 4. Arrange for home oxygen; anticipate discharge over the next 24-48 hr 5. Pulmonary consultation appreciated 6. Repeat labs including ferritin, CRP 7. GI and DVT prophylaxis
--- NOTE | 2020-12-07 11:35 | P.PN ---
Date of Service: 12/06/20 Subjective Patient improving gradually. Down the 6-7 L. respiratory status is stable. Patient continues to gradually improve. Review of Systems 10-point ROS is otherwise unremarkable Physical Examination - Vital Signs reviewed - Physical Exam General: Alert, In no apparent distress, Oriented x3; patient morbidly obese Respiratory: Diminished, Expiratory wheezes Cardiovascular: Regular rate/rhythm, Normal S1 S2, No murmurs Gastrointestinal: Normal bowel sounds, Soft and benign, Non-distended, No tenderness Musculoskeletal: No clubbing, No swelling, No tenderness Assessment & Plan - Problems (Diagnosis) (1) Pneumonia due to COVID-19 virus Current Visit: Yes Status: Acute (2) Hypoxemia Current Visit: Yes Status: Acute - Plan No change in the plan of care as will continue with current treatment plan as mentioned below: 1. Continue with IV steroids along with neb treatments; can wean down the steroids 2. Albuterol inhaler therapy; cough suppressants as needed 3. Encourage ambulation 4. Arrange for home oxygen; anticipate discharge over the next 24-48 hr 5. Pulmonary consultation appreciated 6. Repeat labs including ferritin, CRP 7. GI and DVT prophylaxis
[2020-12-07] MEDS: ENOXAPARIN 40 MG/0.4 ML SQ SCH (17:14)
[2020-12-08] MEDS: BENZONATATE 100 MG CAP PO SCH ×2 (08:45→13:24)
[2020-12-08] MEDS: ZINC SULFATE 220 MG CAP PO SCH (08:46)
[2020-12-08] MEDS: METHYLPREDNISOLONE 125 MG INJ IV SCH ×2 (08:46→13:24)
[2020-12-08] MEDS: ASCORBIC ACID 500 MG TABLET PO SCH ×2 (08:46→12:09)
[2020-12-08] MEDS: ASPIRIN EC 81 MG TAB PO SCH (08:46)
[2020-12-08] MEDS: THIAMINE HCL 100 MG TABLET PO SCH (08:46)
[2020-12-08] MEDS: VITAMIN D 1000 UNIT TAB PO SCH (08:46)
[2020-12-08 12:29] VITALS: O2SAT 93
[2020-12-08 13:06] VITALS: BP 108/67; TEMP 98.3
--- NOTE | 2020-12-10 05:27 | P.DS ---
Discharge Date: 12/08/20 Primary Care Provider: blu Disposition: ROUTINE DISCHARGE Discharge Condition: GOOD Reason for Admission: COVID-19 pneumonia Consultations: Pulmonary - Problems (1) Pneumonia due to COVID-19 virus Status: Acute Brief History of Present Illness: Patient is a 25-year-old female who came into the hospital with difficulty breathing. She was found of have COVID-19 Pneumonia. Patient was admitted to the hospital for further evaluation. Hospital Course: Patient has done well during hospital stay. Hypoxemia has improved. Plan to discharge patient home with outpatient followup. Vital Signs/Physical Exam: Temp Pulse Resp BP Pulse Ox 98.3 F 70 20 108/67 93 12/08/20 12:00 12/08/20 12:00 12/08/20 12:00 12/08/20 12:00 12/08/20 12:00 General: Alert, In no apparent distress, Oriented x3 Laboratory Data at Discharge: WBC 13.80 K/uL (4.3-10.9) H D 12/06/20 06:45 Hgb 13.1 g/dL (12.0-15.0) 12/06/20 06:45 Hct 38.8 % (36.0-45.0) 12/06/20 06:45 Plt Count 232 K/uL (152-406) 12/06/20 06:45 PT 11.5 SECONDS (9.5-12.5) 11/30/20 19:15 INR 1.00 11/30/20 19:15 APTT 23.5 SECONDS (24.3-36.9) L 11/30/20 19:15 Sodium 140 mmol/L (136-145) 12/06/20 06:45 Potassium 4.7 mmol/L (3.5-5.1) 12/06/20 06:45 BUN 21 mg/dL (7-18) H 12/06/20 06:45 Creatinine 0.57 mg/dL (0.55-1.3) 12/06/20 06:45 Glucose 122 mg/dL (74-106) H 12/06/20 06:45 Magnesium 2.5 mg/dL (1.8-2.4) H 12/02/20 03:27 Total Bilirubin 0.4 mg/dL (0.2-1.0) 12/02/20 03:27 AST 22 U/L (15-37) 12/02/20 03:27 ALT 34 U/L (12-78) 12/02/20 03:27 Alkaline Phosphatase 60 U/L (45-117) 12/02/20 03:27 Triglycerides 104 mg/dL (<150) 12/01/20 04:05 Cholesterol 135 mg/dL (<200) 12/01/20 04:05 HDL Cholesterol 34 mg/dL (40-60) L 12/01/20 04:05 Cholesterol/HDL Ratio 3.97 12/01/20 04:05 Lipase 158 U/L (73-393) 11/30/20 19:15 Home Medications: RX: Famotidine 20 mg PO Q12HR 12/01/20 RX: Ascorbic Acid [Vitamin C*] 500 mg PO QID #120 tablet 12/07/20 RX: Benzonatate [Tessalon Perle*] 200 mg PO TID #90 cap 12/07/20 RX: Cholecalciferol (Vitamin D3) [Vitamin D 1000 Iu Tab*] 4,000 unit PO DAILY #30 tab 12/07/20 RX: Hydrocodone/Chlorphen Polis [Tussionex Oral Susp*] 5 ml PO BID PRN #100 ml 12/07/20 RX: Melatonin 5 mg PO BEDTIME PRN PRN #30 tablet 12/07/20 RX: Thiamine HCl [Vitamin B-1*] 200 mg PO DAILY #30 tablet 12/07/20 RX: Zinc Sulfate [Zinc Sulfate*] 220 mg PO DAILY #30 cap 12/07/20 RX: predniSONE [Prednisone*] 20 mg PO BID #32 tab 12/07/20 RX: Albuterol Neb [Proventil 0.083% Neb Soln] 2.5 mg NEB Q6H PRN #60 amp 12/08/20 RX: Nebulizer Accessories [Aeroneb Go] 1 each MC DAILY #1 each 12/08/20 RX: Nebulizer [Aeroneb Go Nebulizer] 1 each MC DAILY #1 each 12/08/20 New Medications: RX: Nebulizer Accessories [Aeroneb Go] 1 each MC DAILY #1 each RX: Nebulizer [Aeroneb Go Nebulizer] 1 each MC DAILY #1 each RX: Melatonin 5 mg PO BEDTIME PRN PRN #30 tablet PRN Reason: Insomnia RX: predniSONE [Prednisone*] 20 mg PO BID #32 tab RX: Albuterol Neb [Proventil 0.083% Neb Soln] 2.5 mg NEB Q6H PRN #60 amp PRN Reason: dyspnea/cough/wheezing RX: Benzonatate [Tessalon Perle*] 200 mg PO TID #90 cap RX: Hydrocodone/Chlorphen Polis [Tussionex Oral Susp*] 5 ml PO BID PRN #100 ml PRN Reason: Cough RX: Thiamine HCl [Vitamin B-1*] 200 mg PO DAILY #30 tablet RX: Ascorbic Acid [Vitamin C*] 500 mg PO QID #120 tablet RX: Cholecalciferol (Vitamin D3) [Vitamin D 1000 Iu Tab*] 4,000 unit PO DAILY #30 tab RX: Zinc Sulfate [Zinc Sulfate*] 220 mg PO DAILY #30 cap Physician Discharge Instructions: OK TO DC IV AND DC HOME FOLLOW-UP WITH PRIMARY CARE PROVIDER IN 1-2 WEEKS FOLLOW-UP WITH PULMONARY. DR. COX IN 1-2 WEEKS RETURN TO THE ER IF symptoms worsen CALL or TEXT DR. ESCALONA AT [phone] IF ANY QUESTIONS REGARDING HOSPITAL STAY. PLEASE CALL THE FLOOR AT [phone] IF ANY MEDICATION OR NURSING QUESTIONS. Diet: Regular Activity: Fall precautions Followup: NONE,NONE [Primary Care Provider] - Time spent managing pt's care (in minutes): 35
== END 2020-12-08 15:01 | disposition home or self-care (01) | DRG 177 ==
LOC: ER 18:50 → ERHOLD 21:21 → 4TH 23:26
PROVIDERS: ADMIT Family Medicine; ATTEND Hospitalist
PROC: XW033E5 Introduction of Remdesivir Anti-infective into Peripheral Vein, Percutaneous Approach, New Technology Group 5 (ICD-10-PCS; principal; 2020-12-01)
PROC: 5A09557 Assistance with Respiratory Ventilation, Greater than 96 Consecutive Hours, Continuous Positive Airway Pressure (ICD-10-PCS; 2020-12-01)
DX: U07.1 COVID-19 (principal); J12.82 Pneumonia due to coronavirus disease 2019; Z68.43 Body mass index [BMI] 50.0-59.9, adult; E66.01 Morbid (severe) obesity due to excess calories; D69.6 Thrombocytopenia, unspecified; R73.9 Hyperglycemia, unspecified; R09.02 Hypoxemia; Z88.1 Allergy status to other antibiotic agents; Z79.899 Other long term (current) drug therapy; Z90.49 Acquired absence of other specified parts of digestive tract; Z87.891 Personal history of nicotine dependence; Z88.8 Allergy status to other drugs, medicaments and biological substances; Z79.52 Long term (current) use of systemic steroids
CPT/HCPCS: 36415; 71045; 71275; 80048; 80053; 80061; 80076; 82728; 83036; 83605; 83690; 83735; 84145; 84439; 84443; 84484; 85025; 85379; 85610; 85730; 86140; 87040; 87205; 93005; 94010; 96361; 96372; 96374; 96375; 99285; J1650; J2405; J2920; J2930; J7030; Q9967; U0003

== ENCOUNTER → 2021-10-11 | Emergency (ER) | payer OTHER, SELFPAY ==
[2012-06-20 04:42] VITALS: BP 108/62
[~2021-10-11] MED LIST: ACETAMINOPHEN 500 MG TAB ONE; LEVALBUTEROL 1.25 MG/3 ML NEB ONE
--- OUTSIDE RECORDS SUMMARY | 2021-10-11 19:59 | XMS REPORT | Continuity of Care Document ---
:1995 Author Organization [facility] t Address [address] [place] [address] Care Team Providers Name Role Phone MARKELL CASILLAS Primary Care Physician Unavailable DODIE GREY Attending Clinician Unavailable Nae ALEJANDRE Attending Clinician Unavailable Bharathi FLYING INSTRUCTOR Attending Clinician BHARATHI Attending Clinician Unavailable THEONE Attending Clinician Unavailable Singer LANDRY Attending Clinician Doctor Unassigned, Name Attending Clinician Unavailable Braden DOUGLAS Attending Clinician KAMRAN Attending Clinician Unavailable Kamran SOUZA Attending Clinician Jorge A Chen MD Attending Clinician Dodie Grey MD Attending Clinician Jorge A CHEN Admitting Clinician Unavailable Dodie Grey MD Admitting Clinician DODIE GREY Admitting Clinician Unavailable Payers Payer Name Policy Type Policy Number Effective Date Expiration Date Johanny DUMONT [id number] 2019 HEALTH 00:00:00 Problems Condition Condition Condition Status Onset Resolution Last Treating Co mments Source Name Details Category Date Date Treatment Clinician Date Tobacco Tobacco Disease Active 2017-09 Univers use use 2-11 ity of disorder disorder 00:00: [place] [address] Medical Branch BMI BMI Disease Active 2017-09 Univers 50.0-59.9, 50.0-59.9, 2-11 it y of adult adult 00:00: [place] 00 [facility] Branch Allergies, Adverse Reactions, Alerts Allergy Allergy Status Severity Reaction(s) Onset Inactive Treating Comm ents Source Name Type Date Date Clinician SULFA Drug Active Rash Univers (SULFONA Class 7-12 ity of MIDE 00:00: [place] ANTIBIOT 00 Medical ICS) Branch Sulfa Propensi Active Rash Univers (Sulfona ty to 7-12 ity of mide adverse 00:00: [place] Antibiot reaction 00 Medica l ics) s Branch Social History Social Habit Start Date Stop Date Quantity Comments Source History of tobacco Cigarette Smoker University of use [facility] Exposure to Not sure [place] of SARS-CoV-2 (event) [facility] Alcohol intake 2021-07-07 2021-07-07 Current University of 00:00:00 00:00:00 non-drinker of [facility] alcohol Branch (finding) Cigarettes smoked 2019-04-05 2019-04-05 Univers ity of current (pack per 00:00:00 00:00:00 ) - Reported Branch Cigarette 2019-04-05 2019-04-05 University of pack-years 00:00:00 00:00:00 [facility] Tobacco use and 2019-04-05 2019-04-05 Never used Universit y of exposure 00:00:00 00:00:00 [facility] Tobacco Comment 2019-04-05 2019-04-05 patient states Unive rsity of 00:00:00 00:00:00 she quit 2 [facility] months ago Branch Sex Ass[birth year] At [birth year] Universit y of 00:00:00 00:00:00 [facility] Smoking Status Start Date Stop Date Source Former smoker 2019-04-05 00:00:00 2019-04-05 00:00:00 Universi ty of [facility] Medications Ordered Filled Start Stop Current Ordering Indication Dosage Frequency Signature Comments Components Source Medication Medication Date Date Medication? Clinician (SIG) Name Name 2020-09 Yes Take by Unive rs vit 0-11 mouth. ity of calc,iron,f 17:22: [facility] [place] [facility] 09 Medical ( Branch VITAMIN ORAL) 2020-09 Yes Take by Unive rs vit 0-11 mouth. ity of calc,iron,f 17:22: [place] [facility] 09 Medical ( Branch VITAMIN ORAL) ondansetron Yes [id number] 4mg Take 1 Univers 4 mg 3-04 tablet by ity of disintegrat 00:00: mouth [place] ing tablet 00 every 8 Medica l (eight) Branch hours as needed for Nausea and Vomiting (N/V). ondansetron Yes [id number] 4mg Take 1 Univers 4 mg 3-04 tablet by ity of disintegrat 00:00: mouth [place] ing tablet 00 every 8 Medica l (eight) Branch hours as needed for Nausea and Vomiting (N/V). mupirocin 2 2019-09 Yes [id number] Apply to Univers % ointment 1-10 [id number] area(s) 3 it y of 00:00: (three) [place] 00 times Medical daily. Branch mupirocin 2 2019-09 Yes [id number] Apply to Univers % ointment 1-10 [id number] area(s) 3 it y of 00:00: (three) [place] 00 times Medical daily. Branch docusate Yes [id number] 240mg Take 1 Univers calcium 240 3-04 102 capsule by it y of mg capsule 00:00: mouth [place] 00 daily as Medical needed for Branch Constipati on. ferrous 2020- Yes [id number] 325mg Take 1 Univers sulfate 325 3-04 102 tablet by ity of mg (65 mg 00:00: mouth 2 [place] iron) 00 (two) Medical tablet times Branch daily. ibuprofen 2019- Yes [id number] 600mg Take 1 Univers 600 mg 3-04 102 tablet by ity of tablet 00:00: mouth [place] 00 every 6 Medical (six) Branch hours as needed (Pain). Take with food or milk. 2019- Yes [id number] 1{tbl} Take 1 Univers vitamin 3-04 102 tablet by ity of w/FA tablet 00:00: mouth [place] 00 daily. Medical Branch docusate 2019- Yes [id number] 240mg Take 1 Univers calcium 240 3-04 102 capsule by it y of mg capsule 00:00: mouth once [place] 00 daily as Medical needed for Branch Constipati on. ferrous 2020- Yes [id number] 325mg Take 1 Univers sulfate 325 3-04 102 tablet by ity of mg (65 mg 00:00: mouth 2 [place] iron) 00 (two) Medical tablet times Branch daily. ibuprofen Yes [id number] 600mg Take 1 Univers 600 mg 3-04 102 tablet by ity of tablet 00:00: mouth [place] 00 every 6 Medical (six) Branch hours as needed (Pain). Take with food or milk. Yes [id number] 1{tbl} Take 1 Univers vitamin 3-04 102 tablet by ity of w/FA tablet 00:00: mouth [place] 00 daily. Medical Branch FLUoxetine Yes [id number] 40mg Take 1 U nivers 40 mg 1-10 capsule by ity of capsule 00:00: mouth [place] 00 daily. Medical Branch FLUoxetine Yes [id number] 40mg Take 1 U nivers 40 mg 1-10 capsule by ity of capsule 00:00: mouth [place] 00 daily. [facility] Immunizations Ordered Filled Immunization Date Status Comments [facility] e Immunization Name Name TDAP (ADACEL) 2019-10-02 Completed [place] of VACCINE 00:00:00 [facility] TDAP (ADACEL) 2019-10-02 Completed University of VACCINE 00:00:00 [facility] Influenza Virus 2019-07-06 Completed Universit y of Vaccine Quad .5 mL 00:00:00 [facility] IM 6+ MO Branch Influenza Virus 2019-07-06 Completed Universit y of Vaccine Quad .5 mL 00:00:00 [facility] IM 6+ MO Branch Vital Signs Vital Name Observation Time Observation Value Comments Source Systolic blood 2021-07-07 22:21:00 128 mm[Hg] Univer sity of pressure [facility] Diastolic blood 2021-07-07 22:21:00 80 mm[Hg] [facility] 2021-07-07 22:21:00 98 /min [facility] Body temperature 2021-07-07 22:21:00 36.89 Marah [facility] Res[facility] rate 2021-07-07 22:21:00 16 /min [facility] Body weight 2021-07-07 22:21:00 159.213 kg [facility] BMI 2021-07-07 22:21:00 60.25 kg/m2 [facility] Oxygen saturation in 2021-07-07 22:21:00 96 /min University of Arterial blood by [facility] Pulse oximetry Branch Procedures Procedure Date / Time Performed Performing Clinician Sourc e POCT GRP A STREP 2021-07-07 22:33:00 Nettie Sun [facility] Encounters Start End Encounter Admission Attending Care Care Encounter Source Date/Time Date/Time Type Type Clinicians Facility Department ID 2021-07-27 Emergency [facility] [id number] Univers 03:12:16 ity [facility] 2021-07-26 Emergency [facility] [id number] Univers 04:35:53 ity of [facility] 2021-07-24 Emergency [facility] [id number] Univers 12:09:16 ity [facility] 2021-07-24 Outpatient P [facility] JENNI [id number] [facility]-10[facility] 2021-10-31 Outpatient ABDELRAHMAN HIGGINS [facility] [id number] Univers 10:30:00 10:30:00 [id number] [facility] 2021-07-08 2021-07-08 Telephone FERMIN Soni [id number] Univers 00:00:00 00:00:00 Gretel LEMUS [id number] it y [facility] [id number] Kp as [id number] [place] [address] Branch 2021-07-07 2021-07-07 Urgent [facility] [id number] Univers 17:09:41 18:04:40 Care [facility] [id number] i ty [facility] [id number] Kp as Bill?Blea [id number] Ut carlos manuel [address] Medical Office Building 2021-07-07 2021-07-07 Outpatient [facility] [id number] Univers 17:00:00 17:00:00 [id number] [facility] 2021-07-07 2021-07-07 Outpatient R BHARATHI [facility] [id number] Univers 17:00:00 17:00:00 NETTIE shukla f [facility] 2021-02-28 2021-02-28 Outpatient [facility] [id number] Univers 11:00:00 11:00:00 [id number] [facility] 2021-02-28 2021-02-28 Outpatient Anthony JOSELIN, [facility] [id number] Univers 11:00:00 11:00:00 JENNIE [facility] 2021-02-27 2021-02-27 Outpatient [facility] [id number] Univers 11:00:00 11:00:00 [id number] [facility] 2020-11-28 2020-11-28 [facility] [id number] 11:52:00 14:05:00 Jozef Grigsby 350.1.13.10 [place] 4.2.7.2.686 [place] [id number] 2020-11-28 2020-11-28 Orders Doctor CHRISTENSEN [id number] 00:00:00 00:00:00 Only UnassignedMARIAH 350.1.13.10 [facility] 4.2.7.2.686 [id number] 2020-08-06 2020-08-06 [facility] [id number] 21:07:00 22:02:00 Dread Grigsby [id number] [place] 4.2.7.2.686 [place] [id number] 2020-08-06 2020-08-06 Orders Doctor CHRISTENSEN [id number] 00:00:00 00:00:00 Only UnassignedMARIAH 350.1.13.10 [place] [id number] 2020-06-27 2020-06-27 Outpatient Anthony ANDREW, [facility] [id number] Univers 13:30:00 13:30:00 RIMMA [facility] 2020-06-27 2020-06-27 Outpatient Anthony ANDREW, [facility] [id number] Univers 13:30:00 13:30:00 RIMMA [facility] 2020-03-28 2020-03-28 Outpatient R ABDELRAHMAN GREY [facility] [id number] Univers 13:30:00 13:30:00 [facility] 2020-03-28 2020-03-28 Outpatient R ABDELRAHMAN GREY [facility] [id number] [facility] 13:30:00 13:30:00 [facility] 2019-12-27 2019-12-27 Outpatient R KAMRAN [facility] [id number] Univers 13:00:00 13:00:00 RIMMA [facility] 2019-12-27 2019-12-27 [facility]ici [facility] [id number] 08:34:05 08:49:05 ne Visit Rimma Grigsby [id number] [place] 4.2.7.2.686 Professio [id number] [address] 2019-11-28 2019-11-29 Hospital Vanessa Chen [facility] ..[id number] 07:13:02 16:05:00 Encounter Abdelrahman Grey Seb 350.1.13.10 [place] [id number] [place] [id number] 2019-11-29 2019-11-29 Outpatient R ABDELRAHMAN GREY [facility] [id number] Univers 13:30:00 13:30:00 [facility] 2019-11-29 2019-11-29 Outpatient R ABDELRAHMAN GREY [facility] [id number] Univers 13:30:00 13:30:00 [facility] 2019-11-22 2019-11-22 Routine Kamran [facility] [id number] 12:56:24 16:32:07 Rimma Grigsby 350.1.13.10 Visit [place] 4.2.7.2.686 Professio [id number] [address] 2019-11-22 2019-11-22 Outpatient R KAMRAN [facility] [id number] Univers 16:00:00 16:00:00 RIMMA [facility] 2019-11-16 2019-11-16 Outpatient P ABDELRAHMAN GREY [facility] JENNI [id number] Univers 15:08:00 19:25:00 [facility] Results Test Description Test Time Test Comments Results Result Comments Source POCT GRP A STREP (MOLECULAR) 2021-07-07 22:43:00 Test Item Value Reference Range Interpretation Comme nts POCT GP A STREP (test code = neg Negative - Negative 70046-7) KASSANDRA (test code = KASSANDRA) accurate development and interpretation of all internal controls Lab Interpretation (test code = Normal 60676-6) [facility]
== END ==
LOC: ER 19:55
DX: U07.1 COVID-19 (principal); Z88.2 Allergy status to sulfonamides
CPT/HCPCS: U0003

== ENCOUNTER 2021-10-12 07:51 | Emergency (ER) | payer OTHER ==
--- OUTSIDE RECORDS SUMMARY | 2021-10-12 07:57 | XMS REPORT | Continuity of Care Document ---
:1995 Author Organization [facility] t Address [address] [place] [address] Care Team Providers Name Role Phone MARKELL CASILLAS Primary Care Physician Unavailable DODIE GREY Attending Clinician Unavailable Nae ALEJANDRE Attending Clinician Unavailable Bharathi [employer] MANAGER Attending Clinician BHARATHI Attending Clinician Unavailable THEONE [...] Number Effective Date Expiration Date Johanny DUMONT [id number] 2019 HEALTH 00:00:00 Problems Condition Condition Condition Status Onset Resolution Last Treating Co mments Source Name Details Category Date Date Treatment Clinician Date Tobacco Tobacco Disease Active 2017-09 Univers use use 2-11 ity of disorder disorder 00:00: [place] [id number] Medical Branch BMI BMI Disease Active 2017-09 Univers 50.0-59.9, 50.0-59.9, 2-11 it y of adult adult 00:00: [place] [address] [facility] Branch Allergies, Adverse Reactions, Alerts Allergy Allergy [...] of tobacco Cigarette Smoker University of use [facility] Exposure to Not sure [place] of SARS-CoV-2 (event) [facility] Alcohol intake 2021-07-07 2021-07-07 Current University of 00:00:00 00:00:00 non-drinker of [facility] alcohol Branch (finding) Cigarettes smoked 2019-04-05 2019-04-05 Univers ity of current (pack per 00:00:00 00:00:00 ) - Reported Branch Cigarette 2019-04-05 2019-04-05 University of pack-years 00:00:00 00:00:00 [facility] Tobacco use and 2019-04-05 2019-04-05 Never used Universit y of exposure 00:00:00 00:00:00 [facility] Tobacco Comment 2019-04-05 2019-04-05 patient states Unive rsity of 00:00:00 00:00:00 she quit 2 [facility] months ago Branch Sex Ass[birth year] At [birth year] Universit y of 00:00:00 00:00:00 [facility] Smoking Status Start Date Stop Date Source Former smoker 2019-04-05 00:00:00 2019-04-05 00:00:[address] [facility] Medications Ordered Filled Start Stop Current Ordering Indication Dosage Frequency Signature Comments Components Source Medication Medication Date Date Medication? Clinician (SIG) Name Name 2020-09 Yes Take by Unive rs vit 0-11 mouth. ity of calc,iron,f 17:22: [facility] 09 Medical ( Branch VITAMIN ORAL) 2020-09 Yes Take by Unive rs vit 0-11 mouth. ity of calc,iron,f 17:22: [place] [facility] 09 Medical ( Branch VITAMIN ORAL) ondansetron Yes [id number] 4mg Take 1 Univers 4 mg 3-04 tablet by ity of disintegrat 00:00: mouth [place] ing tablet 00 every 8 Medica l (eight) Branch hours as needed for Nausea and Vomiting (N/V). ondansetron Yes [id number] 4mg Take 1 Univers 4 mg 3-04 tablet by ity of disintegrat 00:00: mouth [place] ing tablet 00 every 8 Medica l (eight) Branch hours as needed for Nausea and Vomiting (N/V). mupirocin 2 2019-09 Yes [id number] Apply to Univers % ointment 1-10 [id number] area(s) 3 it y of 00:00: (three) [place] 00 times Medical daily. Branch mupirocin 2 2019-09 Yes [id number] Apply to Univers % ointment 1-10 [id number] area(s) 3 it y of 00:00: (three) [place] 00 times Medical daily. Branch docusate Yes [id number] 240mg Take 1 Univers calcium 240 3-04 102 capsule by it y of mg capsule 00:00: mouth once [place] 00 daily as Medical needed for Branch Constipati on. ferrous 2020- Yes [id number] 325mg Take 1 Univers sulfate 325 3-04 102 tablet by ity of mg (65 mg 00:00: mouth 2 [place] iron) 00 (two) Medical tablet times Branch daily. ibuprofen 2019- Yes [id number] 600mg Take 1 Univers 600 mg 3-04 102 tablet by ity of tablet 00:00: mouth [place] 00 every 6 Medical (six) Branch hours as needed (Pain). Take with food or milk. 2019- Yes [id number] 1{tbl} Take 1 Univers vitamin 3-04 102 tablet by ity of w/FA tablet 00:00: mouth [place] 00 daily. Medical Branch docusate 2019- Yes [id number] 240mg Take 1 Univers calcium 240 3-04 102 capsule by it y of mg capsule 00:00: mouth once [place] 00 daily as Medical needed for Branch Constipati on. ferrous 2020- Yes [id number] 325mg Take 1 Univers sulfate 325 3-04 102 tablet by ity of mg (65 mg 00:00: mouth 2 [place] iron) 00 (two) Medical tablet times Branch daily. ibuprofen Yes [id number] 600mg Take 1 Univers 600 mg 3-04 102 tablet by ity of tablet 00:00: mouth [place] 00 every 6 Medical (six) Branch hours as needed (Pain). Take with food or milk. Yes [id number] 1{tbl} Take 1 Univers vitamin 3-04 102 tablet by ity of w/FA tablet 00:00: mouth [place] 00 daily. Medical Branch FLUoxetine Yes [id number] 40mg Take 1 U nivers 40 mg 1-10 capsule by ity of capsule 00:00: mouth [place] 00 daily. Medical Branch FLUoxetine Yes [id number] 40mg Take 1 U nivers 40 mg 1-10 capsule by ity of capsule 00:00: mouth [place] 00 daily. [facility] Immunizations Ordered Filled Immunization Date Status Comments [facility] e Immunization Name Name TDAP (ADACEL) 2019-10-02 Completed [place] of VACCINE 00:00:00 [facility] TDAP (ADACEL) 2019-10-02 Completed University of VACCINE 00:00:00 [facility] Influenza Virus 2019-07-06 Completed Universit y of Vaccine Quad .5 mL 00:00:00 [facility] IM 6+ MO Branch Influenza Virus 2019-07-06 Completed Universit y of Vaccine [place] .5 mL 00:00:00 [facility] IM 6+ MO Branch Vital Signs Vital Name Observation Time Observation Value Comments Source Systolic blood 2021-07-07 22:21:00 128 mm[Hg] Univer sity of pressure [facility] Diastolic blood 2021-07-07 22:21:00 80 [facility]Hg[facility] 2021-07-07 22:21:00 98 /min [facility] Body temperature 2021-07-07 22:21:00 36.89 Mar[facility] Respiratory rate 2021-07-07 22:21:00 16 /min [facility] Body weight 2021-07-07 22:21:00 159.213 kg [facility] BMI 2021-07-07 22:21:00 60.25 kg/m2 [facility] Oxygen saturation in 2021-07-07 22:21:00 96 /min University of Arterial blood by [facility] Pulse oximetry Branch Procedures Procedure Date / Time Performed Performing Clinician Sourc e POCT GRP A STREP 2021-07-07 22:33:00 Nettie Sun [facility] Encounters Start End Encounter Admission Attending Care Care Encounter Source Date/Time Date/Time Type Type Clinicians Facility Department ID 2021-07-27 Emergency [facility] [id number] Univers 03:12:16 ity [facility] 2021-07-26 Emergency [facility] [id number] Univers 04:35:[address] [facility] 2021-07-24 Emergency [facility] [id number] Univers 12:09:16 ity [facility] 2021-07-24 Outpatient P [facility] JENNI [id number] [facility] 2021-10-31 2021-10-31 Outpatient ABDELRAHMAN HIGGINS [facility] [id number] Univers 10:30:00 10:30:00 [id number] [facility] 2021-07-08 2021-07-08 Telephone FERMIN Soni [id number] Univers 00:00:00 00:00:00 Gretel LEMUS [id number] it y [facility] [id number] Kp as [id number] [place] [address] Branch 2021-07-07 2021-07-07 Urgent [facility] [id number] Univers 17:09:41 18:04:40 Care [facility] [id number] i ty [facility] [id number] Kp as Bill?Blea [phone] Ar carlos manuel [address] Medical [facility] 2021-07-07 2021-07-07 Outpatient [facility] [id number] Univers 17:00:00 17:00:00 [id number] [facility] 2021-07-07 2021-07-07 Outpatient R BHARATHI [facility] [id number] Univers 17:00:00 17:00:[address] [facility] 2021-02-28 2021-02-28 Outpatient [facility] [id number] Univers 11:00:00 11:00:00 [id number] [facility] 2021-02-28 2021-02-28 Outpatient Anthony JOSELIN, [facility] [id number] Univers 11:00:00 11:00:00 JENNIE [facility] 2021-02-27 2021-02-27 Outpatient [facility] [id number] Univers 11:00:00 11:00:00 [id number] [facility] 2020-11-28 2020-11-28 [facility] [id number] 11:52:00 14:05:00 Jozef Grigsby [id number] [place] 4.2.7.2.686 [place] [id number] 2020-11-28 2020-11-28 Orders Doctor CHRISTENESN [id number] 00:00:00 00:00:00 Only UnassignedMARIAH [id number] [facility] [id number] [id number] 2020-08-06 2020-08-06 Emergency [facility] [id number] 21:07:00 22:02:00 Dread Grigsby [id number] [place] [id number] [place] [id number] 2020-08-06 2020-08-06 Orders Doctor CHRISTENSEN [id number] 00:00:00 00:00:00 Only UnassignedMARIAH [id number] [place] [id number] 2020-06-27 2020-06-27 Outpatient Anthony ANDREW, [facility] [id number] Univers 13:30:00 13:30:00 RIMMA [facility] 2020-06-27 2020-06-27 Outpatient Anthony ANDREW, [facility] [id number] Univers 13:30:00 13:30:00 RIMMA [facility] 2020-03-28 2020-03-28 Outpatient R ABDELRAHMAN GREY [facility] [id number] Univers 13:30:00 13:30:00 [facility] 2020-03-28 2020-03-28 Outpatient R ABDELRAHMAN GREY [facility] [id number] [facility] 13:30:00 13:30:00 [facility] 2019-12-27 2019-12-27 Outpatient R KAMRAN [facility] [id number] Univers 13:00:00 13:00:00 RIMMA [facility] 2019-12-27 2019-12-27 Telemedici [facility] [id number] 08:34:05 08:49:05 ne Visit Rimma Grigsby [id number] [place] [id number] Professio [id number] [address] 2019-11-28 2019-11-29 Hospital Vanessa Chen [facility] ..[id number] 07:13:02 16:05:00 Encounter Abdelrahman Grey eSb [id number] [place] [id number] [place] [id number] 2019-11-29 2019-11-29 Outpatient R ABDELRAHMAN GREY [facility] [id number] Univers 13:30:00 13:30:00 [facility] 2019-11-29 2019-11-29 Outpatient R ABDELRAHMAN GREY [facility] [id number] Univers 13:30:00 13:30:00 [facility] 2019-11-22 2019-11-22 Routine Kamran [facility] [id number] 12:56:24 16:32:07 Rimma Grigsby [id number] Visit [place] [id number] Professio [id number] [address] 2019-11-22 2019-11-22 Outpatient R KAMRAN [facility] [id number] Univers 16:00:00 16:00:00 RIMMA [facility] 2019-11-16 2019-11-16 Outpatient P ABDELRAHMAN GREY [facility] JENNI [id number] Univers 15:08:00 19:25:00 [facility] Results Test Description Test Time Test Comments Results Result Comments Source POCT GRP A STREP (MOLECULAR) 2021-07-07 22:43:00 Test Item Value Reference Range Interpretation Comme nts POCT GP A STREP (test code = neg Negative - Negative 55849-7) KASSANDRA (test code = KASSANDRA) accurate development and interpretation of all internal controls Lab Interpretation (test code = Normal 75319-1) [facility]
--- NOTE | 2021-10-12 09:55 | RAD REPORT ---
EXAM DESCRIPTION: RAD - Chest Single View - 10/12/2021 9:41 am CLINICAL HISTORY: SOB Chest pain. COMPARISON: Chest Single View dated 11/30/2020; Chest Single View dated 01/14/2018; CHEST SINGLE VIEW d ated 12/22/2014; CHEST SINGLE VIEW dated 12/21/2013 FINDINGS: Portable technique limits examination quality. Mild to moderate bilateral pulmonary opacities are present probably representing a viral infection. T he heart is normal in size. No displaced fractures.
[2021-10-12 10:54] LABS: Absolute Lymphocytes (CBC) 2.5 K/uL (0.7-4.9); Hematocrit 40.8 % (36.0-45.0); Lymphocytes % 21.6 % (15.3-44.8); MPV 7.9 fL (7.6-11.3)
[2021-10-12 11:11] LABS: Potassium 3.1 mmol/L (3.5-5.1)
--- NOTE | 2021-10-12 11:27 | RAD REPORT ---
EXAM DESCRIPTION: CT - Chest For Pe Angio - 10/12/2021 11:14 am CLINICAL HISTORY: Chest pain. DYSPNEA COMPARISON: Chest For Pe Angio dated 11/30/2020; Chest Single View dated 10/12/2021; Chest Single View dated 11/30/2020 TECHNIQUE: CT angiogram of the pulmonary arteries was performed with MIP. All CT scans are performed using dose optimization technique as appropriate and may include automated exposure control or mA/KV adjustment according to patient size. FINDINGS: No evidence of pulmonary thromboembolism. No acute aortic finding demonstrated. Mild ground-glass opacities are seen greatest in the lung bases. No significant pericardial or pleural fluid. No concerning bony finding. IMPRESSION: No evidence of pulmonary thromboembolism. Minimal ground-glass opacities in lung bases probably indicate a mild viral infection.
[2021-10-12] MEDS ORDERED: POTASSIUM CL SA 10 MEQ TAB PO ONE (11:37)
--- NOTE | 2021-10-12 12:19 | EDPHYS ---
Physician Documentation [facility] Name: Zacarias Thomson Age: 26 yrs Sex: Female : 1995 Arrival Date: 10/12/2021 Time: 07:56 Bed 9 Private MD: ED Physician Oleksandr Chávez HPI: 10/12 08:34 This 26 yrs old Female presents to ER via Ambulatory with complaints of kdr Shortness Of Breath, Cough, Headache, Sore Throat. 08:34 The patient has shortness of breath at rest, with light activity. Onset: The kdr symptoms/episode began/occurred gradually, 3 day(s) ago. Duration: The symptoms are intermittent. The patient's shortness of breath is aggravated by coughing, exertion, light activity, is alleviated by nothing. Associated signs and symptoms: Pertinent positives: non-productive cough, Pertinent negatives: fever, hemoptysis, loss of consciousness, nausea, numbness in extremities, visual changes. Severity of symptoms: At their worst the symptoms were mild in the emergency department the symptoms are unchanged. The patient has not experienced similar symptoms in the past. The patient has not recently seen a physician. She presents to the ED for the second time in less than 24 hours. She was here last evening and swabbed for COVID. It was positive. Patient has been seen here previously back in November 2020. At that time she was hypoxic with oxygen saturations in the 70s. She was admitted at that time with pneumonia. Today she presents with shortness of breath for 2 or 3 days. She denies fever. She has had a nonproductive cough. She feels like she is wheezing when she breathes. She is concerned for recurrence of her pneumonia and COVID. Her swab result was positive from last night.. 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 - Social history:: Smoking status: Patient uses street drugs, marijuana. ROS: 08:34 Constitutional: Negative for fever, chills, and weight loss, Eyes: Negative for injury, kdr pain, redness, and discharge, ENT: Negative for injury, pain, and discharge, Neck: Negative for injury, pain, and swelling, Cardiovascular: Negative for chest pain, palpitations, and edema, Abdomen/GI: Negative for abdominal pain, nausea, vomiting, diarrhea, and constipation, Back: Negative for injury and pain, : Negative for injury, bleeding, discharge, and swelling, MS/Extremity: Negative for injury and deformity, Skin: Negative for injury, rash, and discoloration, Neuro: Negative for headache, weakness, numbness, tingling, and seizure activity. Psych: Negative for depression, anxiety, suicide ideation, homicidal ideation, and hallucinations, Allergy/Immunology: Negative for hives, rash, and allergies, Endocrine: Negative for neck swelling, polydipsia, polyuria, polyphagia, and marked weight changes, Hematologic/Lymphatic: Negative for swollen nodes, abnormal bleeding, and unusual bruising. 08:34 Respiratory: Positive for cough, with no reported sputum, dyspnea on exertion, shortness of breath, at rest. wheezing. Exam: 08:34 Constitutional: This is a well developed, well nourished patient who is awake, alert, kdr and in no acute distress. Head/Face: Normocephalic, atraumatic. Eyes: Pupils equal round and reactive to light, extra-ocular motions intact. Lids and lashes normal. Conjunctiva and sclera are non-icteric and not injected. Cornea within normal limits. Periorbital areas with no swelling, redness, or edema. Neck: Trachea midline, no thyromegaly or masses palpated, and no cervical lymphadenopathy. Supple, full range of motion without nuchal rigidity, or vertebral point tenderness. No Meningismus. Chest/axilla: Normal chest wall appearance and motion. Nontender with no deformity. No lesions are appreciated. Cardiovascular: Regular rate and rhythm with a normal S1 and S2. No gallops, murmurs, or rubs. Normal PMI, no JVD. No pulse deficits. Abdomen/GI: Soft, non-tender, with normal bowel sounds. No distension or tympany. No guarding or rebound. No evidence of tenderness throughout. Back: No spinal tenderness. No costovertebral tenderness. Full range of motion. Skin: Warm, dry with normal turgor. Normal color with no rashes, no lesions, and no evidence of cellulitis. MS/ Extremity: Pulses equal, no cyanosis. Neurovascular intact. Full, normal range of motion. Neuro: Awake and alert, GCS 15, oriented to person, place, time, and situation. Cranial nerves II-XII grossly intact. Motor strength 5/5 in all extremities. Sensory grossly intact. Cerebellar exam normal. Normal gait. Psych: Awake, alert, with orientation to person, place and time. Behavior, mood, and affect are within normal limits. 08:34 Respiratory: the patient does not display signs of respiratory distress, Respirations: normal, Breath sounds: wheezing: Vital Signs: 08:09 BP 126 / 91; Pulse 119; Resp 20; Temp 99.9; Pulse Ox 99% on R/A; Weight 155 kg; Height iw 5 ft. 4 in. (162.56 cm); 10:40 Pulse 121; Resp 22 S; Temp 99.4(O); Pulse Ox 95% on R/A; iw 12:22 Pulse 104; Resp 18; Pulse Ox 97% on R/A; iw 08:09 Body Mass Index 58.65 (155.00 kg, 162.56 cm) iw MDM: 08:34 Data reviewed: vital signs, nurses notes, lab test result(s), radiologic studies. kdr Counseling: I had a detailed discussion with the patient and/or guardian regarding: the historical points, exam findings, and any diagnostic results supporting the discharge/admit diagnosis, lab results, radiology results. 10:42 ED course: The patient's shortness of breath persist despite interventions. Her heart kdr rate also continue to be elevated. Given her prior history, will CT her chest to make certain there is no PE or other significant pneumonia.. 12:18 Patient medically screened. kdr 10/12 10:31 Order name: CBC with Diff; Complete Time: 11:19 kdr 10/12 10:31 Order name: Chem 7; Complete Time: 11:19 kdr 10/12 08:17 Order name: CXR XRAY; Complete Time: 10:15 kdr 10/12 10:31 Order name: Chest For PE Angio CT; Complete Time: 12:20 kdr Administered Medications: 09:02 Drug: Xopenex (levalbuterol) (3) 1.25 mg Route: Inhalation; iw 11:40 Drug: Potassium Chloride 40 mEq Route: PO; iw 12:00 Follow up: Response: No adverse reaction iw Disposition Summary: 10/12/21 12:18 Discharge Ordered Location: Home kdr Problem: new kdr Symptoms: have improved kdr Condition: Stable kdr Diagnosis - Shortness of breath kdr - Cough kdr - Headache kdr - SARS-associated coronavirus as the cause of diseases classified elsewhere kdr Followup: kdr - With: Private Physician - When: 2 - 3 days - Reason: If symptoms return, Further diagnostic work-up, Recheck today's complaints, Continuance of care, Re-evaluation by your physician Discharge Instructions: - Discharge Summary Sheet kdr - General Headache Without Cause kdr - Shortness of Breath, Adult, Sk[place]-rr-Tlnp kdr - COVID-19 kdr - 10 Things You Can Do to Manage Your COVID-19 Symptoms at Home - [facility] kdr - Viral Illness, Adult kdr - COVID-19: Quarantine vs. Isolation - [facility] kdr - Prevent the Spread of COVID-19 if You Are Sick - [facility] kdr Forms: - Medication Reconciliation Form kdr - Thank You Letter kdr Signatures: Dispatcher [employer] Oleksandr Rdz MD MD kdr Dilia Snowden RN RN iw
--- NOTE | 2021-10-12 12:19 | ER ---
Nurse's Notes [facility] Name: Zacarias Thomson Age: 26 yrs Sex: Female : 1995 Arrival Date: 10/12/2021 Time: 07:56 Bed 9 Private MD: Diagnosis: Shortness of breath;Cough;Headache;SARS-associated coronavirus as the cause of diseases classified elsewhere Presentation: 10/12 08:07 Chief complaint: Patient states: cough, SOB, chest tightness, feels her heart pounding, iw hears wheezing in her throat, fever, headache, had COVID last year and had pneumonia. Coronavirus screen: Client presents with at least one sign or symptom that may indicate coronavirus-19. Ebola Screen: Patient negative for fever greater than or equal to 101.5 degrees Fahrenheit, and additional compatible Ebola Virus Disease symptoms Patient denies exposure to infectious person. Patient denies travel to an Ebola-affected area in the 21 days before illness onset. No symptoms or risks identified at this time. 08:07 Method Of Arrival: Ambulatory iw 08:07 Acuity: ADALBERTO 3 iw 08:20 Initial Sepsis Screen: Does the patient meet any 2 criteria? No. Patient's initial iw sepsis screen is negative. Does the patient have a suspected source of infection? No. Patient's initial sepsis screen is negative. Risk Assessment: Do you want to hurt yourself or someone else? Patient reports no desire to harm self or others. Onset of symptoms was October 12, 2021. Triage Assessment: 08:20 General: Appears in no apparent distress. Behavior is calm, cooperative. Respiratory: iw Reports shortness of breath labored breathing pain with respiration the patient has moderate shortness of breath. 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 - Social history:: Smoking status: Patient uses street drugs, marijuana. Screenin:00 Abuse screen: Denies threats or abuse. Denies injuries from another. Nutritional iw screening: No deficits noted. Tuberculosis screening: No symptoms or risk factors identified. Fall Risk IV access (20 points). Assessment: 08:20 General: Appears in no apparent distress. Behavior is calm, cooperative. Pain: iw Complains of pain in chest. Neuro: Level of Consciousness is awake, alert, obeys commands, Oriented to person, place, time, situation, Moves all extremities. Full function. Cardiovascular: Rhythm is sinus tachycardia. Respiratory: Airway is patent Respiratory effort is even, unlabored. 08:20 Respiratory: Breath sounds with wheezes. iw 09:30 Reassessment: Patient appears in no apparent distress at this time. iw 10:00 Reassessment: pt states she feels SOB on exertion, not better after breathing treatment iw , ambulate pt with pulse ox, O2 sat remains above 95% on RA, Dr. Chávez updated, will scan pt chest. Vital Signs: 08:09 BP 126 / 91; Pulse 119; Resp 20; Temp 99.9; Pulse Ox 99% on R/A; Weight 155 kg; Height iw 5 ft. 4 in. (162.56 cm); 10:40 Pulse 121; Resp 22 S; Temp 99.4(O); Pulse Ox 95% on R/A; iw 12:22 Pulse 104; Resp 18; Pulse Ox 97% on R/A; iw 08:09 Body Mass Index 58.65 (155.00 kg, 162.56 cm) iw ED Course: 07:56 Patient arrived in ED. mr 08:08 Triage completed. iw 08:10 Arm band placed on. iw 08:12 Dilia Snowden, RN is Primary Nurse. iw 08:15 Oleksandr Chávez MD is Attending Physician. kdr 08:30 Patient has correct armband on for positive identification. iw 09:41 CXR XRAY In Process Unspecified. EDMS 10:43 Inserted saline lock: 20 gauge in right antecubital area, using aseptic technique. iw 11:14 Chest For PE Angio CT In Process Unspecified. EDMS 12:40 No provider procedures requiring assistance completed. IV discontinued, intact, iw bleeding controlled, No redness/swelling at site. Pressure dressing applied. Administered Medications: 09:02 Drug: Xopenex (levalbuterol) (3) 1.25 mg Route: Inhalation; iw 11:40 Drug: Potassium Chloride 40 mEq Route: PO; iw 12:00 Follow up: Response: No adverse reaction iw Outcome: 12:18 Discharge ordered by . kdr 12:40 Discharged to home ambulatory. iw 12:40 Condition: good 12:40 Discharge instructions given to patient, Instructed on discharge instructions, follow up and referral plans. Demonstrated understanding of instructions, follow-up care. 12:40 Patient left the ED. iw Signatures: Dispatcher [employer] Oleksandr Rdz MD MD [facility], Misty mr Dilia Snowden RN RN iw Corrections: (The following items were deleted from the chart) 14:52 11:00 Reassessment: pt states she feels SOB on exertion, not better after breathing iw treatment , ambulate pt with pulse ox, O2 sat remains above 95% on RA, Dr. Chávez updated, will scan pt chest iw
[2021-10-12 12:54] VITALS: BP 126/91
[2021-10-12 12:58] VITALS: TEMP 99.4
[2021-10-12 13:03] VITALS: O2SAT 97
== END 2021-10-12 12:40 | disposition home or self-care (01) ==
LOC: ER 07:51
DX: U07.1 COVID-19 (principal); R06.02 Shortness of breath; R05.9 Cough, unspecified; R51.9 Headache, unspecified
CPT/HCPCS: 85025; 80048; 36415; 71275; 71045; 99284; Q9967

== ENCOUNTER 2021-10-19 21:11 | Emergency (ER) | payer OTHER ==
--- OUTSIDE RECORDS SUMMARY | 2021-10-19 21:14 | XMS REPORT | Continuity of Care Document ---
:1995 Author Organization [facility] t Address [address] [place] [address] Care Team Providers Name Role Phone MARKELL CASILLAS Primary Care Physician Unavailable DODIE GREY Attending Clinician Unavailable Nae ALEJANDRE Attending Clinician Unavailable Bharathi ELECTROMECHANIC Attending Clinician BHARATHI Attending Clinician Unavailable JOSELIN Attending Clinician Unavailable Singer LANDRY Attending Clinician [...] Policy Number Effective Date Expiration Date Johanny fitzpatrick [facility] [id number] 2019 00:00:00 [employer] [id number] 2020 OUT OF NETWORK 00:00:00 Problems Condition Condition Condition Status Onset Resolution Last Treating Co mments Source Name Details Category Date Date Treatment Clinician Date Tobacco Tobacco Disease Active 2017-09 Univers use use 2-11 ity of disorder disorder 00:00: [place] 00 Medical Branch BMI BMI Disease Active 2017-09 Univers 50.0-59.9, 50.0-59.9, 2-11 it y of adult adult 00:00: [place] [address] [facility] Branch Allergies, Adverse Reactions, Alerts Allergy Allergy [...] of tobacco Cigarette Smoker University of use [facility] Exposure to Not sure [place] of SARS-CoV-2 (event) [facility] Alcohol intake 2021-07-07 2021-07-07 Current University of 00:00:00 00:00:00 non-drinker of [facility] alcohol Branch (finding) Cigarettes smoked 2019-04-05 2019-04-05 Univers ity of current (pack per 00:00:00 00:00:00 [place] ) - Reported Branch Cigarette 2019-04-05 2019-04-05 University of pack-years 00:00:00 00:00:00 [facility] Tobacco use and 2019-04-05 2019-04-05 Never used Universit y of exposure 00:00:00 00:00:00 [facility] Tobacco Comment 2019-04-05 2019-04-05 patient states Unive rsity of 00:00:00 00:00:00 she quit 2 [facility] months ago Branch Sex Assigned At [birth year] Universit y of 00:00:00 00:00:00 [facility] Smoking Status Start Date Stop Date Source Former smoker 2019-04-05 00:00:00 2019-04-05 00:00:00 Universi ty of [facility] Medications Ordered Filled Start Stop Current Ordering Indication Dosage Frequency Signature Comments Components Source Medication Medication Date Date Medication? Clinician (SIG) Name Name 2020-09 Yes Take by Zoeticxe rs vit 0-11 mouth. ity of calc,iron,f 17:22: [place] olic 09 Medical ( Branch VITAMIN ORAL) 2021-1 Yes Take by Zoeticxe rs vit 0-11 mouth. ity of calc,iron,f 17:22: [place] olic 09 Medical ( Branch VITAMIN ORAL) ondansetron Yes [id number] 4mg Take 1 Univers 4 mg 3-04 tablet by ity of disintegrat 00:00: mouth [place] ing tablet 00 every 8 Medica l (eight) Branch hours as needed for Nausea and Vomiting (N/V). ondansetron Yes [id number] 4mg Take 1 Univers 4 mg 3-04 tablet by ity of disintegrat 00:00: mouth [place] ing tablet 00 every 8 Medica l (eight) Branch hours as needed for Nausea and Vomiting (N/V). mupirocin 2 2019-09 Yes [id number] Apply to Univers % ointment 1-10 [id number] area(s) 3 it y of 00:00: (three) [place] 00 times Medical daily. Branch mupirocin 2 2019-09 Yes [id number] Apply to Univers % ointment 1-10 [id number] area(s) 3 it y of 00:00: (three) [place] 00 times Medical daily. Branch docusate Yes [id number] 240mg Take 1 Univers calcium 240 3-04 102 capsule by it y of mg capsule 00:00: mouth [place] 00 daily as Medical needed for Branch Constipati on. ferrous 2020-0 Yes [id number] 325mg Take 1 Univers sulfate 325 3-04 102 tablet by ity of mg (65 mg 00:00: mouth 2 [place] iron) 00 (two) Medical tablet times Branch daily. ibuprofen Yes [id number] 600mg Take 1 Univers 600 mg 3-04 102 tablet by ity of tablet 00:00: mouth [place] 00 every 6 Medical (six) Branch hours as needed (Pain). Take with food or milk. 2019-0 Yes [id number] 1{tbl} Take 1 Univers vitamin 3-04 102 tablet by ity of w/FA tablet 00:00: mouth [place] 00 daily. Medical Branch docusate 2019-0 Yes [id number] 240mg Take 1 Univers calcium 240 3-04 102 capsule by it y of mg capsule 00:00: mouth once [place] 00 daily as Medical needed for Branch Constipati on. ferrous 2020-0 Yes [id number] 325mg Take 1 Univers sulfate 325 3-04 102 tablet by ity of mg (65 mg 00:00: mouth 2 [place] iron) 00 (two) Medical tablet times Branch daily. ibuprofen Yes [id number] 600mg Take 1 Univers 600 mg 3-04 102 tablet by ity of tablet 00:00: mouth [place] 00 every 6 Medical (six) Branch hours as needed (Pain). Take with food or milk. Yes [id number] 1{tbl} Take 1 Univers vitamin 3-04 102 tablet by ity of w/FA tablet 00:00: mouth [place] 00 daily. Medical Branch FLUoxetine Yes [id number] 40mg Take 1 U nivers 40 mg 1-10 capsule by ity of capsule 00:00: mouth [place] 00 daily. Medical Branch FLUoxetine Yes [id number] 40mg Take 1 U nivers 40 mg 1-10 capsule by ity of capsule 00:00: mouth [place] 00 daily. Medical Branch Immunizations Ordered Filled Immunization Date Status Comments [facility] e Immunization Name Name TDAP (ADACEL) 2019-10-02 Completed University of VACCINE 00:00:00 [facility] TDAP (ADACEL) 2019-10-02 Completed University of VACCINE 00:00:00 [facility] Influenza Virus 2019-07-06 Completed Universit y of Vaccine Quad .5 mL 00:00:00 [facility] IM 6+ [place] Branch Influenza Virus 2019-07-06 Completed Universit y of Vaccine Quad .5 mL 00:00:00 [facility] IM 6+ MO Branch Vital Signs Vital Name Observation Time Observation Value Comments Source Systolic blood 2021-07-07 22:21:00 128 mm[Hg] Univer sity of pressure [facility] Diastolic blood 2021-07-07 22:21:00 80 mm[Hg] [facility] Heart rate 2021-07-07 22:21:00 98 /min [facility] Body temperature 2021-07-07 22:21:00 36.89 [facility] Respiratory rate 2021-07-07 22:21:00 16 /min [facility] Body weight 2021-07-07 22:21:00 159.213 kg [facility] BMI 2021-07-07 22:21:00 60.25 kg/m2 Universi ty of [facility] Oxygen saturation in 2021-07-07 22:21:00 96 /min University of Arterial blood by [facility] Pulse oximetry Branch Procedures Procedure Date / Time Performed Performing Clinician Sourtremayne e POCT GRP A STREP 2021-07-07 22:33:00 Nettie Sun [facility] Encounters Start End Encounter Admission Attending Care Care Encounter Source Date/Time Date/Time Type Type Clinicians Facility Department ID 2021-07-27 Emergency [facility] [id number] Univers 03:12:16 ity of [facility] 2021-07-26 Emergency [facility] [id number] Univers 04:35:53 ity of [facility] 2021-07-24 Emergency [facility] [id number] Univers 12:09:16 ity of [facility] 2021-07-24 Outpatient P [facility] JENNI [id number] Univers 12:09:16 ity [facility] 2021-10-31 2021-10-31 Outpatient R ABDELRAHMAN GREY [facility] [id number] Univers 10:30:00 10:30:00 [id number] ity [facility] 2021-07-08 2021-07-08 Telephone FERMIN Soni [id number] Univers 00:00:00 00:00:00 Gretel LEMUS [id number] it y of [facility] [id number] Kp as [id number] [place] [address] Branch 2021-07-07 2021-07-07 Urgent [facility] [id number] Univers 17:09:41 18:04:40 Care [facility] [id number] i ty of [place] [id number] Kp as Bill?Blea [phone] Vt carlos manuel magallanes [address] [place] [address] Medical Office Building 2021-07-07 2021-07-07 [facility] [id number] Univers 17:00:00 18:04:40 NETTIE gonzales o f [facility] 2021-07-07 2021-07-07 Outpatient [facility] [id number] Univers 17:00:00 17:00:00 [id number] [facility] 2021-02-28 2021-02-28 Outpatient [facility] [id number] Univers 11:00:00 11:00:00 [id number] [facility] 2021-02-28 2021-02-28 Outpatient Anthony JOSELIN, [facility] [id number] Univers 11:00:00 11:00:00 JENNIE [facility] 2021-02-27 2021-02-27 Outpatient [facility] [id number] Univers 11:00:00 11:00:00 [id number] [facility] 2020-11-28 2020-11-[address] [facility] [id number] 11:52:00 14:05:00 Jozef Grigsby [id number] [place] [id number] [place] [id number] 2020-11-28 2020-11-28 Orders Doctor CHRISTENSEN [id number] 00:00:00 00:00:00 Only Unassigned, MARIAH [id number] Amado [facility] [id number] [id number] 2020-08-06 2020-08-06 [facility] [id number] 21:07:00 22:02:00 Dread Grigsby [id number] [place] [id number] [place] [id number] 2020-08-06 2020-08-06 Orders Doctor CHRISTENSEN [id number] 00:00:00 00:00:00 Only UnassignedMARIAH [id number] [place] [address]686 [id number] 2020-06-27 2020-06-27 [facility] [id number] Univers 13:30:00 13:30:00 RIMMA [facility] 2020-06-27 2020-06-27 [facility] [id number] Univers 13:30:00 13:30:00 RIMMA gonzales [facility] 2020-03-28 2020-03-28 Outpatient R ABDELRAHMAN GREY [facility] [id number] Univers 13:30:00 13:30:00 ity [facility] 2020-03-28 2020-03-28 Outpatient R ABDELRAHMAN GREY [facility] [id number] Univers 13:30:00 13:30:00 ity [facility] 2019-12-27 2019-12-27 Outpatient R KAMRAN [facility] [id number] Univers 13:00:00 13:00:00 RIMMA rae [facility] 2019-12-27 2019-12-27 Telemedici [facility] [id number] 08:34:05 08:49:05 ne Visit Rimma Grigsby [id number] [place] [id number] Professio [id number] [address] 2019-11-28 2019-11-29 [facility] Vanessa Chen Jorge A [facility] .[id number] 07:13:02 16:05:00 Encounter Abdelrahman Grey Seb [id number] [place] [id number] [place] [id number] 2019-11-29 2019-11-29 Outpatient R ABDELRAHMAN GREY [facility] [id number] [facility]20 [facility] 13:30:00 13:30:[facility] 2019-11-29 2019-11-29 Outpatient R ABDELRAHMAN GREY [facility] [id number] Univers 13:30:00 13:30:00 [facility] 2019-11-22 2019-11-22 Routine Kamran [facility] [id number] 12:56:24 16:32:07 Rimma Grigsby [id number] Visit [place] [id number] Professio [id number] [address] 2019-11-22 2019-11-22 Outpatient R KAMRAN [facility] [id number] Univers 16:00:00 16:00:00 RIMMA [facility] 2019-11-16 2019-11-16 Outpatient P ABDELRAHMAN GREY [facility] JENNI [id number] Univers 15:08:00 19:25:00 [facility] Results Test Description Test Time Test Comments Results Result Comments Source POCT GRP A STREP (MOLECULAR) 2021-07-07 22:43:00 Test Item Value Reference Range Interpretation Comme nts POCT GP A STREP (test code = neg Negative - Negative 55402-8) KASSANDRA (test code = KASSANDRA) accurate development and interpretation of all internal controls Lab Interpretation (test code = Normal 46895-5) [facility]
[2021-10-19 22:30] LABS: SARS-COV-2 RT PCR POSITIVE (NEGATIVE)
[2021-10-19] MEDS ORDERED: ACETAMINOPHEN 500 MG TAB ONE (22:53)
--- NOTE | 2021-10-19 23:51 | ER ---
Nurse's Notes [facility] Name: Zacarias Thomson Age: 26 yrs Sex: Female : 1995 Arrival Date: 10/19/2021 Time: 21:16 Bed 19 Private MD: Diagnosis: Coronavirus infection, unspecified Presentation: 10/19 21:18 Chief complaint: Patient states: Pt thinks she has COVID. C/O fever, SOB, body aches, ld1 cough, chills and sore throat. Coronavirus screen: Client presents with at least one sign or symptom that may indicate coronavirus-19. Standard/surgical mask placed on the client. Ebola Screen: No symptoms or risks identified at this time. Initial Sepsis Screen: Does the patient meet any 2 criteria? No. Patient's initial sepsis screen is negative. Does the patient have a suspected source of infection? No. Patient's initial sepsis screen is negative. Risk Assessment: Do you want to hurt yourself or someone else? Patient reports no desire to harm self or others. Onset of symptoms was October 19, 2021. 21:18 Method Of Arrival: Ambulatory ld1 21:18 Acuity: ADALBERTO 4 ld1 Triage Assessment: 21:19 General: Appears in no apparent distress. comfortable, Behavior is calm, cooperative, ld1 appropriate for age. Pain: Denies pain. Neuro: Level of Consciousness is awake, alert, obeys commands, Oriented to person, place, time, situation. Respiratory: Airway is patent Respiratory effort is even, unlabored, Respiratory pattern is regular, symmetrical. 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 - Social history:: Smoking status: Patient denies any tobacco usage or history of. Patient/guardian denies using alcohol. Screenin:43 Abuse screen: Denies threats or abuse. Nutritional screening: No deficits noted. sv1 Tuberculosis screening: No symptoms or risk factors identified. Fall Risk None identified. Vital Signs: 21:18 BP 152 / 89; Pulse 126; Resp 20; Temp 99.9(O); Pulse Ox 99% on R/A; Weight 150 kg; ld1 Height 5 ft. 4 in. (162.56 cm); Pain 0/10; 21:43 BP 111 / 79 RA Sitting; Pulse 111 MON; Resp 16 S; Temp 98.4; Pulse Ox 98% on R/A; Pain sv1 7/10; 23:56 BP 110 / 76; Pulse 98; Resp 17 S; Pulse Ox 99% on R/A; Pain 0/10; lg3 21:18 Body Mass Index 56.76 (150.00 kg, 162.56 cm) ld1 ED Course: 21:16 Patient arrived in ED. ja2 21:19 Triage completed. ld1 21:19 Arm band placed on right wrist. ld1 21:32 Leonardo Ryan NP is PHCP. pm1 21:32 Conrado French MD is Attending Physician. pm1 21:35 Aden Collazo, PILI is Primary Nurse. sv1 21:36 Strep Sent. sv1 21:36 COVID-19/FLU A+B (Document "Date of Onset" if Symptomatic) Sent. sv1 21:43 Patient has correct armband on for positive identification. Bed in low position. Call sv1 light in reach. Side rails up X 1. 23:10 Chest Pa And Lat (2 Views) XRAY In Process Unspecified. EDMS 23:57 No provider procedures requiring assistance completed. Patient did not have IV access lg3 during this emergency room visit. Administered Medications: 22:32 Drug: Tussionex Pennkinetic ER (chlorpheniramine-hydrocodone) Suspension 5 ml Route: PO;vc1 22:52 Follow up: Response: No adverse reaction lg3 22:32 Drug: Albuterol 5 mg Route: Inhalation; vc1 22:55 Drug: Tylenol 1000 mg Route: PO; lg3 22:56 Follow up: Response: No adverse reaction lg3 Outcome: 23:50 Discharge ordered by . pm1 23:57 Discharged to home ambulatory. lg3 23:57 Condition: stable 23:57 Discharge instructions given to patient, Instructed on discharge instructions, follow up and referral plans. medication usage, Prescriptions given X 3. 23:58 Patient left the ED. lg3 Signatures: Dispatcher [employer] EDMS Leonardo Ryan, SIMRAN OFFICE MACHINE EMBOSSOGRAPH OPERATOR pm1 Kristina Almaraz RN RN lg3 Kristen Wang RN RN ld1 Elizabeth Muhammad Steven, RN RN sv1 Patience Pires RN RN vc1
--- NOTE | 2021-10-19 23:51 | EDPHYS ---
Physician Documentation [facility] Name: Zacarias Thomson Age: 26 yrs Sex: Female : 1995 Arrival Date: 10/19/2021 Time: 21:16 Bed 19 Private MD: ED Physician Conrado French HPI: 10/19 22:04 This 26 yrs old Female presents to ER via Ambulatory with complaints of pm1 Headache, Fever, Shortness Of Breath, Sore Throat, Cough. 22:04 The patient or guardian reports cough. Onset: The symptoms/episode began/occurred pm1 yesterday. Severity of symptoms: in the emergency department the symptoms are unchanged. Modifying factors: The symptoms are alleviated by nothing, the symptoms are aggravated by nothing. Associated signs and symptoms: Pertinent positives: fever, sore throat, shortness of breath, Pertinent negatives: chest pain, diarrhea, vomiting. The patient has experienced a previous episode, Patient had covid last year. The patient has not recently seen a physician. 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 - Social history:: Smoking status: Patient denies any tobacco usage or history of. Patient/guardian denies using alcohol. ROS: 22:04 Eyes: Negative for injury, pain, redness, and discharge. pm1 22:04 Cardiovascular: Negative for chest pain, palpitations, and edema. 22:04 Abdomen/GI: Negative for abdominal pain, nausea, vomiting, diarrhea, and constipation, Back: Negative for injury and pain, MS/Extremity: Negative for injury and deformity, Skin: Negative for injury, rash, and discoloration. 22:04 Constitutional: Positive for body aches, fever, Negative for poor PO intake. 22:04 ENT: Positive for sore throat, Negative for ear pain. 22:04 Respiratory: Positive for cough, shortness of breath. 22:04 Neuro: Positive for headache, Negative for numbness, tingling, weakness. 22:04 All other systems are negative. pm1 Exam: 22:04 Constitutional: This is a well developed, well nourished patient who is awake, alert, pm1 and in no acute distress. Head/Face: Normocephalic, atraumatic. 22:04 Back: No spinal tenderness. No costovertebral tenderness. Full range of motion. Skin: Warm, dry with normal turgor. Normal color with no rashes, no lesions, and no evidence of cellulitis. MS/ Extremity: Pulses equal, no cyanosis. Neurovascular intact. Full, normal range of motion. 22:04 Eyes: Exam is negative for acute changes, Periorbital structures: appear normal, Extraocular movements: no acute changes, Conjunctiva: no acute changes, no injection, Sclera: no acute changes, icterus, is not appreciated. 22:04 ENT: Exam is negative for acute changes, External ear(s): no acute changes, Ear canal(s): no acute changes, TM's: no acute changes, Mouth: no acute changes, Lips: normal, moist, Oral mucosa: normal, pink and intact, moist, Posterior pharynx: no acute changes, Airway: no evidence of obstruction, Tonsils: are normal in appearance. 22:04 Cardiovascular: Rate: tachycardic, Rhythm: regular, Pulses: no pulse deficits are appreciated. 22:04 Respiratory: Exam negative for acute changes, respiratory distress, shortness of breath, Breath sounds: are clear throughout. 22:04 Abdomen/GI: Exam negative for acute changes, Inspection: obese Palpation: abdomen is soft and non-tender, in all quadrants. 22:04 Neuro: Exam negative for acute changes, Orientation: is normal, Mentation: is normal, Motor: is normal, moves all fours. Vital Signs: 21:18 BP 152 / 89; Pulse 126; Resp 20; Temp 99.9(O); Pulse Ox 99% on R/A; Weight 150 kg; ld1 Height 5 ft. 4 in. (162.56 cm); Pain 0/10; 21:43 BP 111 / 79 RA Sitting; Pulse 111 MON; Resp 16 S; Temp 98.4; Pulse Ox 98% on R/A; Pain sv1 7/10; 23:56 BP 110 / 76; Pulse 98; Resp 17 S; Pulse Ox 99% on R/A; Pain 0/10; lg3 21:18 Body Mass Index 56.76 (150.00 kg, 162.56 cm) ld1 MDM: 21:36 Patient medically screened. pm1 23:14 Data reviewed: vital signs. Data interpreted: Pulse oximetry: on room air is 98 %. pm1 Interpretation: normal. 23:50 Counseling: I had a detailed discussion with the patient and/or guardian regarding: the pm1 historical points, exam findings, and any diagnostic results supporting the discharge/admit diagnosis, lab results, radiology results, the need for outpatient follow up, to return to the emergency department if symptoms worsen or persist or if there are any questions or concerns that arise at home. 23:58 ED course: [place] reviewed. pm1 10/19 21:30 Order name: COVID-19/FLU A+B (Document "Date of Onset" if Symptomatic); Complete Time: vc1 22:43 10/19 21:30 Order name: Strep; Complete Time: 22:10 vc1 10/19 22:04 Order name: Chest Pa And Lat (2 Views) XRAY pm1 10/19 22:10 Order name: Throat Culture EDMS Administered Medications: 22:32 Drug: Tussionex Pennkinetic ER (chlorpheniramine-hydrocodone) Suspension 5 ml Route: PO;vc1 22:52 Follow up: Response: No adverse reaction lg3 22:32 Drug: Albuterol 5 mg Route: Inhalation; vc1 22:55 Drug: Tylenol 1000 mg Route: PO; lg3 22:56 Follow up: Response: No adverse reaction lg3 Disposition: 10/20 00:35 Co-signature as Attending Physician, Conardo French MD. pkl Disposition Summary: 10/19/21 23:50 Discharge Ordered Location: Home pm1 Problem: new pm1 Symptoms: have improved pm1 Condition: Stable pm1 Diagnosis - Coronavirus infection, unspecified pm1 Followup: pm1 - With: Emergency Department - When: As needed - Reason: Worsening of condition Followup: pm1 - With: Private Physician - When: 2 - 3 days - Reason: Recheck today's complaints, Continuance of care, Re-evaluation by your physician Discharge Instructions: - Discharge Summary Sheet pm1 - COVID-19 pm1 - COVID-19 Frequently Asked Questions pm1 - 10 Things You Can Do to Manage Your COVID-19 Symptoms at Home - [facility] pm1 - COVID-19: Quarantine vs. Isolation - [facility] pm1 Forms: - Medication Reconciliation Form pm1 - Thank You Letter pm1 - Antibiotic Education pm1 - Prescription Opioid Use pm1 Prescriptions: - Prednisone 20 mg Oral Tablet - take 3 tablets by ORAL route once daily for 5 days; 15 tablet; Refills: 0, pm1 Product Selection Permitted - Guaifenesin AC 10-100 mg/5 mL Oral Liquid - take 10 milliliters by ORAL route every 4 hours As needed; 240 milliliter; pm1 Refills: 0, Product Selection Permitted - Albuterol Sulfate 2.5 mg /3 mL (0.083 %) Inhalation Solution for Nebulization - inhale 1 unit by NEBULIZATION route every 8 hours As needed; 1 box; Refills: 0, pm1 Product Selection Permitted Signatures: Dispatcher [employer] EDHI Conrado French MD MD pkl Leonardo Ryan, MANAGER GARDEN MANAGER GARDEN pm1 Kristina Almaraz RN RN lg3 Kristen Wang RN RN ld1 Patience Pires RN RN vc1
[2021-10-20 05:09] VITALS: TEMP 98.4
[2021-10-20 05:10] VITALS: BP 110/76; O2SAT 99
--- NOTE | 2021-10-20 08:31 | RAD REPORT ---
EXAM DESCRIPTION: RAD - Chest Pa And Lat (2 Views) - 10/19/2021 11:10 pm CLINICAL HISTORY: Cough;SOB COMPARISON: Chest Single View dated 10/12/2021; Chest Single View dated 11/30/2020; Chest Single View d ated 01/14/2018; CHEST SINGLE VIEW dated 12/22/2014 FINDINGS: Lines: None. Lungs: No evidence of edema or pneumonia. Linear atelectasis in the right upper lung and left lung ba se. Pleural: No significant pleural effusions or pneumothorax. Cardiac: The heart size is within normal limits. Bones: No acute fractures. Other: IMPRESSION: No acute cardiopulmonary disease.
== END 2021-10-19 23:58 | disposition home or self-care (01) ==
LOC: ER 21:11
DX: U07.1 COVID-19 (principal); Z88.2 Allergy status to sulfonamides
CPT/HCPCS: 87070; 87081; 0240U; 71046; 99284

== ENCOUNTER 2024-01-17 16:56 | Emergency (ER) | payer SELFPAY ==
--- OUTSIDE RECORDS SUMMARY | 2024-01-17 17:00 | XMS REPORT | Continuity of Care Document ---
Author Name Unknown Address [address] [facility] [address] [place] [address] [facility] heal[facility] Address [address] [facility] [place] [address] Care Team Providers Care Director Cost Name Role Phone CASILLAS ELIECER GUILLAUME Primary Care Physician Rafat Zuluaga Attending Clinician Unavailable MAX SCOTT Attending Clinician Jaycee Briggs, Ang - Brady Attending Clinician Unavailable Unknown, Attending Attending Clinician Unavailab Max White Attending Clinician + [phone] DORIAN WOMACK Attending Clinician Unavailable Dorian Womack MD Attending Clinician [phone] Doctor Unassigned, [place] Attending Clinician U Marques Rivera Attending Clinician Unavailable Marques Mcgarry Attending Clinician [phone] UNKNOWN, ATTENDING Attending Clinician Unavailab Zulma Mtz Attending Clinician [phone] ZULMA PALM Attending Clinician Unavailable Nettie Post Attending Clinician [phone] NETTIE GARVIN Attending Clinician Unavailabl e Provider, [facility] Attending Clinician Unavailable ABDELRAHMAN GREY Attending Clinician Unavailable DOROTHY LAUREANO Attending Clinician Unavailable Gretel Soni RN Attending Clinician Unavailable JENNIE OLIVERA Attending Clinician Unavailable Jozef Gunderson DO Attending Clinician [phone] Dread Feliciano MD Attending Clinician [phone] RIMMA ANDREW Attending Clinician Unavailable Rimma Andrew PA-C Attending Clinician [phone] Vanessa Chen MD Attending Clinician [phone] Abdelrahman Grey MD Attending Clinician [phone] VANESSA CHEN Admitting Clinician Unavailable Marques BARBOSA Admitting Clinician Unavailable Abdelrahman Grey MD Admitting Clinician [phone] ABDELRAHMAN GREY Admitting Clinician Unavailable Payers Payer Name Policy Type Policy Number Effective Date Expirati on Date Source [facility] [id number] 00:00:00 [employer] [id number] 2020 00:00:00 Problems Condition Name Condition Details Condition Category Status Onset Date Resolution Date Last Treatment Date Treating Clinician Comments Source Tobacco use disorder Tobacco use disorder Disease Active 2017-09 00:00: 00 General acute hospital BMI 50.0-59.9, adult BMI 50.0-59.9, adult Disease Active 2017-09 00:00: 00 General acute hospital [id number] Obesity, morbid, BMI 50 or higher Problem [facility] [id number] Severe episode of recurrent major depressive disorder, without psychotic features Problem [facility] [id number] Raised intraocula r pressure, unspecifie d laterality Problem [facility] [id number] Chronic fatigue Problem [facility] [id number] Pseudotumo r cerebri Problem [facility] [id number] Essential hypertensi on Problem [facility] Allergies, Adverse Reactions, Alerts Allergy Name Allergy Type Status Severity Reaction(s) Onset Date Inactive Date Treating Clinician Comments Source SULFA (SULFONA MIDE ANTIBIOT ICS) Drug Class Active Rash 04-07 00:00: 00 General acute hospital Sulfa (Sulfona mide Antibiot ics) Propensi ty to adverse reaction s Active Rash 04-07 00:00: 00 General acute hospital Sulfa (Sulfona mide Antibiot ics) Propensi ty to adverse reaction s Active Rash 04-07 00:00: 00 General acute hospital Substanc e with sulfonam kiarra structur e and antibact erial mechanis m of action (substan ce) Substanc e with sulfonam kiarra structur e and antibact erial mechanis m of action (substan ce) Active Unknown [facility] Social History Social Habit Start Date Stop Date Quantity Comments Source Sexual orientation U [facility] History of Tobacco Use [facility] Sex Assigned At [facility] Alcohol intake 2024-01-11 00:00:00 2024-01-11 00:00:00 Current non-drinker of alcohol (finding) [facility] Exposure to SARS-CoV-2 (event) 2022-08-28 00:00:00 2022-09-07 17:32:00 Not sure [facility] Cigarettes smoked current (pack per day) - Reported 2022-09-07 00:00:00 2022-09-07 00:00:00 [facility] Cigarette pack-years 2022-09-07 00:00:00 2022-09-07 00:00:00 [facility] Tobacco use and exposure 2022-09-07 00:00:00 2022-09-07 00:00:00 Smokeless tobacco non-user [facility] Tobacco Comment 2022-09-07 00:00:00 2022-09-07 00:00:00 patient states she quit 2 months ago [facility] History of Social function 2022-07-28 00:00:00 2022-07-28 00:00:00 [facility] Smoking Status Start Date Stop Date Source Never Smoker [facility] Ex-smoker 2022-09-07 00:00:00 2022-09-07 00:00:00 [facility] Medications Ordered Medication Name Filled Medication Name Start Date Stop Date Current Medication? Ordering Clinician Indication Dosage Frequency Signature (SIG) Comments Components Source predniSONE 20 mg tablet 01-10 00:00: 00 01-16 04:59 :00 Yes [id number] 20mg Take 1 tablet by mouth in the morning for 5 days. General acute hospital maalox/diph enhydrAMINE :lidocaine2 % viscous 1:1:1 Susp suspension 01-01 00:00: 00 Yes [id number] 5mL Take 5 mL by mouth 3 (three) times daily as needed (gargle and spit). General acute hospital bromphenira mine-pseudo ephedrine-D M (BROMFED DM) 2-30-10 mg/5 mL syrup 01-01 00:00: 00 Yes [id number] 10mL Take 10 mL by mouth 4 (four) times daily as needed for Cold symptoms or Cough. General acute hospital ibuprofen 600 mg tablet 01-01 00:00: 00 Yes [id number] 600mg Take 1 tablet by mouth every 6 (six) hours as needed for Pain (scale 1-3) or Pain (scale 4-6). General acute hospital ondansetron 4 mg disintegrat ing tablet 01-01 00:00: 00 Yes [id number] 4mg Take 1 tablet by mouth every 12 (twelve) hours as needed for Nausea and Vomiting (N/V). General acute hospital Clindamycin Phosphate 1 % Clindamycin Phosphate 1 % 12-13 00:00: 00 No 1{appli cation} QD Clindamyci n Phosphate 1 % Sertraline HCl 50 MG Sertraline HCl 50 MG 12-13 00:00: 00 No 1{table t} QD Sertraline HCl 50 MG Topiramate 25 MG Topiramate 25 MG 12-13 00:00: 00 No 1{table t} BID Topiramate 25 MG acetaZOLAMI DE 250 MG acetaZOLAMI DE 250 MG 11-18 00:00: 00 No 1{table t} BID acetaZOLAM KIARRA 250 MG Escitalopra m Oxalate 10 MG Escitalopra m Oxalate 10 MG 11-18 00:00: 00 No 1{table t} QD Escitalopr am Oxalate 10 MG Lisinopril 10 MG Lisinopril 10 MG 11-18 00:00: 00 No 1{table t} QD Lisinopril 10 MG ibuprofen (IBU) tablet 600 mg 04-04 02:15: 00 04-04 02:36 :00 No 600mg 600 mg, Oral, ONCE, 1 dose, On 04/03/23 at 2115, MAEGAN General acute hospital ibuprofen 600 mg tablet 04-03 00:00: 00 01-01 00:00 :00 No [id number] 600mg Take 1 tablet by mouth every 6 (six) hours as needed for Pain (scale 4-6). General acute hospital erythromyci n 5 mg/gram (0.5 %) ophthalmic ointment 2021-09 00:00: 00 09-15 05:59 :00 No [id number] .5[in_u s] Place 0.5 Inches in both eyes 4 (four) times daily for 7 days. General acute hospital amoxicillin -clavulanat e (AUGMENTIN) 875-125 mg per tablet 02-11 00:00: 00 02-22 04:59 :00 No [id number] 1{tbl} Take 1 tablet by mouth 2 (two) times daily for 10 days. General acute hospital albuterol 90 mcg/actuati on inhaler 02-02 00:00: 00 Yes [id number] 2{puff} Inhale 2 Puffs every 6 (six) hours as needed for Wheezing, Shortness of Breath or Chest tightness. General acute hospital bromphenira mine-pseudo ephedrine-D M (BROMFED DM) 2-30-10 mg/5 mL syrup 02-02 00:00: 00 01-01 00:00 :00 No [id number] 5mL Take 5 mL by mouth 4 (four) times daily as needed for Congestion /Allergies or Cough. General acute hospital vit calc,iron,f olic ( VITAMIN ORAL) 2020-09 011 17:22: 09 Yes Take by mouth. General acute hospital ondansetron 4 mg disintegrat ing tablet 11-28 00:00: 00 01-01 00:00 :00 No [id number] 4mg Take 1 tablet by mouth every 8 (eight) hours as needed for Nausea and Vomiting (N/V). General acute hospital mupirocin 2 % ointment 2019-09 00:00: 00 Yes [id number] Apply to area(s) 3 (three) times daily. General acute hospital vitamin w/FA tablet 11-28 00:00: 00 Yes [id number] 102 1{tbl} Take 1 tablet by mouth daily. General acute hospital docusate calcium 240 mg capsule 11-28 00:00: 00 Yes [id number] 102 240mg Take 1 capsule by mouth once daily as needed for Constipati on. General acute hospital ferrous sulfate 325 mg (65 mg iron) tablet 11-28 00:00: 00 Yes [id number] 102 325mg Take 1 tablet by mouth 2 (two) times daily. General acute hospital vitamin w/FA tablet 11-28 00:00: 00 Yes [id number] 102 1{tbl} Take 1 tablet by mouth daily. General acute hospital ibuprofen 600 mg tablet 11-28 00:00: 00 01-01 00:00 :00 No [id number] 102 600mg Take 1 tablet by mouth every 6 (six) hours as needed (Pain). Take with food or milk. General acute hospital FLUoxetine 40 mg capsule 10-06 00:00: 00 Yes [id number] 40mg Take 1 capsule by mouth daily. General acute hospital Lisinopril 10 MG Lisinopril 10 MG No Lisinopril 10 MG Escitalopra m Oxalate 10 MG Escitalopra m Oxalate 10 MG No Escitalopr am Oxalate 10 MG Immunizations Ordered Immunization Name Filled Immunization Name Date Status Comments Source TDAP (ADACEL) VACCINE 2019-10-02 00:00:00 Completed [facility] TDAP (ADACEL) VACCINE 2019-10-02 00:00:00 Completed [facility] TDAP (ADACEL) VACCINE 2019-10-02 00:00:00 Completed [facility] TDAP (ADACEL) VACCINE 2019-10-02 00:00:00 Completed [facility] TDAP (ADACEL) VACCINE 2019-10-02 00:00:00 Completed [facility] TDAP (ADACEL) VACCINE 2019-10-02 00:00:00 Completed [facility] TDAP (ADACEL) VACCINE 2019-10-02 00:00:00 Completed [facility] TDAP (ADACEL) VACCINE 2019-10-02 00:00:00 Completed [facility] TDAP (ADACEL) VACCINE 2019-10-02 00:00:00 Completed [facility] TDAP (ADACEL) VACCINE 2019-10-02 00:00:00 Completed [facility] TDAP (ADACEL) VACCINE 2019-10-02 00:00:00 Completed [facility] Influenza Virus Vaccine Quad .5 mL IM 6+ MO 2019-07-06 00:00:00 Completed [facility] Influenza Virus Vaccine Quad .5 mL IM 6+ MO 2019-07-06 00:00:00 Completed [facility] Influenza Virus Vaccine Quad .5 mL IM 6+ MO 2019-07-06 00:00:00 Completed [facility] Influenza Virus Vaccine Quad .5 mL IM 6+ MO 2019-07-06 00:00:00 Completed [facility] Influenza Virus Vaccine Quad .5 mL IM 6+ MO 2019-07-06 00:00:00 Completed [facility] Influenza Virus Vaccine Quad .5 mL IM 6+ MO 2019-07-06 00:00:00 Completed [facility] Influenza Virus Vaccine Quad .5 mL IM 6+ MO 2019-07-06 00:00:00 Completed [facility] Influenza Virus Vaccine Quad .5 mL IM 6+ MO 2019-07-06 00:00:00 Completed [facility] Influenza Virus Vaccine Quad .5 mL IM 6+ MO 2019-07-06 00:00:00 Completed [facility] Influenza Virus Vaccine Quad .5 mL IM 6+ MO 2019-07-06 00:00:00 Completed [facility] Influenza Virus Vaccine Quad .5 mL IM 6+ MO 2019-07-06 00:00:00 Completed [facility] Influenza Virus Vaccine Quad .5 mL IM 6+ MO (FLUZONE/FLULAVAL/F LUARIX) Unknown Completed [facility] TDAP (ADACEL) VACCINE Unknown Completed [facility] Influenza Virus Vaccine Quad .5 mL IM 6+ MO (FLUZONE/FLULAVAL/F LUARIX) Unknown Completed [facility] TDAP (ADACEL) VACCINE Unknown Completed [facility] Influenza Virus Vaccine Quad .5 mL IM 6+ MO (FLUZONE/FLULAVAL/F LUARIX) Unknown Completed [facility] TDAP (ADACEL) VACCINE Unknown Completed [facility] Influenza Virus Vaccine Quad .5 mL IM 6+ MO (FLUZONE/FLULAVAL/F LUARIX) Unknown Completed [facility] TDAP (ADACEL) VACCINE Unknown Completed [facility] Influenza Virus Vaccine Quad .5 mL IM 6+ MO (FLUZONE/FLULAVAL/F LUARIX) Unknown Completed [facility] TDAP (ADACEL) VACCINE Unknown Completed [facility] Vital Signs Vital Name Observation Time Observation Value Comments S ource Systolic blood pressure 2024-01-11 21:18:00 109 mm[Hg] [facility] Diastolic blood pressure 2024-01-11 21:18:00 73 mm[Hg] [facility] Heart rate 2024-01-11 21:18:00 83 /min [facility] Body temperature 2024-01-11 21:18:00 37.33 Marah [facility] Respiratory rate 2024-01-11 21:18:00 17 /min [facility] Body weight 2024-01-11 21:18:00 156.582 kg [facility] BMI 2024-01-11 21:18:00 59.25 kg/m2 [facility] Oxygen saturation in Arterial blood by Pulse oximetry 2024-01-11 21:18:00 97 /min [facility] Systolic blood pressure 2024-01-02 20:13:00 144 mm[Hg] on lisinopril [facility] Diastolic blood pressure 2024-01-02 20:13:00 84 mm[Hg] on lisinopril [facility] Heart rate 2024-01-02 20:13:00 90 /min [facility] Body temperature 2024-01-02 20:13:00 36.61 Marah [facility] Respiratory rate 2024-01-02 20:13:00 18 /min [facility] Body height 2024-01-02 20:13:00 162.6 cm [facility] Body weight 2024-01-02 20:13:00 156.604 kg [facility] BMI 2024-01-02 20:13:00 59.26 kg/m2 [facility] Oxygen saturation in Arterial blood by Pulse oximetry 2024-01-02 20:13:00 99 /min [facility] height 2023-12-14 10:40:00 65.0 [in_i] [facility] weight 2023-12-14 10:40:00 341 [lb_av] [facility] temperature 2023-12-14 10:40:00 97.2 [degF] [facility] bmi 2023-12-14 10:40:00 56.74 kg/m2 [facility] oximetry 2023-12-14 10:40:00 99 % [facility] respiratory rate 2023-12-14 10:40:00 16 /min [facility] blood pressure systolic 2023-12-14 10:40:00 107 mm[Hg] [facility] blood pressure diastolic 2023-12-14 10:40:00 57 mm[Hg] [facility] height 2023-11-18 11:00:00 65.0 [in_i] [facility] weight 2023-11-18 11:00:00 345 [lb_av] [facility] temperature 2023-11-18 11:00:00 97.3 [degF] [facility] bmi 2023-11-18 11:00:00 57.4 kg/m2 [facility] oximetry 2023-11-18 11:00:00 98 % [facility] blood pressure systolic 2023-11-18 11:00:00 157 mm[Hg] [facility] blood pressure diastolic 2023-11-18 11:00:00 89 mm[Hg] [facility] Systolic blood pressure 2023-04-04 01:23:00 150 mm[Hg] [facility] Diastolic blood pressure 2023-04-04 01:23:00 60 mm[Hg] [facility] Heart rate 2023-04-04 01:23:00 84 /min [facility] Body temperature 2023-04-04 01:21:00 37.22 Marah [facility] Respiratory rate 2023-04-04 01:21:00 20 /min [facility] Body height 2023-04-04 01:21:00 162.6 cm [facility] Body weight 2023-04-04 01:21:00 154.223 kg [facility] BMI 2023-04-04 01:21:00 58.36 kg/m2 [facility] Oxygen saturation in Arterial blood by Pulse oximetry 2023-04-04 01:21:00 98 /min [facility] Systolic blood pressure 2022-09-07 23:33:00 114 mm[Hg] [facility] Diastolic blood pressure 2022-09-07 23:33:00 79 mm[Hg] [facility] Heart rate 2022-09-07 23:33:00 87 /min [facility] Body temperature 2022-09-07 23:33:00 37.33 Marah [facility] Respiratory rate 2022-09-07 23:33:00 15 /min [facility] Body height 2022-09-07 23:33:00 162.6 cm [facility] Body weight 2022-09-07 23:33:00 153.86 kg [facility] BMI 2022-09-07 23:33:00 58.22 kg/m2 [facility] Oxygen saturation in Arterial blood by Pulse oximetry 2022-09-07 23:33:00 99 /min [facility] Systolic blood pressure 2022-07-28 19:27:00 135 mm[Hg] [facility] Diastolic blood pressure 2022-07-28 19:27:00 83 mm[Hg] [facility] Heart rate 2022-07-28 19:27:00 85 /min [facility] Body temperature 2022-07-28 19:27:00 37.11 Marah [facility] Respiratory rate 2022-07-28 19:27:00 14 /min [facility] Body height 2022-07-28 19:27:00 162.6 cm [facility] Body weight 2022-07-28 19:27:00 153.769 kg [facility] BMI 2022-07-28 19:27:00 58.19 kg/m2 [facility] Oxygen saturation in Arterial blood by Pulse oximetry 2022-07-28 19:27:00 99 /min [facility] Systolic blood pressure 2022-02-11 17:45:00 126 mm[Hg] [facility] Diastolic blood pressure 2022-02-11 17:45:00 82 mm[Hg] [facility] Heart rate 2022-02-11 17:45:00 96 /min [facility] Body temperature 2022-02-11 17:45:00 36.83 Marah [facility] Respiratory rate 2022-02-11 17:45:00 17 /min [facility] Body height 2022-02-11 17:45:00 162.6 cm [facility] Body weight 2022-02-11 17:45:00 151.048 kg [facility] BMI 2022-02-11 17:45:00 57.16 kg/m2 [facility] Oxygen saturation in Arterial blood by Pulse oximetry 2022-02-11 17:45:00 98 /min [facility] Systolic blood pressure 2022-02-03 01:34:00 134 mm[Hg] [facility] Diastolic blood pressure 2022-02-03 01:34:00 78 mm[Hg] [facility] Heart rate 2022-02-03 01:34:00 114 /min [facility] Body temperature 2022-02-03 01:34:00 39.5 Marah [facility] Respiratory rate 2022-02-03 01:34:00 18 /min [facility] Body height 2022-02-03 01:34:00 162.6 cm [facility] Body weight 2022-02-03 01:34:00 153.769 kg [facility] BMI 2022-02-03 01:34:00 58.19 kg/m2 [facility] Oxygen saturation in Arterial blood by Pulse oximetry 2022-02-03 01:34:00 97 /min [facility] Systolic blood pressure 2021-07-07 22:21:00 128 mm[Hg] [facility] Diastolic blood pressure 2021-07-07 22:21:00 80 mm[Hg] [facility] Heart rate 2021-07-07 22:21:00 98 /min [facility] Body temperature 2021-07-07 22:21:00 36.89 Marah [facility] Respiratory rate 2021-07-07 22:21:00 16 /min [facility] Body weight 2021-07-07 22:21:00 159.213 kg [facility] BMI 2021-07-07 22:21:00 60.25 kg/m2 [facility] Oxygen saturation in Arterial blood by Pulse oximetry 2021-07-07 22:21:00 96 /min [facility] Procedures Procedure Date / Time Performed Performing Clinicia n Source POCT SARS-COV-2 ANTIGEN (BINAX NOW) 2024-01-02 21:03:00 Dorian Womack [facility] POCT MOLECULAR STREP 2024-01-02 20:12:00 Unknown, Atte raheem [facility] XR FOOT 3+ VW LEFT 2023-04-04 02:39:00 Marques Barbosa [facility] NOTICE OF PRIVACY PRACTICES 2023-04-04 01:11:56 Doctor Unassigned, [place] [facility] CONSENT/REFUSAL FOR DIAGNOSIS AND TREATMENT 2023-04-04 01:10:25 Doctor Unassigned, [place] [facility] POCT MOLECULAR FLU 2022-07-28 19:38:00 Unknown, Attend ing [facility] ASSIGNMENT OF BENEFITS 2022-07-28 19:24:35 Docto r Unassigned, [place] [facility] POCT MOLECULAR FLU 2022-02-03 01:36:00 Unknown, Attend ing [facility] POCT MOLECULAR STREP 2022-02-03 01:33:00 Unknown, Atte nding [facility] POCT GRP A STREP (MOLECULAR) 2021-07-07 22:33:00 Nettie Garvin [facility] Encounters Start Date/Time End Date/Time Encounter Type Admission Type Attending [facility] Care Facility Care Department Encounter ID Source 2024-01-13 08:50:01 Outpatient Rafat Arriola [facility] [id number] [facility] 2023-11-18 10:14:01 Outpatient Rafat Arriola [facility] [id number] [facility] 2021-07-27 03:12:16 Emergency [facility] [id number] General acute hospital 2021-07-26 04:35:53 Emergency [facility] [id number] General acute hospital 2021-07-24 12:09:16 Emergency [facility] [id number] General acute hospital 2021-07-24 12:09:16 Outpatient P [facility] [id number] General acute hospital 2024-01-11 16:45:00 2024-01-11 17:14:12 Outpatient MAX MI [facility] [id number] General acute hospital 2024-01-11 16:45:00 2024-01-11 17:00:00 Employee Relations Representative Visit Lab, Ang - Brady Unknown, Attending [facility] [id number] General acute hospital 2024-01-11 16:00:00 2024-01-11 16:38:34 Urgent Care Max Scott Unknown, Attending [facility] 1..840.114 [id number] [id number] [id number] General acute hospital 2024-01-02 15:00:00 2024-01-02 16:07:06 Outpatient R DORIAN WOMACK [facility] [id number] General acute hospital 2024-01-02 15:00:00 2024-01-02 16:07:06 Urgent Care VuDorian Unknown, Attending [facility] 1..840.114 350.1.13.10 [id number] [id number] General acute hospital 2023-12-14 00:00:00 2023-12-14 00:00:00 OFFICE VISIT ESTAB PT LEVEL 4 [facility] [id number] [facility] 2023-11-18 00:00:00 2023-11-18 00:00:00 OFFICE VISIT NEW PT LEVEL 4 [facility] [id number] [facility] 2023-09-17 00:00:00 2023-09-17 00:00:00 Patient Secure Msg Doctor Unassigned, [place] [facility] 1..840.114 350.1.13.10 [id number] [id number] General acute hospital 2023-04-05 00:00:00 2023-04-05 00:00:00 Patient Secure Msg Doctor Unassigned, [place] [facility] 1..840.114 350.1.13.10 [id number] [id number] General acute hospital 2023-04-03 20:28:00 2023-04-03 22:27:00 Emergency X Marques [facility]A [facility] ERT [id number] General acute hospital 2023-04-03 20:28:00 2023-04-03 22:27:00 Emergency Marques Barbosa [facility] [id number] [id number] [id number] [id number] General acute hospital 2023-04-03 00:00:00 2023-04-03 00:00:00 Orders Only Doctor Unassigned, [place] [facility] 1.2840.114 350.1.13.10 4.2.7.2.686 [id number] General acute hospital 2022-11-16 10:31:38 2022-11-16 10:31:38 Outpatient SFA [facility] [id number] Wicho Miguel 2022-11-01 19:45:00 2022-11-01 19:45:00 Outpatient R UNKNOWN, ATTENDING [facility] [id number] General acute hospital 2022-09-07 18:20:00 2022-09-07 18:20:00 Outpatient R UNKNOWN, ATTENDING [facility] [id number] General acute hospital 2022-09-07 17:40:00 2022-09-07 18:00:00 Urgent Care Zulma Palm Unknown, Attending [facility] 1.840.114 350.1.13.10 4.2.7.2.686 [id number] General acute hospital 2022-09-07 17:40:00 2022-09-07 17:40:00 Outpatient R ZULMA PALM [facility] [id number] General acute hospital 2022-09-07 17:20:00 2022-09-07 17:20:00 Outpatient R UNKNOWN, ATTENDING [facility] [id number] General acute hospital 2022-09-07 00:00:00 2022-09-07 00:00:00 Letter (Out) Zulma Palm [facility] 1..840.114 350.1.13.10 4.2.7.2.686 [id number] General acute hospital 2022-07-28 14:20:00 2022-07-28 14:58:02 Urgent Care Nettie Garvin Unknown, Attending [facility] 1.2.840.114 350.1.13.10 4.2.7.2.686 [id number] General acute hospital 2022-07-28 14:20:00 2022-07-28 14:58:02 Outpatient R NETTIE GARVIN [facility] [id number] General acute hospital 2022-07-28 00:00:00 2022-07-28 00:00:00 Orders Only Doctor Unassigned, [place] [facility] 1.2.840.114 350.1.13.10 4.2.7.2.686 [id number] General acute hospital 2022-07-28 00:00:00 2022-07-28 00:00:00 Letter (Out) Mono Garviny [facility] 1.2.840.114 350.1.13.10 4.2.7.2.686 [id number] General acute hospital 2022-02-11 13:00:00 2022-02-11 13:00:00 Urgent Care Vu [facility] 1.2.840.114 350.1.13.10 4.2.7.2.686 [id number] General acute hospital 2022-02-11 13:00:00 2022-02-11 12:53:38 Outpatient DORIAN ERNST [facility] [id number] General acute hospital 2022-02-02 20:45:00 2022-02-02 20:49:03 Outpatient DORIAN ERNST [facility] [id number] General acute hospital 2022-02-02 20:45:00 2022-02-02 20:49:03 Urgent Care Provider, Jose Abreu Urgent Care Unknown, Attending [facility] 1..840.114 350.1.13.10 4.2.7.2.686 [id number] General acute hospital 2021-11-26 14:00:00 2021-11-26 14:00:00 Outpatient ABDELRAHMAN HIGGINS [facility] [id number] General acute hospital 2021-11-21 18:00:00 2021-11-21 18:19:39 Outpatient R DOROTHY LAUREANO [facility] [id number] General acute hospital 2021-11-20 10:00:00 2021-11-20 10:00:00 Outpatient ABDELRAHMAN HIGGINS [facility] [id number] General acute hospital 2021-10-31 10:30:00 2021-10-31 10:30:00 Outpatient Anthony [facility] [id number] General acute hospital 2021-07-08 00:00:00 2021-07-08 00:00:00 Telephone Gretel Soni [facility] 1.840.114 350.1.13.10 4.2.7.2.686 [id number] General acute hospital 2021-07-07 17:09:41 2021-07-07 18:04:40 [facility] 1..840.114 350.1.13.10 4.2.7.2.686 [id number] General acute hospital 2021-07-07 17:00:00 2021-07-07 18:04:40 Out[facility] R [id number] General acute hospital 2021-07-07 00:00:00 2021-07-07 00:00:00 Orders Only Doctor Unassigned, [place] [facility] 1.840.114 350.1.13.10 4.2.7.2.686 [id number] General acute hospital 2021-02-28 11:00:00 2021-02-28 11:00:00 Outpatient Anthony VENEGASJENNIE ZEE [facility] [id number] General acute hospital 2020-11-28 11:52:00 2020-11-28 14:05:00 Emergency Jozef Gunderson [facility] 1.2.840.114 350.1.13.10 4.2.7.2.686 [id number] 2020-11-28 00:00:00 2020-11-28 00:00:00 Orders Only Doctor Unassigned, [place] [facility] 1.2.840.114 350.1.13.10 4.2.7.2.686 [id number] 2020-08-06 21:07:00 2020-08-06 22:02:00 Emergency FelicianoDread [facility] 1.2.840.114 350.1.13.10 4.2.7.2.686 [id number] 2020-08-06 00:00:00 2020-08-06 00:00:00 Orders Only Doctor Unassigned, [place] [facility] 1.2.840.114 350.1.13.10 4.2.7.2.686 [id number] 2020-06-27 13:30:00 2020-06-27 13:30:00 Outpatient RIMMA JOHNSON [facility] [id number] General acute hospital 2020-03-28 13:30:00 2020-03-28 13:30:00 Outpatient ABDELRAHMAN HIGGINS [facility] [id number] General acute hospital 2019-12-27 13:00:00 2019-12-27 13:00:00 Outpatient RIMMA JOHNSON [facility] [id number] General acute hospital 2019-12-27 08:34:05 2019-12-27 08:49:05 Telemedici ne Visit [facility] 1.2.840.114 350.1.13.10 4.2.7.2.686 [id number] 2019-11-28 07:13:02 2019-11-29 16:05:00 Hospital Encounter Adisreal, Abdelrahman Frank [facility] 1.2.840.114 350.1.13.10 4.2.7.2.686 [id number] 2019-11-29 13:30:00 2019-11-29 13:30:00 Outpatient R ABDELRAHMAN GREY [facility] [id number] General acute hospital 2019-11-22 12:56:24 2019-11-22 16:32:07 Routine Visit Rimma Andrew [facility] 1.2.840.114 350.1.13.10 4.2.7.2.686 [id number] 2019-11-22 16:00:00 2019-11-22 16:00:00 [id number] 2019-11-16 15:08:00 2019-11-16 19:25:00 Outpatient P ABDELRAHMAN GREY [facility] [id number] General acute hospital Results Test Description Test Time Test Comments Results Result Co mments Source [facility] MOLECULAR [id number] 20:20:11* Test Item Value Reference Range Interpretation Comme nts POCT Molecular Strep (test c ode = 00471-4) Negative Negative Lab Interpretation (test cod e = 32692-4) Normal [facility] MOLECULAR [id number] 19:50:04* Test Item Value Reference Range Interpretation Comme nts POCT Molecular FluA (test co de = 23393-5) Negative Negative POCT Molecular FluB (test co de = 79775-9) Negative Negative Lab Interpretation (test cod e = 28846-1) Normal [facility] MOLECULAR [id number] 01:48:05* Test Item Value Reference Range Interpretation Comme nts POCT Molecular FluA (test co de = 08184-8) Negative Negative POCT Molecular FluB (test co de = 07571-9) Negative Negative Lab Interpretation (test cod e = 06648-7) Normal [facility] MOLECULAR [id number] 01:43:12* Test Item Value Reference Range Interpretation Comme nts POCT Molecular Strep (test c ode = 13986-8) Negative Negative Lab Interpretation (test cod e = 83821-9) Normal [facility] GRP A STREP (MOLECULAR)2021-07-07 22:43:00* Test Item Value Reference Range Interpretation Comme nts POCT GP A STREP (test code = 88972-4) neg Negative - Negative KASSANDRA (test code = KASSANDRA) accurate developme nt and interpretation of all internal controls Lab Interpretation (test code = 74430-0) Normal [facility] Notes Date/Time Note Provider Source 2024-01-11 16:45:00 MWGomiAcxleK4vjuTGkH lwpB+SKhsJw4q0ha5zBVM1 jMTTnnSW3abJb4vtPcoqOG0151-99-54X35:45:00F ormatting of this note is different from the original.Images from the original note were not included.Venipuncture collection performed by clean technique on the right anticubitus. Total of 1 attempts were made. Slight pressure and a bandage/dressing were applied to the site(s). The patient experienced no complications. The following specimens were processed according to instructions and sent to [facility] laboratories per lab order on 01/11/2024:LT BLUESST 1 RSTREDLAVPPTDK GREEN (LiHep)DK GREEN (SodH)GRAYDK BLUE (K2)DK BLUE (S)ACDBlood CultureNIPT/NTD [id number] [id number]:47:05Nurse NoteTXT1.2.840.094212.1.13.104.2.7.2.89567 9|[id number] for patient [id number] NoteLNNARRATIVEFormatted C-CDA narrative text[address] Gk[id number] UMOEZIWFKMDQIHUO5321-89-74N70:47:051.2.840 .762783.1.72.3.15|1.2.840.279523.1.13.104. [id number] [facility]"
[2024-01-17 17:58] LABS: SARS-CoV-2 Antigen CONTROL BLUE LINE VIS/BG OK; SARS-CoV-2 Antigen Rapid Res Negative (Negative)
--- NOTE | 2024-01-17 18:38 | ER ---
Nurse's Notes [facility] Name: Zacarias Thomson Age: 28 yrs Sex: Female : 1995 Arrival Date: 01/17/2024 Time: 16:56 Bed IW1 Private MD: Diagnosis: Acute pharyngitis, unspecified Presentation: 01/16 17:09 Chief complaint: Patient states: has had a sore throat for about 3 weeks, went to [address] and had negative strep and negative mono tests, had a low grade fever highest of 100.7. Coronavirus screen: At this time, the client does not indicate any symptoms associated with coronavirus-19. Ebola Screen: No symptoms or risks identified at this time. Initial Sepsis Screen: Does the patient meet any 2 criteria? No. Patient's initial sepsis screen is negative. Does the patient have a suspected source of infection? No. Patient's initial sepsis screen is negative. Risk Assessment: Do you want to hurt yourself or someone else? Patient reports no desire to harm self or others. Onset of symptoms is unknown. 17:09 Method Of Arrival: Ambulatory ko 17:09 Acuity: ADALBERTO 4 ko1 Triage Assessment: 17:14 General: Appears in no apparent distress. Behavior is calm, cooperative, appropriate ko1 for age. Pain: Complains of pain in throat. EENT: Reports pain in throat. Historical: - Allergies: 17:14 Sulfa (Sulfonamide Antibiotics); ko1 - PMHx: 17:14 Asthma; ko1 - PSHx: 17:14 Cholecystectomy; ko1 - Immunization history:: Adult Immunizations up to date. - Infectious Disease History:: Denies. - Social history:: Smoking status: Patient denies any tobacco usage or history of. Screenin:30 [facility] ED Fall Risk Assessment (Adult) History of falling in the last 3 months, ko1 including since admission No falls in past 3 months (0 pts) Confusion or Disorientation No (0 pts) Intoxicated or Sedated No (0 pts) Impaired Gait No (0 pts) Mobility Assist Device Used No (0 pt) Altered Elimination No (0 pt) Score/Fall Risk Level 0 - 2 = Low Risk Oriented to surroundings, Maintained a safe environment, Educated pt \T\ family on fall prevention, incl call for assistance when getting out of bed, Assessed \T\ reinforced patient's understanding of fall precautions, Provided non-skid footwear, Hourly rounding (assess needs \T\ fall precautionary measures) done, Used ambulatory aids as needed (educated on \T\ assisted with), Used gait belt as appropriate. Abuse screen: Denies threats or abuse. Denies injuries from another. Nutritional screening: No deficits noted. Tuberculosis screening: No symptoms or risk factors identified. Assessment: 17:30 General: Appears in no apparent distress. Pain: Complains of pain in throat. Neuro: No ko1 deficits noted. Cardiovascular: No deficits noted. Respiratory: Airway is patent Respiratory effort is even, unlabored. GI: No deficits noted. : No deficits noted. EENT: Throat is pink. Derm: No deficits noted. Musculoskeletal: No deficits noted. Vital Signs: 17:09 BP 122 / 72; Pulse 92; Resp 16; Temp 97.7; Pulse Ox 100% ; ko1 18:52 BP 118 / 78; Pulse 88; Resp 16; Pulse Ox 99% ; ko1 ED Course: 16:59 Patient arrived in ED. mg5 17:00 Josesito Collier PA is PHCP. cp 17:00 Hayden Estrada MD is Attending Physician. cp 17:14 Triage completed. ko1 17:14 Arm band placed on right wrist. Patient placed in an exam room, Patient notified of ko1 wait time. 17:19 Influenza Screen (a \T\ B) Sent. ko1 17:19 SARS RAPID Sent. ko1 17:19 Strep Sent. ko1 17:30 Patient has correct armband on for positive identification. Allergy band placed. ko1 Provided Education on: swabs. 17:30 No provider procedures requiring assistance completed. Patient did not have IV access ko1 during this emergency room visit. 17:30 COVID swab sent to lab. Flu and/or RSV swab sent to lab. Strep swab sent to lab. ko1 18:37 Elise Glynn MD is Referral Physician. cp Administered Medications: No medications were administered Medication: 17:30 VIS not applicable for this client. ko1 Outcome: 18:37 Discharge ordered by . cp 18:52 Discharged to home ambulatory, ko1 18:52 Condition: stable 18:52 Discharge instructions given to patient, Instructed on discharge instructions, follow up and referral plans. medication usage, Demonstrated understanding of instructions, follow-up care, medications, Prescriptions given X 2, 18:53 Patient left the ED. ko1 Signatures: Josesito Collier PA PA cp Oliver, Kathy, RN RN ko1 Lianne Queen mg5
--- NOTE | 2024-01-17 18:38 | EDPHYS ---
Physician Documentation [facility] Name: Zacarias Thomson Age: 28 yrs Sex: Female : 1995 Arrival Date: 01/17/2024 Time: 16:56 Bed IW1 Private MD: ED Physician Hayden Estrada HPI: 01/16 17:20 This 28 yrs old Female presents to ER via Ambulatory with complaints of Sore cp Throat. 17:20 The patient presents with sore throat. cp 17:20 Onset: The symptoms/episode began/occurred 3 week(s) ago. cp 17:20 Severity of symptoms: in the emergency department the symptoms are unchanged, despite cp home interventions. Associated signs and symptoms: Pertinent negatives chest pain, diarrhea, dysphagia, earache, fever, vomiting. 17:20 Patient reports testing negative for strep and [place] since symptoms started. Fever of cp 100.7 yesterday. Historical: - Allergies: 17:14 Sulfa (Sulfonamide Antibiotics); ko1 - PMHx: 17:14 Asthma; ko1 - PSHx: 17:14 Cholecystectomy; ko1 - Immunization history:: Adult Immunizations up to date. - Infectious Disease History:: Denies. - Social history:: Smoking status: Patient denies any tobacco usage or history of. ROS: 17:25 Constitutional: Negative for fever, cp 17:25 Eyes: Negative for injury, pain, redness, and discharge, cp 17:25 ENT: Positive for sore throat, Negative for drainage from ear(s), ear pain, sinus congestion, sinus pain, dental pain, difficulty swallowing, difficulty handling secretions, hoarseness, 17:25 Neck: Negative for pain with movement, pain at rest, stiffness, 17:25 Cardiovascular: Negative for chest pain, 17:25 Respiratory: Negative for shortness of breath, wheezing, 17:25 Abdomen/GI: Negative for abdominal pain, nausea, vomiting, and diarrhea, 17:25 Skin: Negative for rash, 17:25 Neuro: Negative for altered mental status, dizziness, headache, weakness, 17:25 All other systems are negative, Exam: 17:25 Constitutional: The patient appears in no acute distress, alert, awake, non-toxic, well cp developed, well nourished, obese, 17:25 Head/Face: Normocephalic, atraumatic. cp 17:25 Eyes: Periorbital structures: appear normal, Conjunctiva: normal, no exudate, no injection, Sclera: no appreciated abnormality, Lids and lashes: appear normal, bilaterally, 17:25 ENT: External ear(s): are unremarkable, Ear canal(s): are normal, clear, TM's: dullness, bilaterally, Nose: is normal, Mouth: Lips: moist, Oral mucosa: moist, Posterior pharynx: Airway: no evidence of obstruction, patent, Tonsils: with erythema, no enlargement, no exudate, swelling, is not appreciated, erythema, that is mild, exudate, is not appreciated, 17:25 Neck: ROM/movement: Meningeal signs: are not present, nuchal rigidity, is not appreciated, Lymph nodes: lymphadenopathy is appreciated, anterior cervical nodes, 17:25 Chest/axilla: Inspection: normal, 17:25 Cardiovascular: Rate: normal, 17:25 Respiratory: the patient does not display signs of respiratory distress, Respirations: normal, no use of accessory muscles, no retractions, labored breathing, is not present, Breath sounds: are clear throughout, no decreased breath sounds, no stridor, no wheezing, 17:25 Abdomen/GI: Exam negative for discomfort, distension, guarding, Inspection: abdomen appears normal, Vital Signs: 17:09 BP 122 / 72; Pulse 92; Resp 16; Temp 97.7; Pulse Ox 100% ; ko1 18:52 BP 118 / 78; Pulse 88; Resp 16; Pulse Ox 99% ; ko1 MDM: 17:25 Patient medically screened. cp 17:45 Differential diagnosis: apthous ulcer, epiglottitis, jefferson-garcia virus, group A strep cp tonsillitis, laryngitis, mononucleosis, peritonsillar abscess pharyngitis, retropharyngeal abcess. 18:37 Data reviewed: vital signs, nurses notes, lab test result(s), and as a result, I will cp discharge patient. 18:37 Counseling: I had a detailed discussion with the patient and/or guardian regarding the cp historical points, exam findings, and any diagnostic results supporting the discharge/admit diagnosis, lab results, to return to the emergency department if symptoms worsen or persist or if there are any questions or concerns that arise at home. 01/16 17:17 Order name: Strep cp 01/16 17:17 Order name: SARS RAPID; Complete Time: 18:17 cp 01/16 17:17 Order name: Influenza Screen (a \T\ B); Complete Time: 18:17 cp 01/16 18:00 Order name: Throat Culture EDMS Administered Medications: No medications were administered Disposition: 01/17 09:00 Co-signature as Attending Physician, Hayden Estrada MD I reviewed the patient's care rn provided by the Advanced Practice Provider and agree with the diagnosis and treatment plan. Disposition Summary: 01/17/24 18:37 Discharge Ordered Notes: Location: Home cp Condition: Stable cp Diagnosis - Acute pharyngitis, unspecified cp Followup: cp - With: Elise Glynn MD - When: 2 - 3 days - Reason: Worsening of condition Discharge Instructions: - Discharge Summary Sheet cp - Pharyngitis cp - Sore Throat cp Forms: - Medication Reconciliation Form cp - Antibiotic Education cp - Prescription Opioid Use cp - Patient Portal Instructions cp - Leadership Thank You Letter cp Prescriptions: - Lidocaine Viscous - take 5 milliliter ORAL route every 4-6 hours As needed; 246 milliliter; cp Refills: 0, Product Selection Permitted - Amoxicillin 875 mg Oral Tablet - take 1 tablet ORAL route every 12 hours for 10 days; 20 tablet; Refills: 0, cp Product Selection Permitted Signatures: Dispatcher [employer] Hayden Senior MD MD rn Josesito Collier PA PA cp Oliver, Kathy, RN RN ko1
[2024-01-17 19:25] VITALS: BP 118/78; TEMP 97.7; O2SAT 99
== END 2024-01-17 18:53 | disposition home or self-care (01) ==
LOC: ER 16:56
DX: J02.9 Acute pharyngitis, unspecified (principal); Z11.52 Encounter for screening for COVID-19
CPT/HCPCS: 36415; 87070; 87081; 87804; 87811; 99283

== ENCOUNTER 2025-05-02 | Emergency (ER) | payer BC ==
--- OUTSIDE RECORDS SUMMARY | 2025-05-02 00:05 | XMS REPORT | Continuity of Care Document ---
Author Name Unknown Address [address] [facility] [address] [place] [address] [facility] Address [address] [facility] [place] [address] Care Team Providers Care Criminal Psychologist Name Role Phone Esequiel Boyd Primary Care Physician [phone] Rafat Arriola Attending Clinician Unavailable Doctor Unassigned, [place] Attending Clinician U MAX Bojorquez Attending Clinician Unavai lable Lab, Ang - Db Attending Clinician Unavailable Unknown, Attending Attending Clinician Unavailab Max White Attending Clinician [phone] Dorian Womack MD Attending Clinician [phone] DORIAN WOMACK Attending Clinician Unavailable Marques BARBOSA Attending Clinician Unavailable Marques Mcgarry Attending Clinician [phone] UNKNOWN, ATTENDING Attending Clinician Unavailab Zulma Mtz Attending Clinician [phone] ZULMA PALM Attending Clinician Unavailable NETTIE GARVIN Attending Clinician Unavailabl Nettie Benton Attending Clinician [phone] Provider, [facility] Attending Clinician Unavailable ABDELRAHMAN GREY Attending Clinician Unavailable DOROTHY LAUREANO Attending Clinician Unavailable Nae ALEJANDRE, Gretel Attending Clinician Unavailable JENNIE OLIVERA Attending Clinician Unavailable Jozef Gunderson DO Attending Clinician [phone] Dread Feliciano MD Attending Clinician [phone] RIMMA ANDREW Attending Clinician Unavailable Rimma Andrew PA-C Attending Clinician [phone] Vanessa Chen MD Attending Clinician [phone] Abdelrahman Grey MD Attending Clinician [phone] VANESSA CHEN Admitting Clinician Unavailable Marques BARBOSA Admitting Clinician Unavailable Abdelrahman Grey MD Admitting Clinician [phone] ABDELRAHMAN GREY Admitting Clinician Unavailable Payers Payer Name Policy Type Policy Number Effective Date Expirati on Date Source [facility] [id number] 2019 00:00:00 [id number] 6 [id number] [facility] zDO NOT USE 0 [facility] [employer] [id number] 2020 00:00:00 Problems Condition Name Condition Details Condition Category Status Onset Date Resolution Date Last Treatment Date Treating Clinician Comments Source Tobacco use disorder Tobacco use disorder Disease Active 2017-09 00:00: 00 [facility] BMI 50.0-59.9, adult BMI 50.0-59.9, adult Disease Active 2017-09 00:00: 00 [facility] [id number] Obesity, morbid, BMI 50 or higher Problem [facility] [id number] Severe episode of recurrent major depressive disorder, without psychotic features Problem [facility] [id number] Raised intraocula r pressure, unspecifie d laterality Problem [facility] [id number] Chronic fatigue Problem [facility] [id number] Pseudotumo r cerebri Problem [facility] [id number] Essential hypertensi on Problem [facility] Allergies, Adverse Reactions, Alerts Allergy Name Allergy Type Status Severity Reaction(s) Onset Date Inactive Date Treating Clinician Comments Source SULFA (SULFONA MIDE ANTIBIOT ICS) Drug Class Active Rash 04-07 00:00: 00 [facility] Sulfa (Sulfona mide Antibiot ics) Propensi ty to adverse reaction s Active Rash 04-07 00:00: 00 [facility] Sulfa (Sulfona mide Antibiot ics) Propensi ty to adverse reaction s Active Rash 04-07 00:00: 00 [facility] Substanc e with sulfonam rudolph structur e and antibact erial mechanis m of action (substan ce) Substanc e with sulfonam rudolph structur e and antibact erial mechanis m of action (substan ce) Active Unknown [facility] Social History Social Habit Start Date Stop Date Quantity Comments Source [facility] of [facility] Sex Assigned At [facility] Alcohol intake 2024-01-11 00:00:00 2024-01-11 00:00:00 Current non-drinker of alcohol (finding) [facility] Alcoholic beverage intake 2024-01-11 00:00:00 2024-01-11 00:00:00 Current non-drinker of alcohol (finding) [facility] Exposure to SARS-CoV-2 (event) 2022-08-28 00:00:00 2022-09-07 17:32:00 Not sure [facility] Cigarettes smoked current (pack per day) - Reported 2022-09-07 00:00:00 2022-09-07 00:00:00 [facility] Cigarette pack-years 2022-09-07 00:00:00 2022-09-07 00:00:00 [facility] Tobacco use and exposure 2022-09-07 00:00:00 2022-09-07 00:00:00 Smokeless tobacco non-user [facility] Tobacco Comment 2022-09-07 00:00:00 2022-09-07 00:00:00 patient states she quit 2 months ago [facility] History of Social function 2022-07-28 00:00:00 2022-07-28 00:00:00 [facility] Smoking Status Start Date Stop Date Source Never Smoker [facility] Ex-smoker 2022-09-07 00:00:00 2022-09-07 00:00:00 [facility] Medications Ordered Medication Name Filled Medication Name Start Date Stop Date Current Medication? Ordering Clinician Indication Dosage Frequency Signature (SIG) Comments Components Source predniSONE 20 mg tablet 01-10 00:00: 00 01-16 04:59 :00 No [id number] 20mg Take 1 tablet by mouth in the morning for 5 days. [facility] maalox/diph enhydrAMINE :lidocaine2 % viscous 1:1:1 Susp suspension 01-01 00:00: 00 Yes [id number] 5mL Take 5 mL by mouth 3 (three) times daily as needed (gargle and spit). [facility] bromphenira mine-pseudo ephedrine-D M (BROMFED DM) 2-30-10 mg/5 mL syrup 01-01 00:00: 00 Yes [id number] 10mL Take 10 mL by mouth 4 (four) times daily as needed for Cold symptoms or Cough. [facility] ibuprofen 600 mg tablet 01-01 00:00: 00 Yes [id number] 600mg Take 1 tablet by mouth every 6 (six) hours as needed for Pain (scale 1-3) or Pain (scale 4-6). [facility] ondansetron 4 mg disintegrat ing tablet 01-01 00:00: 00 Yes [id number] 4mg Take 1 tablet by mouth every 12 (twelve) hours as needed for Nausea and Vomiting (N/V). [facility] Sertraline HCl 50 MG Sertraline HCl 50 MG 12-13 00:00: 00 No 1{table t} QD Sertraline HCl 50 MG Topiramate 25 MG Topiramate 25 MG 12-13 00:00: 00 No 1{table t} QD Topiramate 25 MG Escitalopra m Oxalate 10 MG Escitalopra m Oxalate 10 MG 11-18 00:00: 00 No 1{table t} QD Escitalopr am Oxalate 10 MG Lisinopril 10 MG Lisinopril 10 MG 11-18 00:00: 00 No 1{table t} QD Lisinopril 10 MG ibuprofen (IBU) tablet 600 mg 04-04 02:15: 00 04-04 02:36 :00 No 600mg 600 mg, Oral, ONCE, 1 dose, On 04/03/23 at 2115, MAEGAN [facility] ibuprofen 600 mg tablet 04-03 00:00: 00 01-01 00:00 :00 No [id number] 600mg Take 1 tablet by mouth every 6 (six) hours as needed for Pain (scale 4-6). [facility] erythromyci n 5 mg/gram (0.5 %) ophthalmic ointment 2021-09 00:00: 00 09-15 05:59 :00 No [id number] .5[in_u s] Place 0.5 Inches in both eyes 4 (four) times daily for 7 days. [facility] amoxicillin -clavulanat e (AUGMENTIN) 875-125 mg per tablet 02-11 00:00: 00 02-22 04:59 :00 No [id number] 1{tbl} Take 1 tablet by mouth 2 (two) times daily for 10 days. [facility] albuterol 90 mcg/actuati on inhaler 02-02 00:00: 00 Yes [id number] 2{puff} Inhale 2 Puffs every 6 (six) hours as needed for Wheezing, Shortness of Breath or Chest tightness. [facility] bromphenira mine-pseudo ephedrine-D M (BROMFED DM) 2-30-10 mg/5 mL syrup 02-02 00:00: 00 01-01 00:00 :00 No [id number] 5mL Take 5 mL by mouth 4 (four) times daily as needed for Congestion /Allergies or Cough. [facility] vit calc,iron,f olic ( VITAMIN ORAL) 2020-09 011 17:22: 09 Yes Take by mouth. [facility] ondansetron 4 mg disintegrat ing tablet 11-28 00:00: 00 01-01 00:00 :00 No [id number] 4mg Take 1 tablet by mouth every 8 (eight) hours as needed for Nausea and Vomiting (N/V). [facility] mupirocin 2 % ointment 2019-09 00:00: 00 Yes [id number] Apply to area(s) 3 (three) times daily. [facility] vitamin w/FA tablet 11-28 00:00: 00 Yes [id number] 102 1{tbl} Take 1 tablet by mouth daily. [facility] docusate calcium 240 mg capsule 11-28 00:00: 00 Yes [id number] 102 240mg Take 1 capsule by mouth once daily as needed for Constipati on. [facility] ferrous sulfate 325 mg (65 mg iron) tablet 11-28 00:00: 00 Yes [id number] 102 325mg Take 1 tablet by mouth 2 (two) times daily. [facility] vitamin w/FA tablet 11-28 00:00: 00 Yes [id number] 102 1{tbl} Take 1 tablet by mouth daily. [facility] ibuprofen 600 mg tablet 11-28 00:00: 00 01-01 00:00 :00 No [id number] 102 600mg Take 1 tablet by mouth every 6 (six) hours as needed (Pain). Take with food or milk. [facility] FLUoxetine 40 mg capsule 10-06 00:00: 00 Yes [id number] 40mg Take 1 capsule by mouth daily. [facility] Clindamycin Phosphate 1 % Clindamycin Phosphate 1 % No 1{appli cation} QD Clindamyci n Phosphate 1 % Immunizations Ordered Immunization Name Filled Immunization Name Date Status Comments Source TDAP (ADACEL) VACCINE 2019-10-02 00:00:00 [facility] TDAP (ADACEL) VACCINE 2019-10-02 00:00:00 Completed [facility] TDAP (ADACEL) VACCINE 2019-10-02 00:00:00 Completed [facility] TDAP (ADACEL) VACCINE 2019-10-02 00:00:00 Completed [facility] TDAP (ADACEL) VACCINE 2019-10-02 00:00:00 Completed [facility] TDAP (ADACEL) VACCINE 2019-10-02 00:00:00 Completed [facility] TDAP (ADACEL) VACCINE 2019-10-02 00:00:00 Completed [facility] TDAP (ADACEL) VACCINE 2019-10-02 00:00:00 Completed [facility] TDAP (ADACEL) VACCINE 2019-10-02 00:00:00 Completed [facility] TDAP (ADACEL) VACCINE 2019-10-02 00:00:00 Completed [facility] TDAP (ADACEL) VACCINE 2019-10-02 00:00:00 Completed [facility] Influenza Virus Vaccine Quad .5 mL IM 6+ MO 2019-07-06 00:00:00 Completed [facility] Influenza Virus Vaccine Quad .5 mL IM 6+ MO 2019-07-06 00:00:00 Completed [facility] Influenza Virus Vaccine Quad .5 mL IM 6+ MO 2019-07-06 00:00:00 Completed [facility] Influenza Virus Vaccine Quad .5 mL IM 6+ MO 2019-07-06 00:00:00 Completed [facility] Influenza Virus Vaccine Quad .5 mL IM 6+ MO 2019-07-06 00:00:00 Completed [facility] Influenza Virus Vaccine Quad .5 mL IM 6+ MO 2019-07-06 00:00:00 Completed [facility] Influenza Virus Vaccine Quad .5 mL IM 6+ MO 2019-07-06 00:00:00 Completed [facility] Influenza Virus Vaccine Quad .5 mL IM 6+ MO 2019-07-06 00:00:00 Completed [facility] Influenza Virus Vaccine Quad .5 mL IM 6+ MO 2019-07-06 00:00:00 Completed [facility] Influenza Virus Vaccine Quad .5 mL IM 6+ MO 2019-07-06 00:00:00 Completed [facility] Influenza Virus Vaccine Quad .5 mL IM 6+ MO 2019-07-06 00:00:00 Completed [facility] Influenza Virus Vaccine Quad .5 mL IM 6+ MO (FLUZONE/FLULAVAL/F LUARIX) Unknown Completed [facility] TDAP (ADACEL) VACCINE Unknown Completed [facility] Influenza Virus Vaccine Quad .5 mL IM 6+ MO (FLUZONE/FLULAVAL/F LUARIX) Unknown Completed [facility] TDAP (ADACEL) VACCINE Unknown Completed [facility] Influenza Virus Vaccine Quad .5 mL IM 6+ MO (FLUZONE/FLULAVAL/F LUARIX) Unknown Completed [facility] TDAP (ADACEL) VACCINE Unknown Completed [facility] Influenza Virus Vaccine Quad .5 mL IM 6+ MO (FLUZONE/FLULAVAL/F LUARIX) Unknown Completed [facility] TDAP (ADACEL) VACCINE Unknown Completed [facility] Influenza Virus Vaccine Quad .5 mL IM 6+ MO (FLUZONE/FLULAVAL/F LUARIX) Unknown Completed [facility] TDAP (ADACEL) VACCINE Unknown Completed [facility] Influenza Virus Vaccine Quad .5 mL IM 6+ MO (FLUZONE/FLULAVAL/F LUARIX) Unknown Completed [facility] TDAP (ADACEL) VACCINE Unknown Completed [facility] Vital Signs Vital Name Observation Time Observation Value Comments S ource height 2025-02-09 08:15:00 65.0 [in_i] [facility] weight 2025-02-09 08:15:00 356.4 [lb_av] [facility] temperature 2025-02-09 08:15:00 97.3 [degF] [facility] bmi 2025-02-09 08:15:00 59.3 kg/m2 [facility] oximetry 2025-02-09 08:15:00 96 % [facility] blood pressure systolic 2025-02-09 08:15:00 127 mm[Hg] [facility] blood pressure diastolic 2025-02-09 08:15:00 64 mm[Hg] [facility] Systolic blood pressure 2024-01-11 21:18:00 109 mm[Hg] [facility] Diastolic blood pressure 2024-01-11 21:18:00 73 mm[Hg] [facility] Heart rate 2024-01-11 21:18:00 83 /min [facility] Body temperature 2024-01-11 21:18:00 37.33 [facility] Respiratory rate 2024-01-11 21:18:00 17 /min [facility] Body weight 2024-01-11 21:18:00 156.582 kg [facility] BMI 2024-01-11 21:18:00 59.25 kg/m2 [facility] Oxygen saturation in Arterial blood by Pulse oximetry 2024-01-11 21:18:00 97 /min [facility] Systolic blood pressure 2024-01-02 20:13:00 144 mm[Hg] on lisinopril [facility] Diastolic blood pressure 2024-01-02 20:13:00 84 mm[Hg] on lisinopril [facility] Heart rate 2024-01-02 20:13:00 90 /min [facility] Body temperature 2024-01-02 20:13:00 36.61 [facility] Respiratory rate 2024-01-02 20:13:00 18 /min [facility] Body height 2024-01-02 20:13:00 162.6 cm [facility] Body weight 2024-01-02 20:13:00 156.604 kg [facility] BMI 2024-01-02 20:13:00 59.26 kg/m2 [facility] Oxygen saturation in Arterial blood by Pulse oximetry 2024-01-02 20:13:00 99 /min [facility] height 2023-12-14 10:40:00 65.0 [in_i] [facility] weight 2023-12-14 10:40:00 341 [lb_av] [facility] temperature 2023-12-14 10:40:00 97.2 [degF] [facility] bmi 2023-12-14 10:40:00 56.74 kg/m2 [facility] oximetry 2023-12-14 10:40:00 99 % [facility] respiratory rate 2023-12-14 10:40:00 16 /min [facility] blood pressure systolic 2023-12-14 10:40:00 107 mm[Hg] [facility] blood pressure diastolic 2023-12-14 10:40:00 57 mm[Hg] [facility] height 2023-11-18 11:00:00 65.0 [in_i] [facility] weight 2023-11-18 11:00:00 345 [lb_av] [facility] temperature 2023-11-18 11:00:00 97.3 [degF] [facility] bmi 2023-11-18 11:00:00 57.4 kg/m2 [facility] oximetry 2023-11-18 11:00:00 98 % [facility] blood pressure systolic 2023-11-18 11:00:00 157 mm[Hg] [facility] blood pressure diastolic 2023-11-18 11:00:00 89 mm[Hg] [facility] Systolic blood pressure 2023-04-04 01:23:00 150 mm[Hg] [facility] Diastolic blood pressure 2023-04-04 01:23:00 60 mm[Hg] [facility] Heart rate 2023-04-04 01:23:00 84 /min [facility] Body temperature 2023-04-04 01:21:00 37.22 [facility] Respiratory rate 2023-04-04 01:21:00 20 /min [facility] Body height 2023-04-04 01:21:00 162.6 cm [facility] Body weight 2023-04-04 01:21:00 154.223 kg [facility] BMI 2023-04-04 01:21:00 58.36 kg/m2 [facility] Oxygen saturation in Arterial blood by Pulse oximetry 2023-04-04 01:21:00 98 /min [facility] Systolic blood pressure 2022-09-07 23:33:00 114 mm[Hg] [facility] Diastolic blood pressure 2022-09-07 23:33:00 79 mm[Hg] [facility] Heart rate 2022-09-07 23:33:00 87 /min [facility] Body temperature 2022-09-07 23:33:00 37.33 [facility] Respiratory rate 2022-09-07 23:33:00 15 /min [facility] Body height 2022-09-07 23:33:00 162.6 cm [facility] Body weight 2022-09-07 23:33:00 153.86 kg [facility] BMI 2022-09-07 23:33:00 58.22 kg/m2 [facility] Oxygen saturation in Arterial blood by Pulse oximetry 2022-09-07 23:33:00 99 /min [facility] Systolic blood pressure 2022-07-28 19:27:00 135 mm[Hg] [facility] Diastolic blood pressure 2022-07-28 19:27:00 83 mm[Hg] [facility] Heart rate 2022-07-28 19:27:00 85 /min [facility] Body temperature 2022-07-28 19:27:00 37.11 [facility] Respiratory rate 2022-07-28 19:27:00 14 /min [facility] Body height 2022-07-28 19:27:00 162.6 cm [facility] Body weight 2022-07-28 19:27:00 153.769 kg [facility] BMI 2022-07-28 19:27:00 58.19 kg/m2 [facility] Oxygen saturation in Arterial blood by Pulse oximetry 2022-07-28 19:27:00 99 /min [facility] Systolic blood pressure 2022-02-11 17:45:00 126 mm[Hg] [facility] Diastolic blood pressure 2022-02-11 17:45:00 82 mm[Hg] [facility] Heart rate 2022-02-11 17:45:00 96 /min [facility] Body temperature 2022-02-11 17:45:00 36.83 [facility] Respiratory rate 2022-02-11 17:45:00 17 /min [facility] Body height 2022-02-11 17:45:00 162.6 cm [facility] Body weight 2022-02-11 17:45:00 151.048 kg [facility] BMI 2022-02-11 17:45:00 57.16 kg/m2 [facility] Oxygen saturation in Arterial blood by Pulse oximetry 2022-02-11 17:45:00 98 /min [facility] Systolic blood pressure 2022-02-03 01:34:00 134 mm[Hg] [facility] Diastolic blood pressure 2022-02-03 01:34:00 78 mm[Hg] [facility] Heart rate 2022-02-03 01:34:00 114 /min [facility] Body temperature 2022-02-03 01:34:00 39.5 [facility] Respiratory rate 2022-02-03 01:34:00 18 /min [facility] Body height 2022-02-03 01:34:00 162.6 cm [facility] Body weight 2022-02-03 01:34:00 153.769 kg [facility] BMI 2022-02-03 01:34:00 58.19 kg/m2 [facility] Oxygen saturation in Arterial blood by Pulse oximetry 2022-02-03 01:34:00 97 /min [facility] Systolic blood pressure 2021-07-07 22:21:00 128 mm[Hg] [facility] Diastolic blood pressure 2021-07-07 22:21:00 80 mm[Hg] [facility] Heart rate 2021-07-07 22:21:00 98 /min [facility] Body temperature 2021-07-07 22:21:00 36.89 [facility] Respiratory rate 2021-07-07 22:21:00 16 /min [facility] Body weight 2021-07-07 22:21:00 159.213 kg [facility] BMI 2021-07-07 22:21:00 60.25 kg/m2 [facility] Oxygen saturation in Arterial blood by Pulse oximetry 2021-07-07 22:21:00 96 /min [facility] Procedures Procedure Date / Time Performed Performing Clinicia n Source POCT SARS-COV-2 ANTIGEN (BINAX NOW) 2024-01-02 21:03:00 Dorian Womack [facility] POCT MOLECULAR STREP 2024-01-02 20:12:00 Unknown, Attlianet maciel [facility] XR FOOT 3+ VW LEFT 2023-04-04 02:39:00 Marques Barbosa [facility] NOTICE OF PRIVACY PRACTICES 2023-04-04 01:11:56 Doctor Unassigned, [facility] CONSENT/REFUSAL FOR DIAGNOSIS AND TREATMENT 2023-04-04 01:10:25 Doctor Unassigned, [facility] POCT MOLECULAR FLU 2022-07-28 19:38:00 Unknown, Attend [facility] ASSIGNMENT OF BENEFITS 2022-07-28 19:24:35 Docto r Unassigned, [facility] POCT MOLECULAR FLU 2022-02-03 01:36:00 Unknown, Attend [facility] POCT MOLECULAR STREP 2022-02-03 01:33:00 Unknown, Attlianet maciel [facility] POCT GRP A STREP (MOLECULAR) 2021-07-07 22:33:00 Nettie Garvin [facility] Encounters Start Date/Time End Date/Time Encounter Type Admission Type Attending Clinicians Care Facility Care Department Encounter ID Source 2024-05-24 08:29:01 Outpatient Rafat Arriola [facility] [id number] [facility] 2024-01-13 08:50:01 Outpatient Rafat Arriola [facility] [id number] [facility] 2023-11-18 10:14:01 Outpatient Rafat Arriola [facility] [id number] [facility] 2021-07-27 03:12:16 Emergency [facility] [id number] [facility] 2021-07-26 04:35:53 Emergency [facility] [id number] [facility] 2021-07-24 12:09:16 Emergency [facility] [id number] [facility] 2021-07-24 12:09:16 Outpatient P [facility] [id number] [facility] 2025-02-16 00:00:00 2025-02-16 00:00:00 (TEL) [facility] [id number] [facility] 2025-02-09 00:00:00 2025-02-09 00:00:00 OFFICE VISIT ESTAB PT LEVEL 4 [facility] [id number] [facility] 2024-07-18 00:00:00 2024-07-18 00:00:00 (TEL) [facility] [id number] [facility] 2024-01-13 00:00:00 2024-02-19 18:12:13 Patient Secure Msg Doctor Unassigned, [place] [facility] 1..114 350.1.13.10 [id number] [id number] [facility] 2024-01-11 16:45:00 2024-01-11 17:14:12 Outpatient R MAX SCOTT [facility] [id number] [facility] 2024-01-11 16:45:00 2024-01-11 17:00:00 Credentialing Coordinator Visit [place], Jose - Brady Unknown, Attending [facility] 1.84.114 350.1.13.10 4.2.7.2.686 [id number] [facility] 2024-01-11 16:00:00 2024-01-11 16:38:34 Urgent Care Max Scott Unknown, Attending [facility] 1.84.114 350.1.13.10 4.2.7.2.686 [id number] [facility] 2024-01-02 15:00:00 2024-01-02 16:07:06 Urgent Care Dorian Womack Unknown, Attending [facility] 1..114 350.1.13.10 4.2.7.2.686 [id number] [facility] 2024-01-02 15:00:00 2024-01-02 16:07:06 Outpatient R DORIAN WOMACK [facility] [id number] [facility] 2023-12-14 00:00:00 2023-12-14 00:00:00 OFFICE VISIT ESTAB PT LEVEL 4 [facility] [id number] [facility] 2023-11-18 00:00:00 2023-11-18 00:00:00 OFFICE VISIT NEW PT LEVEL 4 [facility] [id number] [facility] 2023-09-17 00:00:00 2023-09-17 00:00:00 Patient Secure Msg Doctor Unassigned, [place] [facility] 1..114 350.1.13.10 4.2.7.2.686 [id number] [facility] 2023-04-05 00:00:00 2023-04-05 00:00:00 Patient Secure Msg Doctor Unassigned, [place] [facility] 1..114 350.1.13.10 4.2.7.2.686 [id number] [facility] 2023-04-03 20:28:00 2023-04-03 22:27:00 Emergency X Marques BARBOSA [facility] ERT [id number] [facility] 2023-04-03 20:28:00 2023-04-03 22:27:00 Emergency Marques Barbosa [facility] 1..114 350.1.13.10 4.2.7.2.686 [id number] [facility] 2023-04-03 00:00:00 2023-04-03 00:00:00 Orders Only Doctor Unassigned, [place] [facility] 1..840.114 350.1.13.10 4.2.7.2.686 [id number] [facility] 2022-11-16 10:31:38 2022-11-16 10:31:38 Outpatient [facility] [id number] Wicho Miguel 2022-11-01 19:45:00 2022-11-01 19:45:00 Outpatient R UNKNOWN, ATTENDING [facility] [id number] [facility] 2022-09-07 18:20:00 2022-09-07 18:20:00 Outpatient R UNKNOWN, ATTENDING [facility] [id number] [facility] 2022-09-07 17:40:00 2022-09-07 18:00:00 Urgent Care Zulma Palm Unknown, Attending [facility] 1..840.114 350.1.13.10 4.2.7.2.686 [id number] [facility] 2022-09-07 17:40:00 2022-09-07 17:40:00 Outpatient R ZULMA PALM [facility] [id number] [facility] 2022-09-07 17:20:00 2022-09-07 17:20:00 Outpatient R UNKNOWN, ATTENDING [facility] [id number] [facility] 2022-09-07 00:00:00 2022-09-07 00:00:00 Letter (Out) Zulma Palm [facility] 1.2.840.114 350.1.13.10 4.2.7.2.686 [id number] [facility] 2022-07-28 14:20:00 2022-07-28 14:58:02 Outpatient R NETTIE GARVIN [facility] [id number] [facility] 2022-07-28 14:20:00 2022-07-28 14:58:02 Urgent Care Nettie Garvin Unknown, Attending [facility] 1.2.840.114 350.1.13.10 4.2.7.2.686 [id number] [facility] 2022-07-28 00:00:00 2022-07-28 00:00:00 Orders Only Doctor Unassigned, [place] [facility] 1.2.840.114 350.1.13.10 4.2.7.2.686 [id number] [facility] 2022-07-28 00:00:00 2022-07-28 00:00:00 Letter (Out) Nettie Garvin [facility] 1.2.840.114 350.1.13.10 4.2.7.2.686 [id number] [facility] 2022-02-11 13:00:00 2022-02-11 13:00:00 Urgent Care Dorian Womack [facility] 1.2.840.114 350.1.13.10 4.2.7.2.686 [id number] [facility] 2022-02-11 13:00:00 2022-02-11 12:53:38 Outpatient DORIAN ERNST [facility] [id number] [facility] 2022-02-02 20:45:00 2022-02-02 20:49:03 Outpatient DORIAN ERNST [facility] [id number] [facility] 2022-02-02 20:45:00 2022-02-02 20:49:03 Urgent Care Provider, oJse [facility] Unknown, Attending [facility] 1.84114 350.1.13.10 4.2.7.2.686 [id number] [facility] 2021-11-26 14:00:00 2021-11-26 14:00:00 Outpatient ABDELRAHMAN HIGGINS [facility] [id number] [facility] 2021-11-21 18:00:00 2021-11-21 18:19:39 Outpatient R DOROTHY LAUREANO [facility] [id number] [facility] 2021-11-20 10:00:00 2021-11-20 10:00:00 Outpatient ABDELRAHMAN HIGGINS [facility] [id number] [facility] 2021-10-31 10:30:00 2021-10-31 10:30:00 Outpatient Anthony GREY [facility] [id number] [facility] 2021-07-08 00:00:00 2021-07-08 00:00:00 Telephone Gretel Soni [facility] 1.114 350.1.13.10 4.2.7.2.686 [id number] [facility] 2021-07-07 17:09:41 2021-07-07 18:04:40 [facility] 1.84.114 350.1.13.10 4.2.7.2.686 [id number] [facility] 2021-07-07 17:00:00 2021-07-07 18:04:40 [id number] 2021-07-07 00:00:00 2021-07-07 00:00:00 Orders Only Doctor Unassigned, [place] [facility] 1.84114 350.1.13.10 4.2.7.2.686 [id number] [facility] 2021-02-28 11:00:00 2021-02-28 11:00:00 Outpatient Anthony VENEGASJENNIE ZEE [facility] [id number] [facility] 2020-11-28 11:52:00 2020-11-28 14:05:00 Emergency Jozef Gunderson [facility] 1.2.840.114 350.1.13.10 4.2.7.2.686 [id number] 2020-11-28 00:00:00 2020-11-28 00:00:00 Orders Only Doctor Unassigned, [place] [facility] 1.2.840.114 350.1.13.10 4.2.7.2.686 [id number] 2020-08-06 21:07:00 2020-08-06 22:02:00 Emergency Braden Dread [facility] 1.2.840.114 350.1.13.10 4.2.7.2.686 [id number] 2020-08-06 00:00:00 2020-08-06 00:00:00 Orders Only Doctor Unassigned, [place] [facility] 1.2.840.114 350.1.13.10 4.2.7.2.686 [id number] 2020-06-27 13:30:00 2020-06-27 13:30:00 Outpatient RIMMA JOHNSON [facility] [id number] [facility] 2020-03-28 13:30:00 2020-03-28 13:30:00 Outpatient ABDELRAHMAN HIGGINS [facility] [id number] [facility] 2019-12-27 13:00:00 2019-12-27 13:00:00 Outpatient RIMMA JOHNSON [facility] [id number] [facility] 2019-12-27 08:34:05 2019-12-27 08:49:05 [facility]medici ne [facility] 1.2.840.114 350.1.13.10 4.2.7.2.686 [id number] 2019-11-28 07:13:02 2019-11-29 16:05:00 Hospital Encounter Vanessa Chen Vien Cam [facility] 1.2.840.114 350.1.13.10 4.2.7.2.686 [id number] 2019-11-29 13:30:00 2019-11-29 13:30:00 Outpatient ABDELRAHMAN HIGGINS [facility] [id number] [facility] 2019-11-22 12:56:24 2019-11-22 16:32:07 Routine Visit Rimma Andrew [facility] 1.2.840.114 350.1.13.10 4.2.7.2.686 [id number] 2019-11-22 16:00:00 2019-11-22 16:00:00 Outpatient R RIMMA ANDREW [facility] [id number] [facility] 2019-11-16 15:08:00 2019-11-16 19:25:00 Outpatient ABDELRAHMAN MERCER [facility] [id number] [facility] Results Test Description Test Time Test Comments Results Result Co mments Source [facility] MOLECULAR [id number] 20:20:11* Test Item Value Reference Range Interpretation Comme nts POCT Molecular Strep (test c ode = 77016-2) Negative Negative Lab Interpretation (test cod e = 46531-0) Normal [facility] MOLECULAR [id number] 19:50:04* Test Item Value Reference Range Interpretation Comme nts POCT Molecular FluA (test co de = 39041-9) Negative Negative POCT Molecular FluB (test co de = 04423-1) Negative Negative Lab Interpretation (test cod e = 85723-7) Normal [facility] MOLECULAR [id number] 01:48:05* Test Item Value Reference Range Interpretation Comme nts POCT Molecular FluA (test co de = 47317-3) Negative Negative POCT Molecular FluB (test co de = 92268-4) Negative Negative Lab Interpretation (test cod e = 57127-9) Normal [facility] MOLECULAR [id number] 01:43:12* Test Item Value Reference Range Interpretation Comme nts POCT Molecular Strep (test c ode = 42672-2) Negative Negative Lab Interpretation (test cod e = 96142-5) Normal [facility] GRP A STREP (MOLECULAR)2021-07-07 22:43:00* Test Item Value Reference Range Interpretation Comme nts POCT GP A STREP (test code = 12226-9) neg Negative - Negative KASSANDRA (test code = KASSANDRA) accurate developme nt and interpretation of all internal controls Lab Interpretation (test code = 24980-1) Normal [facility] Notes Date/Time Note Provider Source 2024-01-11 16:45:00 Images from the original note were not included. Venipuncture collection performed by clean technique on the right anticubitus. Total of 1 attempts were made. Slight pressure and a bandage/dressing were applied to the site(s). The patient experienced no complications. The following specimens were processed according to instructions and sent to [facility] laboratories per lab order on 01/11/2024: LT BLUE SST 1 RST RED LAV PPT DK GREEN (LiHep) DK GREEN (SodH) WANG DK BLUE (K2) DK BLUE (S) ACD Blood Culture NIPT/NTD [facility]
[2025-05-02] MEDS ORDERED: HYDROCODONE/APAP 5/325 MG TAB ONE (00:36)
[2025-05-02] MEDS ORDERED: carBAMazepine 200 MG TAB ONE (00:37)
[2025-05-02] MEDS ORDERED: MORPHINE 4 MG/ML SYR ONE (01:34)
[2025-05-02] MEDS ORDERED: NA CHLORIDE 0.9% 500 ML ONE (01:34)
--- NOTE | 2025-05-02 03:25 | ER ---
Nurse's Notes [facility] Name: Zacarias Thomson Age: 29 yrs Sex: Female : 1995 Arrival Date: 05/02/2025 Time: 00:00 Bed 5 Private MD: Diagnosis: Headache Presentation: 05/02 00:19 Chief complaint: Patient states: yesterday I started feeling a dull pain in the back of jb4 my head. Now it hurts very bad. It hurts when I turn my head or touch it. It hurts to tilt my head up or down. Coronavirus screen: At this time, the client does not indicate any symptoms associated with coronavirus-19. Ebola Screen: No symptoms or risks identified at this time. Initial Sepsis Screen: Does the patient meet any 2 criteria? No. Patient's initial sepsis screen is negative. Does the patient have a suspected source of infection? No. Patient's initial sepsis screen is negative. Risk Assessment: Do you want to hurt yourself or someone else? Patient reports no desire to harm self or others. Onset of symptoms was May 02, 2025. Transition of care: patient was not received from another setting of care. 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 - Infectious Disease History:: Denies. - Social history:: Smoking status: Patient reports the use of cigarette tobacco products, 3 cigarettes a day. - Family history:: not pertinent. - Hospitalizations: : No recent hospitalization is reported. Screenin:42 [facility] ED Fall Risk Assessment (Adult) History of falling in the last 3 months, bm8 including since admission No falls in past 3 months (0 pts) Confusion or Disorientation No (0 pts) Intoxicated or Sedated No (0 pts) Impaired Gait No (0 pts) Mobility Assist Device Used No (0 pt) Altered Elimination No (0 pt) Score/Fall Risk Level 0 - 2 = Low Risk Oriented to surroundings, Maintained a safe environment, Educated pt \T\ family on fall prevention, incl call for assistance when getting out of bed, Assessed \T\ reinforced patient's understanding of fall precautions, Hourly rounding (assess needs \T\ fall precautionary measures) done, Used ambulatory aids as needed (educated on \T\ assisted with), Used gait belt as appropriate. Abuse screen: Denies threats or abuse. Nutritional screening: No deficits noted. Tuberculosis screening: No symptoms or risk factors identified. Assessment: 00:42 General: Appears in no apparent distress. uncomfortable, Behavior is calm, cooperative, bm8 appropriate for age. Pain: Complains of pain in head Pain currently is 10 out of 10 on a pain scale. Neuro: Level of Consciousness is awake, alert, obeys commands, Oriented to person, place, time, situation, Appropriate for age Reports headache in left parietal area, occipital area, pt describes headache as a shooting electrical pain that comes and goes and is worse with palpation.. Cardiovascular: Denies chest pain, Capillary refill < 3 seconds in bilateral fingers Patient's skin is warm and dry. Respiratory: Airway is patent Respiratory effort is even, unlabored, Respiratory pattern is regular, symmetrical. GI: No signs and/or symptoms were reported involving the gastrointestinal system. : No signs and/or symptoms were reported regarding the genitourinary system. EENT: No signs and/or symptoms were reported regarding the EENT system. Derm: No signs and/or symptoms reported regarding the dermatologic system. Musculoskeletal: No signs and/or symptoms reported regarding the musculoskeletal system. 01:28 Reassessment: Patient appears in no apparent distress at this time. Patient and/or bm8 family updated on plan of care and expected duration. Pain level reassessed. Patient is alert, oriented x 3, equal unlabored respirations, skin warm/dry/pink. Reassessment: No changes from previously documented assessment. Patient states symptoms have not improved. Pain: Complains of pain in head Pain currently is 8 out of 10 on a pain scale. 02:16 Reassessment: pt reports feeling very sweaty and having a burning sensation in her bm8 chest post Morphine. Provider notified and morphine added to pt's allergy list. 03:34 Reassessment: Patient appears in no apparent distress at this time. Patient and/or bm8 family updated on plan of care and expected duration. Pain level reassessed. Patient is alert, oriented x 3, equal unlabored respirations, skin warm/dry/pink. Patient denies pain at this time. Patient states feeling better. Patient states symptoms have improved. Vital Signs: 00:19 BP 147 / 101; Pulse 60; Resp 16; Temp 97.1(TE); Pulse Ox 92% ; Weight 158.76 kg; Height jb4 5 ft. 4 in. (R); Pain 9/10; 00:42 BP 146 / 98; Pulse 80; Resp 17; Temp 97.1; Pulse Ox 99% ; Pain 10/10; bm8 01:28 BP 143 / 77; Pulse 68; Resp 17; Pulse Ox 97% ; Pain 8/10; bm8 03:34 BP 141 / 74; Pulse 53; Resp 18; Temp 97.5; Pulse Ox 100% ; Pain 0/10; bm8 00:19 Body Mass Index 60.08 (158.76 kg, 162.56 cm) jb4 00:19 Pain Scale: Adult jb4 00:42 Pain Scale: Adult bm8 01:28 Pain Scale: Adult bm8 03:34 Pain Scale: Adult bm8 Salvador Coma Score: 00:42 Eye Response: spontaneous(4). Motor Response: obeys commands(6). Verbal Response: bm8 oriented(5). Total: 15. 01:28 Eye Response: spontaneous(4). Motor Response: obeys commands(6). Verbal Response: bm8 oriented(5). Total: 15. 03:34 Eye Response: spontaneous(4). Motor Response: obeys commands(6). Verbal Response: bm8 oriented(5). Total: 15. ED Course: 00:03 Patient arrived in ED. jj6 00:10 Hayden Estrada MD is Attending Physician. rn 00:22 Triage completed. jb4 00:22 Arm band placed on right wrist. jb4 00:32 Cruzito Lobato, RN is Primary Nurse. bm8 00:42 Patient has correct armband on for positive identification. Bed in low position. Call bm8 light in reach. Side rails up X 1. Adult w/ patient. Client placed on continuous cardiac and pulse oximetry monitoring. NIBP monitoring applied. Pulse ox on. NIBP on. Door closed. Pillow given. Verbal reassurance given. Head of bed elevated. 00:42 No provider procedures requiring assistance completed. Patient maintains SpO2 bm8 saturation greater than 95% on room air. 00:59 CT Head Brain wo Cont In Process Unspecified. EDMS 03:34 Provided Education on: post er care. bm8 03:34 IV discontinued, intact, bleeding controlled, No redness/swelling at site. Pressure bm8 dressing applied. Administered Medications: 00:42 Drug: carBAMazepine PO 300 mg PO once Route: PO; bm8 03:35 Follow up: Response: No adverse reaction bm8 00:42 Drug: HYDROcodone-acetaminophen PO 5 mg-325 mg 1 tabs PO once Route: PO; bm8 03:35 Follow up: Response: No adverse reaction bm8 01:49 Drug: morphine IVP or IV 4 mg IVP once over 4 mins Route: IVP; Infused Over: 4 mins; bm8 Site: right antecubital; 02:17 Follow up: Response: Adverse reaction, Physician notified bm8 03:35 Follow up: Response: No adverse reaction bm8 01:49 Drug: NS 0.9% IV 500 ml 500 ml IV at 1 bolus once; to be given as a bolus over 30 bm8 minutes Volume: 500 ml; Route: IV; Rate: 1 bolus; Site: right antecubital; 03:35 Follow up: Response: No adverse reaction; IV Status: Completed infusion bm8 01:49 Drug: Decadron - Dexamethasone IVP 10 mg IVP once Route: IVP; Site: right antecubital; bm8 03:35 Follow up: Response: No adverse reaction bm8 Medication: 00:42 VIS not applicable for this client. bm8 Outcome: 03:25 Discharge ordered by . rn 03:34 Discharged to home ambulatory, bm8 03:34 Condition: stable 03:34 Discharge instructions given to patient, family, Instructed on discharge instructions, follow up and referral plans. no drinking with medication, no driving heavy equipment, medication usage, safety practices, Demonstrated understanding of instructions, follow-up care, medications, Prescriptions given X 3, 03:36 Patient left the ED. bm8 Signatures: Dispatcher [employer] EDMS Hayden Estrada MD MD rn Bryson, James RN RN jb4 Mervat Medina6 Cruzito Lobato RN RN bm8
--- NOTE | 2025-05-02 03:25 | EDPHYS ---
Physician Documentation [facility] Name: Zacarias Thomson Age: 29 yrs Sex: Female : 1995 Arrival Date: 05/02/2025 Time: 00:00 Bed 5 Private MD: ED Physician Hayden Estrada HPI: 05/02 00:41 This 29 yrs old Female presents to ER via Ambulatory with complaints of rn headache. 00:41 Patient reports left-sided headache. Began earlier today. No injury. 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 Reports sharp stabbing pain and burning pain to the left scalp that hurts to brush her hair or touch her scalp. No focal neurological deficit. Does not feel ill. No trouble swallowing or breathing. Patient reports hurts to turn head left and up. No sore throat. No cough. No rash. No pain with flexion of head.. 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 - Infectious Disease History:: Denies. - Social history:: Smoking status: Patient reports the use of cigarette tobacco products, 3 cigarettes a day. - Family history:: not pertinent. - Hospitalizations: : No recent hospitalization is reported. ROS: 00:41 Constitutional: Negative for fever, chills, and weight loss, Cardiovascular: Negative rn for chest pain, palpitations, and edema, Respiratory: Negative for shortness of breath, cough, wheezing, and pleuritic chest pain, Abdomen/GI: Negative for abdominal pain, nausea, vomiting, diarrhea, and constipation, MS/Extremity: Negative for injury and deformity, Skin: Negative for injury, rash, and discoloration, Neuro: Negative for weakness, numbness, tingling, and seizure, Exam: 00:41 Constitutional: This is a well developed, well nourished patient who is awake, alert, rn and in no acute distress. Neck: No meningismus, no masses or significant lymphadenopathy present. Cardiovascular: Regular rate and rhythm. No pulse deficits. Skin: No rash or lesions MS/ Extremity: Pulses equal, no cyanosis. Neurovascular intact. Full, normal range of motion. Equal circumference. Neuro: Awake and alert, GCS 15, normal gait Vital Signs: 00:19 BP 147 / 101; Pulse 60; Resp 16; Temp 97.1(TE); Pulse Ox 92% ; Weight 158.76 kg; Height jb4 5 ft. 4 in. (R); Pain 9/10; 00:42 BP 146 / 98; Pulse 80; Resp 17; Temp 97.1; Pulse Ox 99% ; Pain 10/10; bm8 01:28 BP 143 / 77; Pulse 68; Resp 17; Pulse Ox 97% ; Pain 8/10; bm8 03:34 BP 141 / 74; Pulse 53; Resp 18; Temp 97.5; Pulse Ox 100% ; Pain 0/10; bm8 00:19 Body Mass Index 60.08 (158.76 kg, 162.56 cm) jb4 00:19 Pain Scale: Adult jb4 00:42 Pain Scale: Adult bm8 01:28 Pain Scale: Adult bm8 03:34 Pain Scale: Adult bm8 Salvador Coma Score: 00:42 Eye Response: spontaneous(4). Motor Response: obeys commands(6). Verbal Response: bm8 oriented(5). Total: 15. 01:28 Eye Response: spontaneous(4). Motor Response: obeys commands(6). Verbal Response: bm8 oriented(5). Total: 15. 03:34 Eye Response: spontaneous(4). Motor Response: obeys commands(6). Verbal Response: bm8 oriented(5). Total: 15. MDM: 00:10 Medical Screening Exam initiated rn 03:23 Differential diagnosis: viral Infection, Trigeminal neuralgia, radiculopathy, rn neuropathy. Data reviewed: vital signs, nurses notes, radiologic studies, CT scan, and as a result, I will discharge patient. Counseling: I had a detailed discussion with the patient and/or guardian regarding the historical points, exam findings, and any diagnostic results supporting the discharge/admit diagnosis, radiology results, the need for outpatient follow up, to return to the emergency department if symptoms worsen or persist or if there are any questions or concerns that arise at home. Special discussion: I discussed with the patient/guardian in detail that at this point there is no indication for admission to the hospital. It is understood, however, that if the symptoms persist or worsen the patient needs to return immediately for re-evaluation. Based on the history and exam findings, there is no indication for further emergent testing or inpatient evaluation. I discussed with the patient/guardian the need to see the neurologist for further evaluation of the symptoms. I discussed with the patient/guardian the need to see the primary care provider for further evaluation of the symptoms. 05/02 00:24 Order name: CT Head Brain wo Cont rn 05/02 01:28 Order name: IV Start; Complete Time: 01:49 rn Administered Medications: 00:42 Drug: carBAMazepine PO 300 mg PO once Route: PO; bm8 03:35 Follow up: Response: No adverse reaction bm8 00:42 Drug: HYDROcodone-acetaminophen PO 5 mg-325 mg 1 tabs PO once Route: PO; bm8 03:35 Follow up: Response: No adverse reaction bm8 01:49 Drug: morphine IVP or IV 4 mg IVP once over 4 mins Route: IVP; Infused Over: 4 mins; bm8 Site: right antecubital; 02:17 Follow up: Response: Adverse reaction, Physician notified bm8 03:35 Follow up: Response: No adverse reaction bm8 01:49 Drug: NS 0.9% IV 500 ml 500 ml IV at 1 bolus once; to be given as a bolus over 30 bm8 minutes Volume: 500 ml; Route: IV; Rate: 1 bolus; Site: right antecubital; 03:35 Follow up: Response: No adverse reaction; IV Status: Completed infusion bm8 01:49 Drug: Decadron - Dexamethasone IVP 10 mg IVP once Route: IVP; Site: right antecubital; bm8 03:35 Follow up: Response: No adverse reaction bm8 Disposition Summary: 05/02/25 03:25 Discharge Ordered Notes: Location: Home rn Problem: new rn Symptoms: have improved rn Condition: Stable rn Diagnosis - Headache rn Followup: rn - With: Private Physician - When: As needed - Reason: Recheck today's complaints, Re-evaluation by your physician Discharge Instructions: - Discharge Summary Sheet rn - General Headache Without Cause rn Forms: - Medication Reconciliation Form rn - 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 - Prescription Opioid Use rn - Patient Portal Instructions rn - Leadership Thank You Letter rn Prescriptions: - Clindamycin HCl 300 mg Oral Capsule - take 1 capsule ORAL route every 6 hours for 10 days; 40 capsule; Refills: 0, rn Product Selection Permitted - Carbamazepine 200 mg Oral Tablet - take 1 tablet ORAL route every 12 hours; 20 tablet; Refills: 0, Product rn Selection Permitted - Diclofenac Sodium 75 mg Oral tablet, delayed release (enteric coated) - take 1 tablet ORAL route 2 times per day; 14 tablet; Refills: 0, Product rn Selection Permitted Signatures: Dispatcher [employer] Hayden Senior MD MD rn Bryson, James RN RN jb4 Cruzito Lobato RN RN bm8
[2025-05-02 03:47] VITALS: BP 141/74; TEMP 97.5; O2SAT 100
--- NOTE | 2025-05-02 04:40 | RAD REPORT ---
EXAM: CT Head Without Intravenous Contrast CLINICAL HISTORY: Headache; Pain TECHNIQUE: Axial computed tomography images of the head/brain without intravenous contrast. Sagittal and coron al reformatted images were created and reviewed. This CT exam was performed using one or more of the following dose reduction techniques: automated exposure control, adjustment of the mA and/or kV according to patient size, and/or use of iterative reconstruction technique. COMPARISON: No relevant prior studies available. FINDINGS: Brain: Unremarkable. No hemorrhage. No significant white matter disease. No edema. Ventricles: Unremarkable. No ventriculomegaly. Bones/joints: Unremarkable. No acute fracture. Soft tissues: Unremarkable. Sinuses: Unremarkable as visualized. No acute sinusitis. Mastoid air cells: Unremarkable as visualized. No mastoid effusion. IMPRESSION: No acute intracranial or extra-axial abnormality. Electronically signed by: Gloria Dickey MD 05/02/2025 02:07 AM CDT RP Due to temporary technical issues with the PACS/everyArt reporting system, reports are being chase d by the in-house radiologist without review as a courtesy to ensure prompt reporting the interpreting radiologist is fully responsible for the content of the report. Transcribed Date/Time: 05/02/2025 4:40 AM
== END 2025-05-02 03:36 | disposition home or self-care (01) ==
LOC: ER
DX: R51.9 Headache, unspecified (principal)
CPT/HCPCS: 96361; 70450; 96375; 96374; 99284; J1100; J7040

== ENCOUNTER 2025-05-03 15:00 | Emergency (ER) | payer BC ==
--- OUTSIDE RECORDS SUMMARY | 2025-05-03 15:16 | XMS REPORT | Continuity of Care Document ---
Author Name Unknown Address [address] [facility] [address] [place] [address] [facility] Address [address] 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 Name Role Phone Esequiel Boyd Primary Care Physician [phone] Rafat Arriola Attending Clinician Unavailable Doctor Unassigned, [place] Attending Clinician U MAX Bojorquez Attending Clinician Unavai lable Lab, Ang - Db Attending Clinician Unavailable Unknown, Attending Attending Clinician Unavailab Max White Attending Clinician [phone] Dorian Womack MD Attending Clinician [phone] DORIAN WOMACK Attending Clinician Unavailable Marques BARBOSA Attending Clinician Unavailable Marques Mcgarry Attending Clinician [phone] UNKNOWN, ATTENDING Attending Clinician Unavailab Zulma Mtz Attending Clinician [phone] ZULMA PALM Attending Clinician Unavailable NETTIE GARVIN Attending Clinician Unavailabl Nettie Benton Attending Clinician [phone] Provider, [facility] Attending Clinician Unavailable ABDELRAHMAN GREY Attending Clinician Unavailable DOROTHY LAUREANO Attending Clinician Unavailable Nae ALEJANDRE, Gretel Attending Clinician Unavailable JENNIE OLIVERA Attending Clinician Unavailable Jozef Gunderson DO Attending Clinician [phone] Dread Feliciano MD Attending Clinician [phone] RIMMA ANDREW Attending Clinician Unavailable Rimma Andrew PA-C Attending Clinician [phone] Vanessa Chen MD Attending Clinician [phone] Abdelrahman Grey MD Attending Clinician [phone] VANESSA CHEN Admitting Clinician Unavailable Marques BARBOSA Admitting Clinician Unavailable Abdelrahman Grey MD Admitting Clinician [phone] ABDELRAHMAN GREY Admitting Clinician Unavailable Payers Payer Name Policy Type Policy Number Effective Date Expirati on Date Source [facility] [id number] 2019 00:00:00 [id number] 6 [id number] [facility] zDO NOT USE 0 [facility] [employer] [id number] 2020 00:00:00 Problems Condition Name Condition Details Condition Category Status Onset Date Resolution Date Last Treatment Date Treating Clinician Comments Source Tobacco use disorder Tobacco use disorder Disease Active 2017-09 00:00: 00 [facility] BMI 50.0-59.9, adult BMI 50.0-59.9, adult Disease Active 2017-09 00:00: 00 [facility] [id number] Obesity, morbid, BMI 50 or higher Problem [facility] [id number] Severe episode of recurrent major depressive disorder, without psychotic features Problem [facility] [id number] Raised intraocula r pressure, unspecifie d laterality Problem [facility] [id number] Chronic fatigue Problem [facility] [id number] Pseudotumo r cerebri Problem [facility] [id number] Essential hypertensi on Problem [facility] Allergies, Adverse Reactions, Alerts Allergy Name Allergy Type Status Severity Reaction(s) Onset Date Inactive Date Treating Clinician Comments Source SULFA (SULFONA MIDE ANTIBIOT ICS) Drug Class Active Rash 04-07 00:00: 00 [facility] Sulfa (Sulfona mide Antibiot ics) Propensi ty to adverse reaction s Active Rash 04-07 00:00: 00 [facility] Sulfa (Sulfona mide Antibiot ics) Propensi ty to adverse reaction s Active Rash 04-07 00:00: 00 [facility] Substanc e with sulfonam rudolph structur e and antibact erial mechanis m of action (substan ce) Substanc e with sulfonam rudolph structur e and antibact erial mechanis m of action (substan ce) Active Unknown [facility] Social History Social Habit Start Date Stop Date Quantity Comments Source [facility] Sex Assigned At [facility] Alcohol intake 2024-01-11 00:00:00 2024-01-11 00:00:00 Current non-drinker of alcohol (finding) [facility] Alcoholic beverage intake 2024-01-11 00:00:00 2024-01-11 00:00:00 Current non-drinker of alcohol (finding) [facility] Exposure to SARS-CoV-2 (event) 2022-08-28 00:00:00 2022-09-07 17:32:00 Not sure [facility] Cigarettes smoked current (pack per day) - Reported 2022-09-07 00:00:00 2022-09-07 00:00:00 [facility] Cigarette pack-years 2022-09-07 00:00:00 2022-09-07 00:00:00 [facility] Tobacco use and exposure 2022-09-07 00:00:00 2022-09-07 00:00:00 Smokeless tobacco non-user [facility] Tobacco Comment 2022-09-07 00:00:00 2022-09-07 00:00:00 patient states she quit 2 months ago [facility] History of Social function 2022-07-28 00:00:00 2022-07-28 00:00:00 [facility] Smoking Status Start Date Stop Date Source Never Smoker [facility] Ex-smoker 2022-09-07 00:00:00 2022-09[facility]07 [facility] Ordered Medication Name Filled Medication Name Start Date Stop Date Current Medication? Ordering Clinician Indication Dosage Frequency Signature (SIG) Comments Components Source predniSONE 20 mg tablet 01-10 00:00: 00 01-16 04:59 :00 No [id number] 20mg Take 1 tablet by mouth in the morning for 5 days. [facility] maalox/diph enhydrAMINE :lidocaine2 % viscous 1:1:1 Susp suspension 01-01 00:00: 00 Yes [id number] 5mL Take 5 mL by mouth 3 (three) times daily as needed (gargle and spit). [facility] bromphenira mine-pseudo ephedrine-D M (BROMFED DM) 2-30-10 mg/5 mL syrup 01-01 00:00: 00 Yes [id number] 10mL Take 10 mL by mouth 4 (four) times daily as needed for Cold symptoms or Cough. [facility] ibuprofen 600 mg tablet 01-01 00:00: 00 Yes [id number] 600mg Take 1 tablet by mouth every 6 (six) hours as needed for Pain (scale 1-3) or Pain (scale 4-6). [facility] ondansetron 4 mg disintegrat ing tablet 01-01 00:00: 00 Yes [id number] 4mg Take 1 tablet by mouth every 12 (twelve) hours as needed for Nausea and Vomiting (N/V). [facility] Sertraline HCl 50 MG Sertraline HCl 50 [...] 1 dose, On 04/03/23 at 2115, MAEGAN [facility] ibuprofen 600 mg tablet 04-03 00:00: 00 01-01 00:00 :00 No [id number] 600mg Take 1 tablet by mouth every 6 (six) hours as needed for Pain (scale 4-6). [facility] erythromyci n 5 mg/gram (0.5 %) ophthalmic ointment 2021-09 00:00: 00 09-15 05:59 :00 No [id number] .5[in_u s] Place 0.5 Inches in both eyes 4 (four) times daily for 7 days. [facility] amoxicillin -clavulanat e (AUGMENTIN) 875-125 mg per tablet 02-11 00:00: 00 02-22 04:59 :00 No [id number] 1{tbl} Take 1 tablet by mouth 2 (two) times daily for 10 days. [facility] albuterol 90 mcg/actuati on inhaler 02-02 00:00: 00 Yes [id number] 2{puff} Inhale 2 Puffs every 6 (six) hours as needed for Wheezing, Shortness of Breath or Chest tightness. [facility] bromphenira mine-pseudo ephedrine-D M (BROMFED DM) 2-30-10 mg/5 mL syrup 02-02 00:00: 00 01-01 00:00 :00 No [id number] 5mL Take 5 mL by mouth 4 (four) times daily as needed for Congestion /Allergies or Cough. [facility] vit calc,iron,f olic ( VITAMIN ORAL) 2020-09 011 17:22: 09 Yes Take by mouth. [facility] ondansetron 4 mg disintegrat ing tablet 11-28 00:00: 00 01-01 00:00 :00 No [id number] 4mg Take 1 tablet by mouth every 8 (eight) hours as needed for Nausea and Vomiting (N/V). [facility] mupirocin 2 % ointment 2019-09 00:00: 00 Yes [id number] Apply to area(s) 3 (three) times daily. [facility] vitamin w/FA tablet 11-28 00:00: 00 Yes [id number] 102 1{tbl} Take 1 tablet by mouth daily. [facility] docusate calcium 240 mg capsule 11-28 00:00: 00 Yes [id number] 102 240mg Take 1 capsule by mouth once daily as needed for Constipati on. [facility] ferrous sulfate 325 mg (65 mg iron) tablet 11-28 00:00: 00 Yes [id number] 102 325mg Take 1 tablet by mouth 2 (two) times daily. [facility] vitamin w/FA tablet 11-28 00:00: 00 Yes [id number] 102 1{tbl} Take 1 tablet by mouth daily. [facility] ibuprofen 600 mg tablet 11-28 00:00: 00 01-01 00:00 :00 No [id number] 102 600mg Take 1 tablet by mouth every 6 (six) hours as needed (Pain). Take with food or milk. [facility] FLUoxetine 40 mg capsule 10-06 00:00: 00 Yes [id number] 40mg Take 1 capsule by mouth daily. [facility] Clindamycin Phosphate 1 % Clindamycin Phosphate 1 % No 1{appli cation} QD Clindamyci n Phosphate 1 % Immunizations Ordered Immunization Name Filled Immunization Name Date Status Comments Source TDAP (ADACEL) VACCINE 2019-10-02 00:00:00 Completed [facility] TDAP (ADACEL) VACCINE 2019-10-02 00:00:00 Completed [facility] TDAP (ADACEL) VACCINE 2019-10-02 00:00:00 Completed [facility] TDAP (ADACEL) VACCINE 2019-10-02 00:00:00 Completed [facility] TDAP (ADACEL) VACCINE 2019-10-02 00:00:00 Completed [facility] TDAP (ADACEL) VACCINE 2019-10-02 00:00:00 Completed [facility] TDAP (ADACEL) VACCINE 2019-10-02 00:00:00 Completed [facility] TDAP (ADACEL) VACCINE 2019-10-02 00:00:00 Completed [facility] TDAP (ADACEL) VACCINE 2019-10-02 00:00:00 Completed [facility] TDAP (ADACEL) VACCINE 2019-10-02 00:00:00 Completed [facility] TDAP (ADACEL) VACCINE 2019-10-02 00:00:00 Completed [facility] Influenza Virus Vaccine Quad .5 mL IM 6+ MO 2019-07-06 00:00:00 Completed [facility] Influenza Virus Vaccine Quad .5 mL IM 6+ MO 2019-07-06 00:00:00 Completed [facility] Influenza Virus Vaccine Quad .5 mL IM 6+ MO 2019-07-06 00:00:00 Completed [facility] Influenza Virus Vaccine Quad .5 mL IM 6+ MO 2019-07-06 00:00:00 Completed [facility] Influenza Virus Vaccine Quad .5 mL IM 6+ MO 2019-07-06 00:00:00 Completed [facility] Influenza Virus Vaccine Quad .5 mL IM 6+ MO 2019-07-06 00:00:00 Completed [facility] Influenza Virus Vaccine Quad .5 mL IM 6+ MO 2019-07-06 00:00:00 Completed [facility] Influenza Virus Vaccine Quad .5 mL IM 6+ MO 2019-07-06 00:00:00 Completed [facility] Influenza Virus Vaccine Quad .5 mL IM 6+ MO 2019-07-06 00:00:00 Completed [facility] Influenza Virus Vaccine Quad .5 mL IM 6+ MO 2019-07-06 00:00:00 Completed [facility] Influenza Virus Vaccine Quad .5 mL IM 6+ MO 2019-07-06 00:00:00 Completed [facility] Influenza Virus Vaccine Quad .5 mL IM 6+ MO (FLUZONE/FLULAVAL/F LUARIX) Unknown Completed [facility] TDAP (ADACEL) VACCINE Unknown Completed [facility] Influenza Virus Vaccine Quad .5 mL IM 6+ MO (FLUZONE/FLULAVAL/F LUARIX) Unknown Completed [facility] TDAP (ADACEL) VACCINE Unknown Completed [facility] Influenza Virus Vaccine Quad .5 mL IM 6+ MO (FLUZONE/FLULAVAL/F LUARIX) Unknown Completed [facility] TDAP (ADACEL) VACCINE Unknown Completed [facility] Influenza Virus Vaccine Quad .5 mL IM 6+ MO (FLUZONE/FLULAVAL/F LUARIX) Unknown Completed [facility] TDAP (ADACEL) VACCINE Unknown Completed [facility] Influenza Virus Vaccine Quad .5 mL IM 6+ MO (FLUZONE/FLULAVAL/F LUARIX) Unknown Completed [facility] TDAP (ADACEL) VACCINE Unknown Completed [facility] Influenza Virus Vaccine Quad .5 mL IM 6+ MO (FLUZONE/FLULAVAL/F LUARIX) Unknown Completed [facility] TDAP (ADACEL) VACCINE Unknown Completed [facility] Vital Signs Vital Name Observation Time Observation Value Comments S ource height 2025-02-09 08:15:00 65.0 [in_i] [facility] weight 2025-02-09 08:15:00 356.4 [lb_av] [facility] temperature 2025-02-09 08:15:00 97.3 [degF] [facility] bmi 2025-02-09 08:15:00 59.3 kg/m2 [facility] oximetry 2025-02-09 08:15:00 96 % [facility] blood pressure systolic 2025-02-09 08:15:00 127 mm[Hg] [facility] blood pressure diastolic 2025-02-09 08:15:00 64 mm[Hg] [facility] Systolic blood pressure 2024-01-11 21:18:00 109 mm[Hg] [facility] Diastolic blood pressure 2024-01-11 21:18:00 73 mm[Hg] [facility] Heart rate 2024-01-11 21:18:00 83 /min [facility] Body temperature 2024-01-11 21:18:00 37.33 Marah [facility] Respiratory rate 2024-01-11 21:18:00 17 /min [facility] Body weight 2024-01-11 21:18:00 156.582 kg [facility] BMI 2024-01-11 21:18:00 59.25 kg/m2 [facility] Oxygen saturation in Arterial blood by Pulse oximetry 2024-01-11 21:18:00 97 /min [facility] Systolic blood pressure 2024-01-02 20:13:00 144 mm[Hg] on lisinopril [facility] Diastolic blood pressure 2024-01-02 20:13:00 84 mm[Hg] on lisinopril [facility] Heart rate 2024-01-02 20:13:00 90 /min [facility] Body temperature 2024-01-02 20:13:00 36.61 Marah [facility] Respiratory rate 2024-01-02 20:13:00 18 /min [facility] Body height 2024-01-02 20:13:00 162.6 cm [facility] Body weight 2024-01-02 20:13:00 156.604 kg [facility] BMI 2024-01-02 20:13:00 59.26 kg/m2 [facility] Oxygen saturation in Arterial blood by Pulse oximetry 2024-01-02 20:13:00 99 /min [facility] height 2023-12-14 10:40:00 65.0 [in_i] [facility] weight 2023-12-14 10:40:00 341 [lb_av] [facility] temperature 2023-12-14 10:40:00 97.2 [degF] [facility] bmi 2023-12-14 10:40:00 56.74 kg/m2 [facility] oximetry 2023-12-14 10:40:00 99 % [facility] respiratory rate 2023-12-14 10:40:00 16 /min [facility] blood pressure systolic 2023-12-14 10:40:00 107 mm[Hg] [facility] blood pressure diastolic 2023-12-14 10:40:00 57 mm[Hg] [facility] height 2023-11-18 11:00:00 65.0 [in_i] [facility] weight 2023-11-18 11:00:00 345 [lb_av] [facility] temperature 2023-11-18 11:00:00 97.3 [degF] [facility] bmi 2023-11-18 11:00:00 57.4 kg/m2 [facility] oximetry 2023-11-18 11:00:00 98 % [facility] blood pressure systolic 2023-11-18 11:00:00 157 mm[Hg] [facility] blood pressure diastolic 2023-11-18 11:00:00 89 mm[Hg] [facility] Systolic blood pressure 2023-04-04 01:23:00 150 mm[Hg] [facility] Diastolic blood pressure 2023-04-04 01:23:00 60 mm[Hg] [facility] Heart rate 2023-04-04 01:23:00 84 /min [facility] Body temperature 2023-04-04 01:21:00 37.22 Marah [facility] Respiratory rate 2023-04-04 01:21:00 20 /min [facility] Body height 2023-04-04 01:21:00 162.6 cm [facility] Body weight 2023-04-04 01:21:00 154.223 kg [facility] BMI 2023-04-04 01:21:00 58.36 kg/m2 [facility] Oxygen saturation in Arterial blood by Pulse oximetry 2023-04-04 01:21:00 98 /min [facility] Systolic blood pressure 2022-09-07 23:33:00 114 mm[Hg] [facility] Diastolic blood pressure 2022-09-07 23:33:00 79 mm[Hg] [facility] Heart rate 2022-09-07 23:33:00 87 /min [facility] Body temperature 2022-09-07 23:33:00 37.33 Marah [facility] Respiratory rate 2022-09-07 23:33:00 15 /min [facility] Body height 2022-09-07 23:33:00 162.6 cm [facility] Body weight 2022-09-07 23:33:00 153.86 kg [facility] BMI 2022-09-07 23:33:00 58.22 kg/m2 [facility] Oxygen saturation in Arterial blood by Pulse oximetry 2022-09-07 23:33:00 99 /min [facility] Systolic blood pressure 2022-07-28 19:27:00 135 mm[Hg] [facility] Diastolic blood pressure 2022-07-28 19:27:00 83 mm[Hg] [facility] Heart rate 2022-07-28 19:27:00 85 /min [facility] Body temperature 2022-07-28 19:27:00 37.11 Marah [facility] Respiratory rate 2022-07-28 19:27:00 14 /min [facility] Body height 2022-07-28 19:27:00 162.6 cm [facility] Body weight 2022-07-28 19:27:00 153.769 kg [facility] BMI 2022-07-28 19:27:00 58.19 kg/m2 [facility] Oxygen saturation in Arterial blood by Pulse oximetry 2022-07-28 19:27:00 99 /min [facility] Systolic blood pressure 2022-02-11 17:45:00 126 mm[Hg] [facility] Diastolic blood pressure 2022-02-11 17:45:00 82 mm[Hg] [facility] Heart rate 2022-02-11 17:45:00 96 /min [facility] Body temperature 2022-02-11 17:45:00 36.83 Marah [facility] Respiratory rate 2022-02-11 17:45:00 17 /min [facility] Body height 2022-02-11 17:45:00 162.6 cm [facility] Body weight 2022-02-11 17:45:00 151.048 kg [facility] BMI 2022-02-11 17:45:00 57.16 kg/m2 [facility] Oxygen saturation in Arterial blood by Pulse oximetry 2022-02-11 17:45:00 98 /min [facility] Systolic blood pressure 2022-02-03 01:34:00 134 mm[Hg] [facility] Diastolic blood pressure 2022-02-03 01:34:00 78 mm[Hg] [facility] Heart rate 2022-02-03 01:34:00 114 /min [facility] Body temperature 2022-02-03 01:34:00 39.5 Marah [facility] Respiratory rate 2022-02-03 01:34:00 18 /min [facility] Body height 2022-02-03 01:34:00 162.6 cm [facility] Body weight 2022-02-03 01:34:00 153.769 kg [facility] BMI 2022-02-03 01:34:00 58.19 kg/m2 [facility] Oxygen saturation in Arterial blood by Pulse oximetry 2022-02-03 01:34:00 97 /min [facility] Systolic blood pressure 2021-07-07 22:21:00 128 mm[Hg] [facility] Diastolic blood pressure 2021-07-07 22:21:00 80 mm[Hg] [facility] Heart rate 2021-07-07 22:21:00 98 /min [facility] Body temperature 2021-07-07 22:21:00 36.89 Marah [facility] Respiratory rate 2021-07-07 22:21:00 16 /min [facility] Body weight 2021-07-07 22:21:00 159.213 kg [facility] BMI 2021-07-07 22:21:00 60.25 kg/m2 [facility] Oxygen saturation in Arterial blood by Pulse oximetry 2021-07-07 22:21:00 96 /min [facility] Procedures Procedure Date / Time Performed Performing Clinicia n Source POCT SARS-COV-2 ANTIGEN (BINAX NOW) 2024-01-02 21:03:00 Dorian Womack [facility] POCT MOLECULAR STREP 2024-01-02 20:12:00 Unknown, Attlianet maciel [facility] XR FOOT 3+ VW LEFT 2023-04-04 02:39:00 Marques Barbosa [facility] NOTICE OF PRIVACY PRACTICES 2023-04-04 01:11:56 Doctor Unassigned, [place] [facility] CONSENT/REFUSAL FOR DIAGNOSIS AND TREATMENT 2023-04-04 01:10:25 Doctor Unassigned, [place] [facility] POCT MOLECULAR FLU 2022-07-28 19:38:00 Unknown, Attend [facility] ASSIGNMENT OF BENEFITS 2022-07-28 19:24:35 Docto r Unassigned, [place] [facility] POCT MOLECULAR FLU 2022-02-03 01:36:00 Unknown, Attend [facility] POCT MOLECULAR STREP 2022-02-03 01:33:00 Unknown, Attlianet maciel [facility] POCT GRP A STREP (MOLECULAR) 2021-07-07 22:33:00 Nettie Garvin [facility] Encounters Start Date/Time End Date/Time Encounter Type Admission Type Attending Clinicians Care Facility Care Department Encounter ID Source 2024-05-24 08:29:01 Outpatient Rafat Arriola [facility] [id number] [facility] 2024-01-13 08:50:01 Outpatient Rafat Arriola [facility] [id number] [facility] 2023-11-18 10:14:01 Outpatient Rafat Arriola [facility] [id number] [facility] 2021-07-27 03:12:16 Emergency [facility] [id number] [facility] 2021-07-26 04:35:53 Emergency [facility] [id number] [facility] 2021-07-24 12:09:16 Emergency [facility] [id number] [facility] 2021-07-24 12:09:16 Outpatient P [facility] [id number] [facility] 2025-02-16 00:00:00 2025-02-16 00:00:00 (TEL) [facility] [id number] [facility] 2025-02-09 00:00:00 2025-02-09 00:00:00 OFFICE VISIT ESTAB PT LEVEL 4 [facility] [id number] [facility] 2024-07-18 00:00:00 2024-07-18 00:00:00 (TEL) [facility]MLC [facility] [id number] [facility] 2024-01-13 00:00:00 2024-02-19 18:12:13 Patient Secure Msg Doctor Unassigned, [place] [facility] 1..114 [id number] [facility] 2024-01-11 16:45:00 2024-01-11 17:14:12 Outpatient R MAX SCOTT [facility] [id number] [facility] 2024-01-11 16:45:00 2024-01-11 17:00:00 Urologist Md Visit [place], Jose - Brady Unknown, Attending [facility] [id number] [facility] 2024-01-11 16:00:00 2024-01-11 16:38:34 Urgent Care Max Scott Unknown, Attending [facility] [id number] [id number] [facility] 2024-01-02 15:00:00 2024-01-02 16:07:06 Urgent Care Dorian Womack Unknown, Attending [facility] 1..114 [id number] [facility] 2024-01-02 15:00:00 2024-01-02 16:07:06 Outpatient R DORIAN WOMACK [facility] [id number] [facility] 2023-12-14 00:00:00 2023-12-14 00:00:00 OFFICE VISIT ESTAB PT LEVEL 4 [facility] [id number] [facility] 2023-11-18 00:00:00 2023-11-18 00:00:00 OFFICE VISIT NEW PT LEVEL 4 [facility] [id number] [facility] [facility] 2023-09-17 00:00:00 2023-09-17 00:00:00 Patient Secure Msg Doctor Unassigned, [facility] 1..114 350.1.13.10 4.2.7.2.686 [id number] [facility] 2023-04-05 00:00:00 2023-04-05 00:00:00 Patient Secure Msg Doctor Unassigned, [facility] 1..114 350.1.13.10 4.2.7.2.686 [id number] [facility] 2023-04-03 20:28:00 2023-04-03 22:27:00 Emergency X Marques BARBOSA [facility] ERT [id number] [facility] 2023-04-03 20:28:00 2023-04-03 22:27:00 Emergency Marques Barbosa [facility] 1..114 350.1.13.10 4.2.7.2.686 [id number] [facility] 2023-04-03 00:00:00 2023-04-03 00:00:00 Orders Only Doctor Unassigned, [facility] 1..840.114 350.1.13.10 4.2.7.2.686 [id number] [facility] 2022-11-16 10:31:38 2022-11-16 10:31:38 Outpatient S[facility] [id number] Wicho Miguel 2022-11-01 19:45:00 2022-11-01 19:45:00 Outpatient R UNKNOWN, ATTENDING [facility] [id number] [facility] 2022-09-07 18:20:00 2022-09-07 18:20:00 Outpatient R UNKNOWN, ATTENDING [facility] [id number] [facility] 2022-09-07 17:40:00 2022-09-07 18:00:00 Urgent Care Zulma Palm Unknown, Attending [facility] 1..840.114 350.1.13.10 4.2.7.2.686 [id number] [facility] 2022-09-07 17:40:00 2022-09-07 17:40:00 Outpatient R ZULMA PALM [facility] [id number] [facility] 2022-09-07 17:20:00 2022-09-07 17:20:00 Outpatient R UNKNOWN, ATTENDING [facility] [id number] [facility] 2022-09-07 00:00:00 2022-09-07 00:00:00 Letter (Out) Zulma Palm [facility] 1.2.840.114 350.1.13.10 4.2.7.2.686 [id number] [facility] 2022-07-28 14:20:00 2022-07-28 14:58:02 Outpatient R NETTIE GARVIN [facility] [id number] [facility] 2022-07-28 14:20:00 2022-07-28 14:58:02 Urgent Care Nettie Garvin Unknown, Attending [facility] 1.2.840.114 350.1.13.10 4.2.7.2.686 [id number] [facility] 2022-07-28 00:00:00 2022-07-28 00:00:00 Orders Only Doctor Unassigned, [facility] 1.2.840.114 350.1.13.10 4.2.7.2.686 [id number] [facility] 2022-07-28 00:00:00 2022-07-28 00:00:00 Letter (Out) Nettie Garvin [facility] 1.2.840.114 350.1.13.10 4.2.7.2.686 [id number] [facility] 2022-02-11 13:00:00 2022-02-11 13:00:00 Urgent Care Dorian Womack [facility] 1.2.840.114 350.1.13.10 4.2.7.2.686 [id number] [facility] 2022-02-11 13:00:00 2022-02-11 12:53:38 Outpatient DORIAN ERNST [facility] [id number] [facility] 2022-02-02 20:45:00 2022-02-02 20:49:03 Outpatient DORIAN ERNST [facility] [id number] [facility] 2022-02-02 20:45:00 2022-02-02 20:49:03 Urgent Care Provider, Jose Abreu Urgent Care Unknown, Attending [facility] 1.84114 350.1.13.10 4.2.7.2.686 [id number] [facility] 2021-11-26 14:00:00 2021-11-26 14:00:00 Outpatient ABDELRAHMAN HIGGINS [facility] [id number] [facility] 2021-11-21 18:00:00 2021-11-21 18:19:39 Outpatient R DOROTHY LAUREANO [facility] [id number] [facility] 2021-11-20 10:00:00 2021-11-20 10:00:00 Outpatient ABDELRAHMAN HIGGINS [facility] [id number] [facility] 2021-10-31 10:30:00 2021-10-31 10:30:00 Outpatient Anthony [facility] [id number] [facility] 2021-07-08 00:00:00 2021-07-08 00:00:[address] [facility] 1.114 350.1.13.10 4.2.7.2.686 [id number] [facility] 2021-07-07 17:09:41 2021-07-07 18:04:40 [facility] 1.84.114 350.1.13.10 4.2.7.2.686 [id number] [facility] 2021-07-07 17:00:00 2021-07-07 18:04:40 [id number] 2021-07-07 00:00:00 2021-07-07 00:00:00 Orders Only Doctor Unassigned, [facility] 1.84114 350.1.13.10 4.2.7.2.686 [id number] [facility] 2021-02-28 11:00:00 2021-02-28 11:00:00 Outpatient Anthony VENEGASJENNIE ZEE [facility] [id number] [facility] 2020-11-28 11:52:00 2020-11-28 14:05:00 Emergency Jozef Gunderson [facility] 1.2.840.114 350.1.13.10 4.2.7.2.686 [id number] 2020-11-28 00:00:00 2020-11-28 00:00:00 Orders Only Doctor Unassigned, [facility] 1.2.840.114 350.1.13.10 4.2.7.2.686 [id number] 2020-08-06 21:07:00 2020-08-06 22:02:00 Emergency Braden Dread [facility] 1.2.840.114 350.1.13.10 4.2.7.2.686 [id number] 2020-08-06 00:00:00 2020-08-06 00:00:00 Orders Only Doctor Unassigned, [facility] 1.2.840.114 350.1.13.10 4.2.7.2.686 [id number] 2020-06-27 13:30:00 2020-06-27 13:30:00 Outpatient RIMMA JOHNSON [facility] [id number] [facility] 2020-03-28 13:30:00 2020-03-28 13:30:00 Outpatient ABDELRAHMAN HIGGINS [facility] [id number] [facility] 2019-12-27 13:00:00 2019-12-27 13:00:00 Outpatient RIMMA JOHNSON [facility] [id number] [facility] 2019-12-27 08:34:05 2019-12-27 08:49:05 [facility]medici ne [facility] 1.2.840.114 350.1.13.10 4.2.7.2.686 [id number] 2019-11-28 07:13:02 2019-11-29 16:05:00 Hospital Encounter Vanessa Chen Vien Cam [facility] 1.2.840.114 350.1.13.10 4.2.7.2.686 [id number] 2019-11-29 13:30:00 2019-11-29 13:30:00 Outpatient ABDELRAHMAN HIGGINS [facility] [id number] [facility] 2019-11-22 12:56:24 2019-11-22 16:32:07 Routine Visit Rimma Andrew [facility] 1.2.840.114 350.1.13.10 4.2.7.2.686 [id number] 2019-11-22 16:00:00 2019-11-22 16:00:00 Outpatient R RIMMA ANDREW [facility] [id number] [facility] 2019-11-16 15:08:00 2019-11-16 19:25:00 Outpatient ABDELRAHMAN [facility] [id number] [facility] Results Test Description Test Time Test Comments Results Result Co mments Source [facility] MOLECULAR [id number] 20:20:11* Test Item Value Reference Range Interpretation Comme nts POCT Molecular Strep (test c ode = 73299-4) Negative Negative Lab Interpretation (test cod e = 84009-8) Normal [facility] MOLECULAR [id number] 19:50:04* Test Item Value Reference Range Interpretation Comme nts POCT Molecular FluA (test co de = 89246-4) Negative Negative POCT Molecular FluB (test co de = 03583-7) Negative Negative Lab Interpretation (test cod e = 74494-4) Normal [facility] MOLECULAR [id number] 01:48:05* Test Item Value Reference Range Interpretation Comme nts POCT Molecular FluA (test co de = 28140-2) Negative Negative POCT Molecular FluB (test co de = 63476-7) Negative Negative Lab Interpretation (test cod e = 05069-9) Normal [facility] MOLECULAR [id number] 01:43:12* Test Item Value Reference Range Interpretation Comme nts POCT Molecular Strep (test c ode = 13612-3) Negative Negative Lab Interpretation (test cod e = 31904-5) Normal [facility] GRP A STREP (MOLECULAR)2021-07-07 22:43:00* Test Item Value Reference Range Interpretation Comme nts POCT GP A STREP (test code = 05306-5) neg Negative - Negative KASSANDRA (test code = KASSANDRA) accurate developme nt and interpretation of all internal controls Lab Interpretation (test code = 88226-9) Normal [facility] Notes Date/Time Note Provider Source 2024-01-11 16:45:00 Images from the original note were not included. Venipuncture collection performed by clean technique on the right anticubitus. Total of 1 attempts were made. Slight pressure and a bandage/dressing were applied to the site(s). The patient experienced no complications. The following specimens were processed according to instructions and sent to [facility] laboratories per lab order on 01/11/2024: LT BLUE SST 1 RST RED LAV PPT DK GREEN (LiHep) DK GREEN (SodH) WANG DK BLUE (K2) DK BLUE (S) ACD Blood Culture NIPT/NTD [facility]
[2025-05-03] MEDS ORDERED: ONDANSETRON 4 MG/2 ML VIAL ONE (16:38)
[2025-05-03] MEDS ORDERED: FENTANYL CITR 100 MCG/2 ML ONE (16:40)
--- NOTE | 2025-05-03 17:57 | RAD REPORT ---
EXAMINATION: CT Neck Angio CLINICAL INDICATION: Female, 29 years old. [facility] MAIN Headache;Numbness;Pain Bed Name: 19 TECHNIQUE: Axial CT images were obtained from the aortic arch to the skull base after intravenous con trast utilizing angiographic protocol. Multiplanar reformats, as well as 3D post-processing (maximum intensity projection images, volume rendered images and/or shaded surface rendered images) w ere generated and reviewed. One or more of the following dose reduction techniques were used: Automated exposure control, adjustment of the mA and/or kV according to patient size, and/or iterativ e reconstruction. Unless otherwise specified, incidental findings do not require dedicated imaging follow-up. COMPARISON: No prior exam. FINDINGS: AORTA: The imaged aortic arch is normal. Normal three-vessel configuration of the arch. CCA: No artifact The common carotid arteries are patent and normal in caliber. ICA/ECA: Bilateral internal and external carotid arteries are patent. There is no significant interna l carotid artery stenosis. VERTEBRAL: The cervical vertebral arteries are patent to the skull base. The right vertebral artery i s markedly diminutive, which could be of developmental nature or secondary to chronic stenosis. SOFT TISSUE: No significant neck soft tissue abnormalities. The visualized lung apices are clear. 3D images confirm these findings. IMPRESSION: No significant flow abnormality of the neck vessels is identified. NASCET criteria used to quantify ICA stenosis, with the following grading scheme: Mild 0-49% stenosis Moderate 50-69% stenosis Severe 70-99% stenosis Reference: [place] Symptomatic Carotid Endarterectomy Trial Collaborators; Annette GONZALEZ, Stella CALLES, Karen RB, et al. Beneficial effect of carotid endarterectomy in symptomatic patients with high-grade carotid stenosis. N Engl J Med. 1990 15;325(7):445-53.
--- NOTE | 2025-05-03 17:59 | RAD REPORT ---
EXAMINATION: CTA HEAD CLINICAL INDICATION: Female, 29 years old. Headache;Numbness;Pain;Visual disturbances TECHNIQUE: Axial CT images were obtained through the head after intravenous contrast utilizing angiog raphic protocol with 3D post-processing (maximum intensity projection images, volume rendered images and/or shaded surface rendered images). One or more of the following dose reduction technique s were used: Automated exposure control, adjustment of the mA and/or kV according to patient size, and/or iterative reconstruction. Unless otherwise specified, incidental findings do not require dedic ated imaging follow-up. COMPARISON: No prior exam. FINDINGS: ICA: The petrous, cavernous, and supraclinoid segments of the bilateral internal carotid arteries are normal. DIANE: Anterior cerebral arteries are normal bilaterally. The anterior communicating artery is patent. MCA: Middle cerebral arteries are normal bilaterally. DAIRY SCIENCE TEACHER: Posterior cerebral arteries are normal bilaterally. Vertebrobasilar: The vertebral arteries are patent. The basilar artery is normal in appearance. 3D images confirm these findings. IMPRESSION: No evidence of large vessel occlusion or hemodynamically significant stenosis
--- NOTE | 2025-05-03 18:03 | RAD REPORT ---
EXAM: CT Head Brain Wo Cont HISTORY: HEADACHE COMPARISON: MRI brain 11/30/2023 TECHNIQUE: Multiple contiguous axial images were obtained for a CT of the brain without contrast. Sag ittal and coronal reformats were performed. One or more of the following dose reduction techniques were used: Automated exposure control, adjus tment of the mA and kV according to patient size, and iterative reconstruction. Unless otherwise specified, incidental findings do not require dedicated imaging follow-up. FINDINGS: No evidence of hydrocephalus, intracranial hemorrhage, or extra-axial fluid collection. The brain is normal in morphology. The calvarium is intact. The visualized paranasal sinuses and mastoid air cells are essentially clear . IMPRESSION: No evidence of acute intracranial abnormality.
[2025-05-03] MEDS ORDERED: LIDOCAINE 1% MPF 5 ML VIAL ONE ×2 (18:15→18:52)
--- NOTE | 2025-05-03 19:02 | EDPHYS ---
Physician Documentation [facility] Name: Zacarias Thomson Age: 29 yrs Sex: Female : 1995 Arrival Date: 05/03/2025 Time: 15:00 Bed 19 Private MD: ED Physician Bretn Dobson HPI: 05/03 16:29 This 29 yrs old Female presents to ER via Ambulatory with complaints of Head cr8 pain. 16:29 Patient is a 29-year-old female with a history of hypertension that comes in the cr8 emergency room complaining of continued headache. Is to the left side of her scalp and neck. States it radiates over the top of her head. Reports pain 10 out of 10. Continues to have nausea. Also reports when the pain comes on she has some blurred vision in the left eye. She states the symptoms began when she was coughing really hard and had sudden onset of the pain. She presented to the emergency room initially and had a CT of the head done which was negative. She was diagnosed with occipital neuralgia and given medicine and discharged. No fever. Currently alert oriented GCS of 15.. 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 - Infectious Disease History:: Denies. - Social history:: Smoking status: Patient reports the use of cigarette tobacco products, smokes one-half pack cigarettes per day. - Hospitalizations: : The patient was recently seen at [facility], Patient was only seen in the emergency department. ROS: 16:29 Constitutional: as per HPI cr8 Exam: 16:00 Constitutional: This is a well developed, well nourished patient who is awake, alert, cr8 and in no acute distress. Patient neurologically intact. GCS 15. No focal deficits on examination. She has tenderness to the left side of the neck and paraspinous muscles. Tenderness to the left occipital scalp. Pupils are equal round and reactive. Heart rate is regular. Rhythm is regular. Respiratory: Lungs have equal breath sounds bilaterally, clear to auscultation. No rales, rhonchi or patient does have some expiratory wheezing bilaterally. No tachypnea, no hypoxia, no respiratory distress MS/ Extremity: Pulses equal, no cyanosis. Neurovascular intact. Full, normal range of motion. Vital Signs: 15:47 BP 148 / 97; Pulse 80; Resp 18; Temp 98.1; Pulse Ox 100% ; Weight 158.76 kg; Height 5 me1 ft. 4 in. ; Pain 10/10; 16:00 BP 105 / 56; Pulse 85; Resp 18; Pulse Ox 96% ; rg5 17:00 BP 105 / 65; Pulse 79; Pulse Ox 99% ; rg5 18:00 BP 119 / 88; Pulse 78; Resp 19; Pulse Ox 99% ; rg5 18:57 BP 126 / 78; Pulse 87; Resp 18; Pulse Ox 98% ; rg5 15:47 Body Mass Index 60.08 (158.76 kg, 162.56 cm) me1 15:47 Pain Scale: Adult me1 Procedures: 16:00 Nerve block: Used lidocaine 1% without epinephrine to infiltrate the area around the cr8 left occipital nerve and point tenderness. Symptoms improved. Area was cleaned with alcohol prior to intervention. MDM: 15:44 Medical Screening Exam initiated cr8 19:05 Data reviewed: vital signs, nurses notes, radiologic studies, CT scan. ED course: No cr8 headache red flags. Neurologic exam without evidence of meningismus, AMS, focal neurologic findings so doubt meningitis, encephalitis, stroke. Presentation not consistent with acute intracranial bleed to include SAH (lack of risk factors, headache history). Patient came in complaining of a headache blurred vision with nausea that began after patient was coughing severely. Concern was for vertebral artery dissection. Went ahead and performed CT head, CTA of head and neck. Findings were unremarkable. Patient was here the day before and had a CT head which was negative. She was diagnosed with occipital neuralgia and given carbamazepine and diclofenac but states they had not helped. Went ahead and use 1% lidocaine without epi to infiltrate 8 point tenderness for some relief. On examination she had some wheezing and. Prescribed albuterol and Medrol Dosepak. Considered pneumonia. However on examination there is no evidence of rales rhonchi respiratory distress hypoxia. She is well-appearing otherwise. Patient's cough is likely related to acute bronchitis that she has no history of asthma or COPD. I discussed otherwise treatment with Tylenol diclofenac and carbamazepine. Discussed other things to help. Advise she needs to follow-up with her PCP in the next few days for reevaluation.. 05/03 15:54 Order name: CT Neck Angio; Complete Time: 18:06 cr8 05/03 15:54 Order name: CT Head Angio; Complete Time: 18:06 cr8 05/03 16:03 Order name: CT Head Brain wo Cont; Complete Time: 18:06 cr8 05/03 15:54 Order name: Saline Lock; Complete Time: 16:32 cr8 Administered Medications: 16:43 Drug: fentaNYL (PF) IVP 25 mcg IVP once Route: IVP; Site: right antecubital; rg5 17:20 Follow up: Response: No adverse reaction; Pain is decreased rg5 16:43 Drug: Ondansetron IVP 4 mg IVP once; over 2 minutes Route: IVP; Site: right antecubital;rg5 17:20 Follow up: Response: No adverse reaction; Pain is decreased rg5 Disposition Summary: 05/03/25 19:02 Discharge Ordered Notes: Location: Home cr8 Condition: Stable cr8 Diagnosis - Occipital neuralgia cr8 - Headache cr8 - Acute bronchitis, unspecified cr8 Followup: cr8 - With: Private Physician - When: 2 - 3 days - Reason: Recheck today's complaints, Continuance of care, Re-evaluation by your physician Followup: cr8 - With: Emergency Department - When: As needed - Reason: Fever > 102 F, If symptoms return, Trouble breathing, Continuance of care Discharge Instructions: - Discharge Summary Sheet cr8 - Acute Bronchitis, Adult cr8 - General Headache Without Cause cr8 - Occipital Neuralgia cr8 - Cough, Adult cr8 Forms: - Medication Reconciliation Form cr8 - Antibiotic Education cr8 - Patient Portal Instructions cr8 - Leadership Thank You Letter cr8 Prescriptions: - albuterol sulfate 90 mcg/actuation Inhalation HFA Aerosol Inhaler - inhale 2 puff INHALATION route every 6 hours as needed for shortness of breath cr8 or wheezing; 1 Applicator; Refills: 0, Product Selection Permitted - Medrol (Roque) 4 mg Oral Tablets, Dose Pack - take 1 tablet ORAL route as directed - follow package instructions; 1 packet; cr8 Refills: 0, Product Selection Permitted Signatures: Dispatcher [employer] EDStacie Gan RN RN me1 Lenin Chavez RN RN rg5 Deuce Guzman NP CROWN WHEEL ASSEMBLER cr8 Corrections: (The following items were deleted from the chart) 19:00 18:57 Constitutional: This is a well developed, well nourished patient who is awake, cr8 alert, and in no acute distress. Respiratory: Lungs have equal breath sounds bilaterally, clear to auscultation. No rales, rhonchi or patient does have some expiratory wheezing bilaterally. No tachypnea, no hypoxia, no respiratory distress cr8 19:09 19:02 Acute bronchiolitis due to other specified organisms cr8 cr8
--- NOTE | 2025-05-03 19:02 | ER ---
Nurse's Notes [facility] Name: Zacarias Thomson Age: 29 yrs Sex: Female : 1995 Arrival Date: 05/03/2025 Time: 15:00 Bed 19 Private MD: Diagnosis: Occipital neuralgia;Headache;Acute bronchitis, unspecified Presentation: 05/03 15:47 Chief complaint: Patient states: CARLSON to posterior left head that radiates over the top me1 of her head. Pain is 10/10 "burning, pulsating", Scalp is tender to touch. Reports nausea, sensitivity to light. Seen here a few days ago and given medication with no relief. Coronavirus screen: At this time, the client does not indicate any symptoms associated with coronavirus-19. Ebola Screen: No symptoms or risks identified at this time. Initial Sepsis Screen: Does the patient meet any 2 criteria? No. Patient's initial sepsis screen is negative. Does the patient have a suspected source of infection? No. Patient's initial sepsis screen is negative. Risk Assessment: Do you want to hurt yourself or someone else? Patient reports no desire to harm self or others. Onset of symptoms is unknown. 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 - Infectious Disease History:: Denies. - Social history:: Smoking status: Patient reports the use of cigarette tobacco products, smokes one-half pack cigarettes per day. - Hospitalizations: : The patient was recently seen at [facility], Patient was only seen in the emergency department. Screenin:00 [facility] ED Fall Risk Assessment (Adult) History of falling in the last 3 months, rg5 including since admission No falls in past 3 months (0 pts) Confusion or Disorientation No (0 pts) Intoxicated or Sedated No (0 pts) Impaired Gait No (0 pts) Mobility Assist Device Used No (0 pt) Altered Elimination No (0 pt) Score/Fall Risk Level 0 - 2 = Low Risk Oriented to surroundings, Maintained a safe environment, Hourly rounding (assess needs \\T\\ fall precautionary measures) done. Abuse screen: Denies threats or abuse. Nutritional screening: No deficits noted. Tuberculosis screening: No symptoms or risk factors identified. Assessment: 16:00 General: Appears uncomfortable, Behavior is calm, cooperative, appropriate for age. rg5 Pain: Complains of pain in head Quality of pain is described as aching, Pain began gradually. 16:00 Neuro: Reports headache. Cardiovascular: Patient's skin is warm and dry. Respiratory: rg5 Reports cough that is dry, hacking, Airway is patent Trachea midline Breath sounds with wheezes. GI: Abdomen is round obese. : No signs and/or symptoms were reported regarding the genitourinary system. EENT: No signs and/or symptoms were reported regarding the EENT system. Derm: Skin is intact, Skin is dry, Skin is normal, Skin temperature is warm. Musculoskeletal: Circulation, motion, and sensation intact. Range of motion: intact in all extremities. 17:00 Reassessment: No changes from previously documented assessment. Patient and/or family rg5 updated on plan of care and expected duration. Pain level reassessed. Patient is alert, oriented x 3, equal unlabored respirations, skin warm/dry/pink. 18:00 Reassessment: Patient and/or family updated on plan of care and expected duration. Pain rg5 level reassessed. Patient is alert, oriented x 3, equal unlabored respirations, skin warm/dry/pink. 18:58 Reassessment: Patient and/or family updated on plan of care and expected duration. Pain rg5 level reassessed. Patient is alert, oriented x 3, equal unlabored respirations, skin warm/dry/pink. Patient states feeling better. Vital Signs: 15:47 BP 148 / 97; Pulse 80; Resp 18; Temp 98.1; Pulse Ox 100% ; Weight 158.76 kg; Height 5 me1 ft. 4 in. ; Pain 10/10; 16:00 BP 105 / 56; Pulse 85; Resp 18; Pulse Ox 96% ; rg5 17:00 BP 105 / 65; Pulse 79; Pulse Ox 99% ; rg5 18:00 BP 119 / 88; Pulse 78; Resp 19; Pulse Ox 99% ; rg5 18:57 BP 126 / 78; Pulse 87; Resp 18; Pulse Ox 98% ; rg5 15:47 Body Mass Index 60.08 (158.76 kg, 162.56 cm) me1 15:47 Pain Scale: Adult ct1 ED Course: 15:03 Patient arrived in ED. mr 15:19 Deuce Guzman, MEDICAL CERTIFICATION SPECIALIST is PHCP. cr8 15:19 Brent Dobson MD is Attending Physician. cr8 15:50 Triage completed. me1 15:50 Arm band placed on Patient placed in waiting room. me1 15:58 Lenin Chavez, PILI is Primary Nurse. rg5 16:00 Radiology exam delayed due to lab results not completed at this time. (BUN/Creatinine) nj test not completed at this time. IV insertion attempt and/or patient not having appropriate IV at this time. 16:00 Patient has correct armband on for positive identification. Bed in low position. Call rg5 light in reach. Side rails up X 1. Adult w/ patient. Door closed. Noise minimized. 16:00 No provider procedures requiring assistance completed. Inserted saline lock: 20 gauge rg5 in right antecubital area, using aseptic technique. Blood collected. Flushed with 10 mL NS. Patient maintains SpO2 saturation greater than 95% on room air. 16:57 CT Neck Angio In Process Unspecified. EDMS 16:57 CT Head Angio In Process Unspecified. EDMS 16:57 CT Head Brain wo Cont In Process Unspecified. EDMS 19:21 Provided Education on: post er care. rg5 19:21 IV discontinued, bleeding controlled, No redness/swelling at site. Pressure dressing rg5 applied. Administered Medications: 16:43 Drug: fentaNYL (PF) IVP 25 mcg IVP once Route: IVP; Site: right antecubital; rg5 17:20 Follow up: Response: No adverse reaction; Pain is decreased rg5 16:43 Drug: Ondansetron IVP 4 mg IVP once; over 2 minutes Route: IVP; Site: right antecubital;rg5 17:20 Follow up: Response: No adverse reaction; Pain is decreased rg5 Medication: 16:00 VIS not applicable for this client. rg5 Outcome: 19:02 Discharge ordered by . cr8 19:20 Discharged to home ambulatory, rg5 19:20 Condition: stable 19:20 Discharge instructions given to patient, Instructed on discharge instructions, Demonstrated understanding of instructions, Prescriptions given X 2, 19:21 Patient left the ED. rg5 Signatures: Dispatcher [employer] EDMS Misty Durbin, Vince Reg Denton Trent Stacie Navarro, RN RN me1 Lenin Chavez RN RN rg5 Deuce Guzman, SIMRAN MEDICAL CERTIFICATION SPECIALIST cr8 Corrections: (The following items were deleted from the chart) 18:13 18:07 BP 138 / 76; Pulse 75bpm; Pulse Ox 100%; rg5 rg5
[2025-05-03 19:32] VITALS: TEMP 98.1
[2025-05-03 19:39] VITALS: BP 126/78; O2SAT 98
== END 2025-05-03 19:21 | disposition home or self-care (01) ==
LOC: ER 15:00
DX: M54.81 Occipital neuralgia (principal); R51.9 Headache, unspecified; J20.9 Acute bronchitis, unspecified; I10 Essential (primary) hypertension; F17.210 Nicotine dependence, cigarettes, uncomplicated
CPT/HCPCS: 70450; 70496; 70498; 96375; 96374; 99284; Q9967; J2003 ×2; J3010; J2405